=== PATIENT | female | born 1945 | race Caucasian/White ===

== ENCOUNTER 2017-06-22 13:08 | Emergency (ER) | payer MEDICARE ==
[~2017-06-22] VITALS: Ht 157.5 cm; Wt 45.4 kg
[~2017-06-22 13:08] MED LIST: ACIDOPHILUS1 EAC3 PO; ACIDOPHILUS1 EAC4 PO; ASPIR 8181 M1 PO; AUGMENTIN 875-1 EACH PO; AZITHROMYCIN 2250 MG PO; B COMPLEX1 EACH PO; CLONAZEPAM; CLONAZEPAM 0.50.5 M1 PO; DOXYCYCLINE 10100 MG PO; DUONEB 2.5-0.5 M3 ML IH; ELEMENTAL CALC600 MG PO; ENOXAPARIN30 MG/0.1 SUBQ; GABAPENTIN 100100 MG PO; KEFLEX250 MG PO; LEVAQUIN 500 M500 M2 PO; LISINOPRIL20 MG PO; MUCINEX TA600 MG/TA2 PO; NAPROSYN500 MG PO; NORCO 5-325 TA1 EACH PO; NORVASC10 MG PO; OMEPRAZOLE20 M1 PO; OXYCODONE HCL 55 MG PO; PENTOXIFYLLINE400 MG PO; PERCOCET PO; PLAVIX 75 MG TA75 M1 PO; PREDNISONE 10 M10 M1 PO; PREDNISONE 10 M10 MG PO; PROAIR HFA8.5 GM IH; PROTONIX40 M1 PO; SILVER NITRATE30 GM TP; SYNTHROID50 MCG PO; THERA M PLUS T1 EAC2 PO; TRAMADOL 50 MG50 MG PO; TYLENOL325 MG PO; VANCOCIN 125 M125 M1 PO; VANCOCIN 250 M250 M1 PO; VANCOMYCIN HCL125 MG PO; VITAMIN D1000 UNI1 PO; ZANTAC 150MG T150 M1; ZANTAC 150MG T150 MG PO
[2017-06-22 14:27] LABS: URINE BILIRUBIN NEGATIVE (Negative); URINE BLOOD NEGATIVE (Negative); URINE CLARITY CLEAR; URINE COLOR YELLOW; URINE GLUCOSE-RANDOM NEGATIVE (Negative); URINE KETONES NEGATIVE (Negative); URINE LEUKOCYTES-REFLEX 1+ (Negative); URINE NITRITE-REFLEX NEGATIVE (Negative); URINE PROTEIN NEGATIVE (Negative); URINE UROBILINOGEN 0.2 E.U./dl (0.2-1.0)
[2017-06-22] MEDS ORDERED: LORCET 5-325 M1 EACH PO (14:45)
[2017-06-22] MEDS ORDERED: DIFLUCAN150 MG PO (14:45)
[2017-06-22 14:55] LABS: BACTERIA-REFLEX None Seen /HPF (None Seen); CRYSTALS None Seen /LPF (None Seen); HYALINE CASTS 0-3 Few /LPF (None Seen); MUCUS 0-3 Light strn/LPF (None Seen); SQUAMOUS 0-3 Few /LPF (0-3); URINE RBC 0-2 Rare /HPF (0-2); URINE WBC-REFLEX 0-5 Rare /HPF (0-5)
[2017-06-22 15:39] VITALS: BP 166/52
== END 2017-06-22 15:40 | disposition home or self-care (01) ==
LOC: M.ERS 13:08
PROVIDERS: Physician Assistant
DX: N76.0 Acute vaginitis (principal); J44.9 Chronic obstructive pulmonary disease, unspecified; Z88.6 Allergy status to analgesic agent; Z88.1 Allergy status to other antibiotic agents; Z88.2 Allergy status to sulfonamides; Z88.8 Allergy status to other drugs, medicaments and biological substances

== ENCOUNTER 2017-07-28 10:08 | Emergency (ER) | payer MEDICARE ==
[~2017-07-28] VITALS: Ht 152.4 cm; Wt 41.7 kg
[~2017-07-28 10:08] MED LIST changes: +DIFLUCAN150 MG PO; +LORCET 5-325 M1 EACH PO
[2017-07-28] MEDS ORDERED: DOXYCYCLINE 10100 M1 PO (10:22)
[2017-07-28] MEDS ORDERED: CYCLOBENZAPRINE5 MG PO (10:32)
[2017-07-28] MEDS ORDERED: PREDNISONE 10 M10 MG PO (10:32)
[2017-07-28 11:05] VITALS: BP 189/70
== END 2017-07-28 11:06 | disposition home or self-care (01) ==
LOC: M.ERS 10:08
DX: M54.32 Sciatica, left side (principal); J44.9 Chronic obstructive pulmonary disease, unspecified; Z88.1 Allergy status to other antibiotic agents; Z88.2 Allergy status to sulfonamides; Z88.8 Allergy status to other drugs, medicaments and biological substances

== ENCOUNTER 2017-07-30 14:20 | Inpatient (IN) | payer MEDICARE ==
[~2017-07-30] VITALS: Ht 154.9 cm; Wt 44.5 kg
[~2017-07-30 14:20] MED LIST changes: +CYCLOBENZAPRINE5 MG PO; +DOXYCYCLINE 10100 M1 PO
[2017-07-30 14:28] VITALS: BP 179/68
[2017-07-30 15:08] LABS: ABSOLUTE EOSINOPHILS 0.1 thou/uL (0.0-0.7); ABSOLUTE LYMPHOCYTES 3.8 thou/uL (0.8-5.3); ABSOLUTE MONOCYTES 0.6 thou/uL (0.0-1.2); ABSOLUTE NEUTROPHILS 7.7 thou/uL (1.6-8.1); BASOPHILS 0.4 %; EOSINOPHILS 0.4 %; HEMATOCRIT 36.4 % (37.0-47.0); LYMPHOCYTES 31.1 %; MCH 31.3 pg (26.0-34.0); MCV 94.9 fL (80.0-100.0); MONOCYTES 5.2 %; MPV 6.4 fl. (7.2-11.1); NUCLEATED RBCS 0 /100WBC; PLATELET COUNT* 357 thou/uL (150-400); POLYS 62.9 %; RBC 3.83 mil/uL (4.20-5.00); RDW-CV 16.2 % (10.5-14.5); WBC 12.3 thou/uL (4.0-11.0)
[2017-07-30 15:17] LABS: PROTIME 9.5 Seconds (9.20-11.50)
[2017-07-30 15:19] LABS: ANION GAP 9 mmol/L (7-16); BUN 24 mg/dL (7-18); CALCIUM 8.7 mg/dL (8.5-10.1); CHLORIDE 106 mmol/L (98-107); CO2 28 mmol/L (21-32); CREATININE 1.3 mg/dL (0.6-1.3); GLUCOSE 87 mg/dL (70-99); POTASSIUM 4.4 mmol/L (3.5-5.1); SODIUM 143 mmol/L (136-145)
[2017-07-30 15:30] LABS: ALBUMIN 3.3 g/dL (3.4-5.0); ALKALINE PHOSPHATASE 117 U/L (46-116); NT-PRO BRAIN NAT PEPTIDE 339 pg/mL (<300); SGOT 29 U/L (15-37); SGPT 25 U/L (30-65); TOTAL BILIRUBIN 0.3 mg/dL (<0.1-1.0); TOTAL PROTEIN 7.4 g/dL (6.4-8.2); TROPONIN-I LEVEL <0.06 ng/mL (<0.06)
[2017-07-30 16:54] VITALS: BP 147/46
[2017-07-30 18:00] VITALS: BP 160/64
--- NOTE | 2017-07-30 18:01 | NUR ---
VSS, ASSUMED CARE OF PT FROM ER, ASSESSMENT PERFORMED AND CHARTED, FALL PRECAUTIONS IN PLACE AND CALL LIGHT IN REACH, PT IS A&O4 BUT CAN BE FORGETFUL. IS MED-HARSHAL STATUS AND ON RA, PT HAS REFUSED BED ALARM AND REFUSES TO CALL OUT FOR HELP, SHE IS UP IN ROOM WALKING DENIES ANY NEED FOR HELP AND STATES "I WILL BE CAREFUL AND NOT FALL" I HAVE PROVITED EDUCATION ON THE IMPROTANCE FOR CALLING OUT FOR HELP, PT STATES SHE UNDERSTANDS BUT STILL REFUSES FALL PRECAUTIONS. PT DENIES ANY PAIN, SKIN IS INTACT AND LINGS ARE CLR/DIM. WILL FOLLOW WITH PLAN OF CARE,
[2017-07-30 20:25] VITALS: BP 132/54
[2017-07-31] VITALS: BP 112/55
[2017-07-31 05:13] LABS: HEMATOCRIT 29.6 % (37.0-47.0); MCH 31.6 pg (26.0-34.0); MCHC 33.3 g/dL (28.0-37.0); MCV 94.7 fL (80.0-100.0); MPV 6.8 fl. (7.2-11.1); RBC 3.13 mil/uL (4.20-5.00); RDW-CV 16.4 % (10.5-14.5); WBC 11.5 thou/uL (4.0-11.0)
--- NOTE | 2017-07-31 05:16 | NUR ---
Pt reports having intermittent leg cramps, rating pain 10/10 while cramping. Getting only partial relief with medication, but pt has been able to get some sleep. VSS. Remains on RA. Will continue to monitor.
[2017-07-31 05:28] LABS: HEMOGLOBIN 9.9 gm/dL (12.0-15.0)
[2017-07-31 05:40] LABS: ALBUMIN 2.9 g/dL (3.4-5.0); CALCIUM 8.3 mg/dL (8.5-10.1); CREATININE 1.4 mg/dL (0.6-1.3); TOTAL BILIRUBIN 0.2 mg/dL (<0.1-1.0); TOTAL PROTEIN 5.9 g/dL (6.4-8.2)
[2017-07-31 05:52] LABS: POTASSIUM 5.9 mmol/L (3.5-5.1)
--- NOTE | 2017-07-31 10:34 | EKG ---
[place] [address] ELECTROCARDIOGRAM REPORT Name: CHAYO PRESTON Room: [address] ADM IN .R.#: [id number] Admission: 07/30/17 Attend Phys: Izzy Aldana MD Discharge: Date of : 45 Report #: [id number] REPORT FOR: //name// [facility] ED Test Date: 2017-07-30 Test Time: 14:48:38 Pat Name: CHAYO PRESTON Department: Room: [facility] Gender: F Belt Turner: MS : 1945 Requested By: Ed Bass Order Number: [id number] MD: Ismael Zhang Measurements Intervals [place] Rate: 81 P: 50 MS: 116 QRS: -1 QRSD: 84 T: 53 QT: 347 QTc: 403 Interpretive Statements Sinus rhythm Borderline short MS interval Compared to ECG 05/14/2017 10:01:05 No significant changes Electronically Signed On 07-31-2017 10:34:50 SHIP [employer]EWARD by Ismael Zhang [email or web address] <ELECTRONICALLY SIGNED> By: Ismael Zhang MD, [facility] 07/31/17 1034 1448 [id number] Ismael Zhang MD, [facility] /EPI
--- NOTE | 2017-07-31 10:47 | NUR ---
CM ASSESSMENT: Pt is A&O. Resides at home with her hushband and dtr. Pt is independent with ADLs, continues to cook and clean, Pt does not drive. Pt has a walker that she can use for mobility. Hx of [facility]. Hx of [facility] SNF. Discussed disposition, Pt states "I'm awfully weak, I want to go back to [facility] for rehab." Spoke with Chrissy at [facility], Pt is good on skilled days. PT/OT evals to be ordered. Following for dc needs.
[2017-07-31 13:19] LABS: CALCIUM 8.2 mg/dL (8.5-10.1); CREATININE 1.5 mg/dL (0.6-1.3)
[2017-07-31 13:21] LABS: POTASSIUM 4.7 mmol/L (3.5-5.1)
--- NOTE | 2017-07-31 19:32 | NUR ---
ASSUMED CARE OF PT AT 0730. PT CONTINUES TO BE A&O CALM AND COOPERATIVE. SHE IS FORGETFUL AT TIMES. PT C/O BACK PAIN HAS BEEN CONTROLLED WITH PRN PO PAIN MEDICATIONS. PT UP WITH SBA TO THE BATHROOM WHERE SHE HAS BEEN VOIDING VIA TOILET. PT VSS AND DENIES ANY C/O DISTRESS. NURSING WILL CONTINUE TO MONITOR.
[2017-07-31 20:02] VITALS: BP 109/47
[2017-08-01 00:07] VITALS: BP 117/48
[2017-08-01 05:04] LABS: HEMATOCRIT 29.8 % (37.0-47.0); MCH 31.7 pg (26.0-34.0); MCHC 33.6 g/dL (28.0-37.0); MCV 94.4 fL (80.0-100.0); MPV 6.5 fl. (7.2-11.1); RBC 3.16 mil/uL (4.20-5.00); RDW-CV 16.4 % (10.5-14.5); WBC 7.7 thou/uL (4.0-11.0)
[2017-08-01 05:48] LABS: ALBUMIN 2.8 g/dL (3.4-5.0); CALCIUM 7.8 mg/dL (8.5-10.1); CREATININE 1.5 mg/dL (0.6-1.3); MAGNESIUM 1.6 mg/dL (1.8-2.4); POTASSIUM 4.6 mmol/L (3.5-5.1); TOTAL BILIRUBIN 0.2 mg/dL (<0.1-1.0); TOTAL PROTEIN 5.5 g/dL (6.4-8.2)
--- NOTE | 2017-08-01 07:45 | NUR ---
ASSUMED CARE OF PT ASSESSED AND DOCUMENTED. PT IS MED SURG. SHE IS A&O WITH NO C/O PAIN. PT IS ON ROOM AIR. VSS WNL. PT IS AFEBRILE. PT HAS WHEEZING NOTED IN HER R LOWER LOBE. BED IS IN LOW POSITION CALL LIGHT IS IN REACH. WM.
--- NOTE | 2017-08-01 07:55 | NUR ---
Pt reports she slept very well overnight. No complaints, VSS. Received melatonin and ambien at HS. At 2250 pt found walking in hallway, not oriented to place or situation. Assisted pt back to her bed and set bed alarm. Pt went back to sleep soon afterward. Got up twice since to use restroom, which set off bed alarm. Pt was oriented at this point, but continued to use bed alarm. Will continue to monitor.
[2017-08-01 08:00] VITALS: BP 109/39
[2017-08-01 09:00] VITALS: BP 109/39
[2017-08-01 16:00] VITALS: BP 140/49
--- NOTE | 2017-08-01 17:47 | NUR ---
PT HAS RESTED IN HER ROOM WATCHING TV AND TALKING ON THE PHONE. FAMILY HAS BEEN AT BED SIDE. MG+ PROTOCOL IN PLACE AND WAITING FOR REDRAW. FLUIDS WERE D/C'D THIS SHIFT. PT WAS TOLD SHE MAY GO HOME TOMORROW AND SHE DOESNT FEEL READY. SHE IS TO SPEAK TO DOC IF SHE FEELS THIS WAY TOMORROW. EDUCATION GIVEN ON DEMAND. HOURLY ROUNDING COMPLETE.
[2017-08-01 20:00] VITALS: BP 136/48
[2017-08-02 00:06] VITALS: BP 130/49
--- NOTE | 2017-08-02 05:15 | NUR ---
ASSUMED CARE AROUND 1930. PT A/OX4. SLEEPING MEDS GIVEN LAST NIGHT AND PT GOT VERY ANXIOUS AND REPORTED BACK PAIN THAT SHE REPORTED RADIATED TO HER VAGINA. PT APPEARED TO BE HAVING SPASMS AND IN TEARS FOR ABOUT TWO HOURS. PRN PAIN MEDS GIVEN AND HEATING PAD APPLIED WITH SOME RELIEF. PT CONTINUED TO BE VERY ANXIOUS AND RESTED LITTLE. MED/SURG STATUS. ON ROOM AIR. IV SALINE LOCKED. VSS, AFEBRILE. UP SBA JUST D/T DROWSINESS WITH HS MEDICATIONS. CALL LIGHT IN REACH, BEDALARM IN PLACE, WILL CONTINUE WITH PLAN OF CARE.
[2017-08-02 05:19] LABS: HEMATOCRIT 27.5 % (37.0-47.0); HEMOGLOBIN 9.3 gm/dL (12.0-15.0); MCH 31.6 pg (26.0-34.0); MCHC 33.8 g/dL (28.0-37.0); MCV 93.5 fL (80.0-100.0); MPV 6.4 fl. (7.2-11.1); RBC 2.94 mil/uL (4.20-5.00); RDW-CV 16.8 % (10.5-14.5); WBC 14.6 thou/uL (4.0-11.0)
[2017-08-02 05:20] LABS: CALCIUM 7.9 mg/dL (8.5-10.1); CREATININE 1.3 mg/dL (0.6-1.3); POTASSIUM 4.3 mmol/L (3.5-5.1)
[2017-08-02 07:55] VITALS: BP 114/42
[2017-08-02] MEDS ORDERED: MELATONIN5 M1 PO (09:43)
[2017-08-02] MEDS ORDERED: PULMICORT0.5 MG/2 M INH (09:43)
[2017-08-02] MEDS ORDERED: DUONEB 2.5-0.5 M3 ML INH (09:43)
[2017-08-02] MEDS ORDERED: PREDNISONE 20 M20 M1 PO (09:45)
--- NOTE | 2017-08-02 09:58 | NUR ---
Pt should be ready to dc tomorrow to [facility] [place], spoke with Chrissy at [facility], they are able to accept Pt tomorrow. DC orders need to be faxed to [phone]. Call Chrissy at [phone] to arrange dc and transport. Nurse report number is [phone]. Chart will need to be copied.
[2017-08-02 11:59] VITALS: BP 124/47
--- NOTE | 2017-08-02 13:12 | NUR ---
RECEIVED REPORT. ASSUMED CARE OF PT AT 0730. PT A&OX4, SEEMS A BIT ANXIOUS. VSS. O2 SAT 93% ON RA. PT HAVING SOME FACIAL TWITCHING AND SPEECH IS SLIGHTLY SLURRED - PAST CVA SEQUALE. PT IS M/S STATUS. AM ASSESSMENT AND VITALS COMPLETED CHARTED. IV SALINE LOCKED. PT REPORTED CHRONIC BACK PAIN AT 6/10 THIS AM, RECEIVED PO PAIN MEDICATION WITH PARTIAL RELIEF. PT INFORMED OF PLAN OF CARE, COMMUNICATES UNDERSTANDING. PT STATED THIS MORNING "I'M NOT SURE I'M READY TO LEAVE THE HOSPITAL, I FEEL WEAK STILL." PT EDUCATED THAT SHE WILL BE DISCHARGING TO A REHAB FACLITY TO GET STRONGER. PT COMMUNICATES UNDERSTANDING. PT UP WITH STAND BY ASSIST TO THE BATHROOM; VOIDING WITHOUT ISSUE. PT EATING AND DRINKING WITHOUT ISSUE. HIGH FALL RISK PRECAUTIONS ARE IN PLACE. CALL LIGHT IS WITHIN REACH. WILL CONTINUE TO MONITOR.
[2017-08-02 15:56] VITALS: BP 110/38
--- NOTE | 2017-08-02 19:00 | NUR ---
PT REMAINS A/OX4. VSS. O2 SAT >90% ON ROOM AIR. M/S STATUS. LOST IV ACCESS - AWAITING RESPONSE FROM REQUEST TO LEEAVE IV OUT. PT HAS DENIED PAIN OR DISCOMFORT THE REST OF THE SHIFT. PT WORKED WITH PT/0T TODAY. PT UP WITH ASSIST X1 TO THE BATHROOM TO VOID, NO ISSUES. PT EATING AND DRINKING WITHOUT ISSUE. PT PROGESSING TOWARDS GOALS, MAY DC IN AM TO SNF. HIGH FALL RISK PRECAUTIONS IN PLACE. PT REPOSITIONING SELF IN THE BED FOR COMFORT. CALL LIGHT IS WITHIN REACH. HOURLY ROUNDING PERFORMED.
[2017-08-02 20:00] VITALS: BP 131/48
[2017-08-02 23:58] VITALS: BP 130/54
--- NOTE | 2017-08-03 05:25 | NUR ---
ASSUMED CARE AROUND 1930. PT A/OX4, RESTED SOME TONIGHT. PT VERY CONFUSED WITH SLEEPING MEDS. PT IMPULSIVE AND SETTING OFF BEDALARM ON A FEW OCCASIONS. PT REPORTING LEG/BACK SPASMS AGAIN TONIGHT BUT NOT MUCH LAST NIGHT. MED/SURG STATUS. ON ROOM AIR. NO IV ACCESS. UP SBA TO BR WITH WALKER. VSS, AFEBRILE. PRN PAIN MEDS GIVEN AND KPAD ON BACK. SEE OTHER CHARTING. CALL LIGHT IN REACH, BEDALARM ON, WILL CONTINUE WITH PLAN OF CARE.
[2017-08-03 08:10] VITALS: BP 143/46
[2017-08-03 12:05] VITALS: BP 144/59
[2017-08-03] MEDS ORDERED: TESSALON PERLE100 MG PO (12:52)
[2017-08-03] MEDS ORDERED: NYSTATIN100000 UNI PO (12:52)
[2017-08-03 13:40] VITALS: BP 144/59
--- NOTE | 2017-08-03 13:47 | NUR ---
CM WAS INFORMED BY DR SOTO THAT THE PATIENT IS READY TO D/C. CM SPOKE TO THE PATIENT TO DISCUSS DISCHARGE PLANNING NEEDS, AND ANY QUESTIONS OR CONCERNS THAT SHE MAY HAVE. PATIENT HAS NO QUESTIONS OR CONCERNS AT THIS TIME. CM SPOKE TO [facility] TO INFORM OF THE PATIENTS DISCHARGE. ALVARO IN AGREEMENT. CM FAXED PATIENTS D/C ORDERS TO [facility]. CM CONTACTED [facility] AND SETUP TRANSPORTATION TO [facility] AT [phone]. CM SPOKE TO THE RN IN-CHARGE OF THE PATIENT AND INFORMED OF THE PATIENTS DISCHARGE, TIME OF TRANSPORT AND WHERE TO CALL REPORT. CM WILL REMAIN AVIALABLE TO ASSIST AND FOLLOW NEEDED.
--- NOTE | 2017-08-03 15:15 | NUR ---
PT WITH COMPLETE DC ORDER. REVIEWED DC INSTRUCTIONS AND MED LIST WITH PT. ANSWERED QUESTIONS TO PT SATISFACTION. MONITOR AND IV HAD BEEN DC'D SINCE 08/02/17. PT IN POSSESSION OF ALL BELONGINGS. TRANSPORTER HERE TO TAKE PT TO [facility]IA [facility]. PT LEFT UNIT VIA AT THIS TIME. THIS NURSE ACCOMPANIED TRANSPORTER AND PT WITH HER BELONGINGS TO [facility].
== END 2017-08-03 15:27 | DRG 189 ==
LOC: M.ERS 14:20 → M.TBA-ER 15:51 → M.2W 15:51
PROVIDERS: Emergency Medicine; ADMIT Internal Medicine
DX: J96.21 Acute and chronic respiratory failure with hypoxia (principal); J44.1 Chronic obstructive pulmonary disease with (acute) exacerbation; N17.9 Acute kidney failure, unspecified; R65.10 Systemic inflammatory response syndrome (SIRS) of non-infectious origin without acute organ dysfunction; Z90.49 Acquired absence of other specified parts of digestive tract; Z88.6 Allergy status to analgesic agent; Z95.820 Peripheral vascular angioplasty status with implants and grafts; Z88.1 Allergy status to other antibiotic agents; Z88.2 Allergy status to sulfonamides; Z80.1 Family history of malignant neoplasm of trachea, bronchus and lung; Z88.8 Allergy status to other drugs, medicaments and biological substances; Z87.891 Personal history of nicotine dependence; Z86.718 Personal history of other venous thrombosis and embolism

== ENCOUNTER 2017-08-20 10:20 | Inpatient (IN) | payer MEDICARE ==
[~2017-08-20] VITALS: Ht 152.4 cm; Wt 49.0 kg
[~2017-08-20 10:20] MED LIST changes: +DUONEB 2.5-0.5 M3 ML INH; +MELATONIN5 M1 PO; +NYSTATIN100000 UNI PO; +PREDNISONE 20 M20 M1 PO; +PULMICORT0.5 MG/2 M INH; +TESSALON PERLE100 MG PO
[2017-08-20 10:39] VITALS: BP 185/72
[2017-08-20] MEDS ORDERED: DUONEB 2.5-0.5 M3 ML INH (10:46)
[2017-08-20] MEDS ORDERED: PLAVIX 75 MG TA75 M1 PO (10:47)
[2017-08-20 12:01] LABS: HEMATOCRIT 37.7 % (37.0-47.0); HEMOGLOBIN 12.6 gm/dL (12.0-15.0); MCHC 33.5 g/dL (28.0-37.0); MCV 95.4 fL (80.0-100.0); MPV 6.2 fl. (7.2-11.1); NUCLEATED RBCS 0 /100WBC; PLATELET COUNT* 312 thou/uL (150-400); RBC 3.95 mil/uL (4.20-5.00); WBC 15.1 thou/uL (4.0-11.0)
[2017-08-20 12:06] LABS: CALCIUM 9.1 mg/dL (8.5-10.1); CREATININE 1.2 mg/dL (0.6-1.3); POTASSIUM 4.3 mmol/L (3.5-5.1)
[2017-08-20 12:07] LABS: BE -0.2 mmol/L (-2 to +3); HCO3 22.5 mmol/L (22.0-26.0); pH 7.479 (7.340-7.450)
[2017-08-20 12:09] LABS: PO2 48.3 mmHg (75.0-100.0)
[2017-08-20 12:11] LABS: TOTAL BILIRUBIN 0.8 mg/dL (<0.1-1.0); TOTAL PROTEIN 7.6 g/dL (6.4-8.2)
[2017-08-20 12:25] LABS: ALBUMIN 2.9 g/dL (3.4-5.0)
[2017-08-20 12:59] LABS: ABSOLUTE LYMPHOCYTES 2.7 thou/uL (0.8-5.3); ABSOLUTE MONOCYTES 0.6 thou/uL (0.0-1.2); ABSOLUTE NEUTROPHILS 11.8 thou/uL (1.6-8.1); ANISOCYTOSIS 1+; PLATELET ESTIMATE ADEQUATE; POIKILOCYTOSIS 1+
[2017-08-20 14:23] VITALS: BP 150/63
[2017-08-20 14:23] LABS: URINE BILIRUBIN NEGATIVE (Negative); URINE BLOOD TRACE (Negative); URINE CLARITY CLEAR; URINE COLOR YELLOW; URINE GLUCOSE-RANDOM NEGATIVE (Negative); URINE KETONES TRACE (Negative); URINE LEUKOCYTES-REFLEX NEGATIVE (Negative); URINE NITRITE-REFLEX NEGATIVE (Negative); URINE PROTEIN 1+ (Negative); URINE SPECIFIC GRAVITY <= 1.005 (1.005-1.030); URINE UROBILINOGEN 0.2 E.U./dl (0.2-1.0)
[2017-08-20 16:00] VITALS: BP 142/61
--- NOTE | 2017-08-20 17:55 | NUR ---
PT ADMITTED WITH PNEUMONIA COARSE AND WHEEZING UPON ARRIVAL IV FLUIDS RUNNING AND IV ABTS C/O PAIN TO BOTTOM AND BACK X-RAYS DONE Q2H TURN PT DIAPHORETIC AND CLAMMY BUT C/O BEING COLD FAMILY AT BEDSIDE EARLIER CAME OUT OF REHAB ON SATURDAY AND STILL WEAK COUGHING FREQUENTLY AND SORE ALL OVER
[2017-08-20 20:32] VITALS: BP 149/59
[2017-08-21] VITALS: BP 122/47
[2017-08-21 04:00] VITALS: BP 131/53
[2017-08-21 04:32] LABS: ABSOLUTE EOSINOPHILS 0.1 thou/uL (0.0-0.7); ABSOLUTE MONOCYTES 0.4 thou/uL (0.0-1.2); ABSOLUTE NEUTROPHILS 10.3 thou/uL (1.6-8.1); BASOPHILS 0.2 %; EOSINOPHILS 0.7 %; HEMATOCRIT 29.5 % (37.0-47.0); LYMPHOCYTES 8.1 %; MCH 32.7 pg (26.0-34.0); MCHC 34.4 g/dL (28.0-37.0); MCV 95.1 fL (80.0-100.0); MONOCYTES 3.5 %; MPV 6.4 fl. (7.2-11.1); NUCLEATED RBCS 0 /100WBC; PLATELET COUNT* 272 thou/uL (150-400); POLYS 87.5 %; RBC 3.11 mil/uL (4.20-5.00); RDW-CV 16.7 % (10.5-14.5); WBC 11.7 thou/uL (4.0-11.0)
[2017-08-21 04:57] LABS: HEMOGLOBIN 10.2 gm/dL (12.0-15.0)
--- NOTE | 2017-08-21 06:47 | NUR ---
Pt slept overnight. Up to BSC to void w/ min assist. Pt diaphoretic for first half of shift, soaking her gown and bed linens. BG 90, and VSS. Afebrile at beginning of shift, but ran T of 101 at 0400. Tylenol given. T down to 99.1 just before 0600. Pt c/o pain to bilat buttocks. States she thinks she pulled some muscles while working with therapy a few days ago. Tramadol given as ordered per patient request; reports some relief afterwards. Will continue to monitor.
[2017-08-21 08:00] VITALS: BP 88/40
--- NOTE | 2017-08-21 10:18 | NUR ---
ASSUMED PATIENT CARE THIS MORNING AT 7:15 AM. REPORT RECEIVED FROM NURSE. PATIENT IS ALERT, AWAKE, ORIENTED X 3 TO 4. VITALS SIGNS TAKEN, BP 88/40, HR 73, O2 SATURATION 100 ON 2 L NC. TEMP 97.4. BLOOD PRESSURE WAS RECHECKED 1 HOUR LATER BEFORE AM [facility] ADMINISTRATION. NEW READING 123/47.. SINUS RYHTM ON THE MONITOR. MRSA SWAB PERFORMED AT BEDSIDE. ASSESSMENT PERFORMED WELL. REFER TO CHART. GOAL IS TO MAINTAIN OXYGENATION, PREVENT FALL, OOB TO CHAIR, IV ANTIBIOTICS. 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 DID COMPLAIN OF PAIN LEVEL OF 10 IN RIGHT UPPER BACK. TRAMADOL WAS ADMISNINTERED. WILL CONTINUE MONITORING
[2017-08-21 12:00] VITALS: BP 129/60
--- NOTE | 2017-08-21 13:48 | NUR ---
TRAMADOL WAS ADMINISTERED FOR PAIN THIS AM IN R UPPER BACK. PT WAS COMPLAINING OF PAIN LEVEL OF THAT INCREASES WITH WALKING AND STANDING. PAIN RECHECKED ONE HOUR AFTER. PATIENT STATED : "NO PAIN AT THIS TIME". THEN 2 HOURS AFTER THAT, MONITOR FOR PAIN, PATIENT COMPLIAN OF PAIN LEVEL OF 6 WHEN TAKING DEEP BREATH IN RIGHT UPPER BACK AREA. LIDOCAINE PATCH WAS ADMINISTERED ORDERED.WILL CONTINUE TO MONITOR FOR PAIN
--- NOTE | 2017-08-21 15:13 | NUR ---
Pt currently working with PT. Pt known to this CM from previous hospital stay. Per chart, Pt discharged from [facility] yesterday, and ended up coming to the hospital, admitted with PNA w/ back and sacral pain. Pt normally resides at home with her and dtr. CM to f/u later to discuss home situation. Per OT, Pt requested info for the [facility] dental school, CM to provided. Following.
[2017-08-21 16:00] VITALS: BP 132/47
--- NOTE | 2017-08-21 18:59 | NUR ---
HYDROCODONE ADMINISTERED FOR PAIN LEVEL OF 6. RECHECKED PAIN AFTER 1 HOUR PATIENT STATES PAIN WENT DOWN TO 4. COLD COMPRESSED WAS APPLIED FOR TEMPERATURE OF 101.1 AND TYLENOL WAS ADMINISTERED. TEMPERATURE READING IS NOW 99.8 ORALLY. PATIENT IS MORE AWAKE. NOW LAYING IN BED. VITALS ARE WITHIN NORMAL LIMIT. PAGE WAS SENT TO DR ORDOÑEZ COVERING FOR DR SOTO REGARDING CONTINUOUS PAIN AND TEMPERATURE ISSUE.
[2017-08-21 20:22] VITALS: BP 101/39
[2017-08-22 00:09] VITALS: BP 92/33
[2017-08-22 04:08] VITALS: BP 102/54
--- NOTE | 2017-08-22 05:09 | NUR ---
Temp 100.3 axillary at beginning of shift, then afebrile for remainder of shift. Breath snds improved from previous night. VSS, though BP 90s-100s/30s. No complaints from patient. Congested sounding non-productive cough early this morning. Reports no BM since prior to admission; warm mixture of apple juice & prune juice given. Will continue to monitor.
[2017-08-22 08:00] VITALS: BP 107/42
--- NOTE | 2017-08-22 09:18 | NUR ---
ASSUMED PATIENT CARE THIS AM AT 7:15 . RECEIVED REPORT FROM NURSE. PATIENT IS ALERT, AWAKE , ORIETED X 3. FORGETFUL AT TIMES. VITAL SIGNS WITHIN NORMAL LIMIT. TEMPERATURE 98.1. COMPLAIN OF PAIN LEVEL OF 8 IN LOWER BACK. LIDOCAINE TO BE ADMINISTERED AT THE HURTING SPOT. PATIENT STATES CONCERN ABOUT PAIN. GOAL IS TO TREAT PAIN, PROMOTE MOVEMENT, PREVENT FALL, RELIEVE CONSTIPATION. DR SOTO ALREADY CONTACTED TO ORDER SOME STOOL SOFTENER. VANCO THROUGH AND XRAY OF CHEST TO BE DONE TODAY. IV LINE IN L HAND PATENT, FLUID INFUSING AT 150 CC/HR WILL CONTINUE TO MONITOR.
[2017-08-22 12:05] VITALS: BP 110/47
[2017-08-22 15:13] LABS: ABSOLUTE EOSINOPHILS 0.1 thou/uL (0.0-0.7); ABSOLUTE LYMPHOCYTES 1.2 thou/uL (0.8-5.3); ABSOLUTE MONOCYTES 0.5 thou/uL (0.0-1.2); ABSOLUTE NEUTROPHILS 8.7 thou/uL (1.6-8.1); BASOPHILS 0.2 %; EOSINOPHILS 0.9 %; HEMATOCRIT 25.5 % (37.0-47.0); HEMOGLOBIN 8.7 gm/dL (12.0-15.0); LYMPHOCYTES 11.7 %; MCHC 34.3 g/dL (28.0-37.0); MCV 96.2 fL (80.0-100.0); MONOCYTES 5.1 %; MPV 6.3 fl. (7.2-11.1); NUCLEATED RBCS 0 /100WBC; PLATELET COUNT* 256 thou/uL (150-400); POLYS 82.1 %; RBC 2.65 mil/uL (4.20-5.00); RDW-CV 16.5 % (10.5-14.5); WBC 10.5 thou/uL (4.0-11.0)
[2017-08-22 15:27] LABS: CALCIUM 7.9 mg/dL (8.5-10.1); CREATININE 1.4 mg/dL (0.6-1.3); POTASSIUM 4.4 mmol/L (3.5-5.1)
[2017-08-22 15:31] LABS: MAGNESIUM 1.7 mg/dL (1.8-2.4); TOTAL BILIRUBIN 0.4 mg/dL (<0.1-1.0); TOTAL PROTEIN 5.7 g/dL (6.4-8.2)
[2017-08-22 16:18] VITALS: BP 127/82
--- NOTE | 2017-08-22 16:40 | 2DMMODE ---
[place] [address] 2 D/M-MODE ECHOCARDIOGRAM Name: CHAYO PRESTON Room: [address] IN [facility]#: [id number] Admission: 08/20/17 Attend Phys: Izzy Aldana, Discharge: Date of : 45 Date of Service: 08/22/17 1639 Report #: [id number] THIS REPORT FOR: //name// APPROVED REPORT Study performed: 08/22/2017 15:20:20 EXAM: Comprehensive 2D, Doppler, and color-flow Echocardiogram Patient Location: In-Patient Room #: 229 Status: routine BSA: 1.39 HR: 96 bpm BP: 110/47 mmHg Rhythm: NSR Other Information Study Quality: Good Indications Dyspnea 2D Dimensions LVEF(%): 75.27 (>50%) IVSd: 8.14 (7-11mm) LVOT Diam: 18.82 (18-24mm) LVDd: 38.41 mm PWd: 8.25 (7-11mm) Ascending Ao: 32.35 (22-36mm) LVDs: 21.74 (25-40mm) Aortic Root: 30.14 mm Beck's LVEF: 75.27 % Volumes Left Atrial Volume (Systole) LA ESV Index: 19.40 mL/m2 Aortic Valve AoV Peak Deepak.: 1.77 m/s AO Peak Gr.: 12.51 mmHg LVOT Max P.94 mmHg AO Mean Gr.: 6.64 mmHg LVOT Mean P.67 mmHg LVOT Max V: 1.58 m/s AO V2 VTI: 31.48 cm LVOT Mean V: 1.12 m/s CHERELLE (VTI): 2.70 cm2 LVOT V1 VTI: 30.50 cm AI Bollinger: 4.40 m/s2 AI PHT: 253.05 [place] [address] 2 D/M-MODE ECHOCARDIOGRAM Name: CHAYO PRESTON Room: [address] IN [facility]#: [id number] Admission: 08/20/17 Attend Phys: Izzy Aldana, Discharge: Date of : 45 Date of Service: 08/22/17 1639 Report #: [id number] Mitral Valve E/A Ratio: 0.84 MV Decel. Time: 179.39 ms MV E Max Deepak.: 1.17 m/s MV PHT: 52.02 ms MVA (PHT): 4.23 cm2 TDI E/Lateral E': 9.00 E/Medial E': 9.00 Medial E' Deepak.: 0.13 m/s Lateral E' Deepak.: 0.13 m/s Pulmonary Valve PV Peak Deepak.: 0.93 m/s PV Peak Gr.: 3.45 mmHg Tricuspid Valve TR Peak Gr.: 24.30 mmHg RVSP: 29.00 mmHg Left Ventricle The left ventricle is normal size. There is normal LV segmental wall motion. There is normal left ventricular wall thickness. Left ventricular systolic function is normal. The left ventricular ejection fraction is within the normal range. LVEF is 60%. Grade I - abnormal relaxation pattern. Right Ventricle The right ventricle is normal size. The right ventricular systolic function is normal. Atria The left atrium size is normal. The right atrium size is normal. Aortic Valve Mild aortic valve sclerosis. Mild aortic regurgitation. There is no aortic valvular stenosis. Mitral Valve The mitral valve is normal in structure. There is no mitral valve regurgitation noted. No evidence of mitral valve stenosis. Tricuspid Valve The tricuspid valve is normal in structure. Mild tricuspid regurgitation. The RVSP is ___29____ mmHg[place] [address] 2 D/M-MODE ECHOCARDIOGRAM Name: MOHANCHAYO Ann Room: [address] IN M.R.#: [id number] Admission: 08/20/17 Attend Phys: Izzy Aldana, Discharge: Date of : 45 Date of Service: 08/22/17 1639 Report #: [id number] The pulmonary valve is normal in structure. There is no pulmonic valvular regurgitation. Great Vessels The aortic root is normal in size. IVC is normal in size and collapses with >50% inspiration Pericardium There is no pericardial effusion. <Conclusion> The left ventricle is normal size. There is normal left ventricular wall thickness. Left ventricular systolic function is normal. The left ventricular ejection fraction is within the normal range. LVEF is 60%. Grade I - abnormal relaxation pattern. The right ventricle is normal size. The left atrium size is normal. Mild aortic valve sclerosis. Mild aortic regurgitation. There is no aortic valvular stenosis. The mitral valve is normal in structure. The tricuspid valve is normal in structure. Mild tricuspid regurgitation. The RVSP is ___29____ mmHg. IVC is normal in size and collapses with >50% inspiration There is normal LV segmental wall motion. <ELECTRONICALLY SIGNED> By: Zachary Burkett MD, FACC 08/22/17 1639 [id number] Zachary Burkett MD, FACC /INF
--- NOTE | 2017-08-22 17:39 | NUR ---
PATIENT HAS BEEN STABLE DURING THE WHOLE DAY. PAIN MEDICATION HAS BEEN ADMINISTERED AROUND THE CLOCK. VITAL SIGNS HAS BEEN STABLE. 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 UA CULTURE HAS BEEN COLLOECTED AND SENT OT LAB. SPUTUM CULTURE PENDING. PATIENT HAS NOT BEEN ABLE TO COUGH ANY SPUTUM OUT. DR DEY DID SEE PT AND MED CHANGES ON MEDICATIONS. SEE EMAR. XRAY OF ABDOMEN RESULT NORMAL. LABS WERE RECEIVED AND RESULT COMMUNICATED TO DR. DEY OVER THE PHONE. AT 1730 PATIENT TRANSFER TO [facility] ROOM 114 VIA WHEELCHAIR ACCOPMPANIED WIHT O2 NC 2L. AND 2 TRANSPORTERS. BELONGINGS BROUGHT ALONG. REPORT COMMUNICATED TO NURSE. PATIENT' NOTIFIED OVER THE PHONE ABOUT TRANSFER.
--- NOTE | 2017-08-22 18:49 | NUR ---
ASSUMED CARE OF PATIENT AFTER TRANSFER FROM TELEMETRY. ALERT AND ORIENTED X4. AGREE WITH PREVIOUS NURSES ASSESSMENT. VSS ON 2 LITERS. PATIENT ORIENTED TO ROOM AND INSTRUCTED TO CALL FOR NEEDS. PATIENT HAS SUPPORTIVE FAMILY A BEDSIDE. HOURLY ROUNDS. CALL LIGHT IS WITHIN REACH. NURSING WILL CONTINUE TO MONITOR.
[2017-08-22 20:00] VITALS: BP 122/53
[2017-08-23 00:27] VITALS: BP 107/40
[2017-08-23 05:45] LABS: HEMATOCRIT 30.3 % (37.0-47.0); MCH 32.3 pg (26.0-34.0); MCV 97.7 fL (80.0-100.0); MPV 6.4 fl. (7.2-11.1); RBC 3.1 mil/uL (4.20-5.00); RDW-CV 16.5 % (10.5-14.5); WBC 10.4 thou/uL (4.0-11.0)
[2017-08-23 06:00] LABS: CALCIUM 8.5 mg/dL (8.5-10.1); CREATININE 1.2 mg/dL (0.6-1.3); MAGNESIUM 2.8 mg/dL (1.8-2.4); POTASSIUM 3.8 mmol/L (3.5-5.1)
--- NOTE | 2017-08-23 07:58 | NUR ---
Alert and oriented x 3 but can be forgetful and impulsive. Her bedalarm is on but she hasn't tried to get up unassisted this shift. She gets up with stand by assist x 1 and stand pivots to the bedside commode. She is voiding adequately. Lungs coarse sounding. She has a loose cough. She has scheduled ultram for pain and this has helped. She s slept well.
[2017-08-23 08:15] VITALS: BP 110/45
--- NOTE | 2017-08-23 13:42 | CON ---
[address] [address] CONSULTATION Name: CHAYO PRESTON Room: [address] IN .R.#: [id number] Admission: 08/20/17 Attend Phys: Izzy Aldana MD Discharge: Date of : 45 Report #: [id number] THIS REPORT FOR: //name// CC: Luca Aldana DATE OF SERVICE: 08/22/[address] Aldana. INDICATION FOR CONSULTATION: Pneumonia/pulmonary infiltrates. HISTORY OF PRESENT ILLNESS: This is a 71-year-old female. Past medical history includes a history of recurrent C. difficile colitis. The patient has had 2 episodes last year. The patient also has a history of COPD. On clinical grounds, I do not have any previous PFTs available. The patient is not on long-term oxygen and not on long-term prednisone. The patient in fact also had a recent admission with a COPD exacerbation towards the beginning of this month at which point the patient did get levofloxacin and then subsequently was discharged on doxycycline. The patient has now presented with vague complaints. She has had malaise and has been feeling unwell. She has had back pain. She has some increase in shortness of breath and some increase in cough as well. However, neither one of these was a prominent complaint upon her presentation. Regardless, the patient on initial presentation did have a CTA chest performed, which shows fairly extensive pulmonary infiltrates. The patient does have raised right hemidiaphragm as well. This finding is also new compared with the beginning of this month. The patient as noted previously was not on oxygen. She has required 2 liters oxygen to maintain O2 saturation in the low 90s since admission. She has been treated with broad spectrum antibiotics including vancomycin, Zosyn and Zithromax. The patient has also been treated with corticosteroids. Overall, she does feel better. The patient also received IV fluids. The patient's chest x-ray today does look worse. The patient's IV fluids have therefore been discontinued. The patient does not report any diarrhea at this time, in fact says that she has not moved her bowels since she was admitted. She does have some abdominal distention. The patient still has significant low back pain. This is still present, although improved compared with when she was admitted. She is currently sitting in a chair. She is in no distress. She does not have swelling of lower extremities or calf pain. The patient has had a high-grade fever up to 38.3 yesterday, which is trending down now. She answered to the negative for 12 questions for review of systems, except as mentioned above. PAST MEDICAL HISTORY: At least 2 episodes of C. difficile colitis last year, [place] [address] CONSULTATION Name: CHAYO PRESTON Room: [address] IN [facility]#: [id number] Admission: 08/20/17 Attend Phys: Izzy Aldana MD Discharge: Date of : 45 Report #: [id number] peripheral vascular disease, COPD but on clinical grounds I do not have previous PFTs available, low back pain, sciatica, thrush, vaginitis. I do not have a previous echo available either. The patient did have a stress test performed last year, which is reported to show normal left ventricular function. Hernia repair x 2, gallbladder surgery, tubal ligation, appendectomy, bypass in the left leg for DVT, 2 Stents in the right leg SOCIAL HISTORY: The patient was a smoker up to a pack a day for several decades, discontinued about a year ago. No known history of heavy alcohol use or illegal drug use. CURRENT MEDICATIONS: List in [employer] reviewed. HOME MEDICATIONS: List also in [employer] reviewed. ALLERGIES: ASPIRIN, AZITHROMYCIN, TAMIFLU, SULFAMETHOXAZOLE, NSAIDS and ZANAMIVIR are mentioned as allergies. However, I am not certain if the patient in fact is allergic to all of these medications. Other than NSAIDs, the documented reaction to all other is stomach issues. Note that the patient is currently on azithromycin and has not had any adverse reaction which makes it very unlikely that she has any allergy to macrolides. FAMILY HISTORY: Lung cancer. PHYSICAL EXAMINATION: GENERAL: She is alert, awake and oriented, does not appear to be in any distress at this time. VITAL SIGNS: Has a pulse of 88 and blood pressure of 110/47. She is saturating 95%. She is on 2 liters nasal cannula, respiratory rate is 20. She has low-grade fever of 37.3. She did have a high-grade fever yesterday. HEENT: Head is normocephalic and atraumatic. Pupils are equal and reactive. There is no throat erythema. NECK: Does not show raised JVP, asymmetry, mass or lymph nodes. CHEST: Symmetrical expansion on inspection and palpation. On auscultation, breath sounds are decreased at the right lung base. HEART: Regular. There is no murmur. ABDOMEN: Distended but nontender. The patient has some vague tenderness on palpation of lower back. EXTREMITIES: Lower extremities show no edema and no calf tenderness. SKIN: Dry and intact. NEUROLOGICAL: She does move all extremities bilaterally equally and spontaneously with no focal deficit identified. LABORATORY DATA: The patient's CT chest and chest x-rays are reviewed and are also discussed above. Chest x-ray today shows increase in pulmonary vascular congestion in addition to pulmonary infiltrates, raised hemidiaphragm on the [facility] [address] [place] [address] CONSULTATION Name: CHAYO PRESTON Seth Room: [address] IN [facility].#: [id number] Admission: 08/20/17 Attend Phys: Izzy Aldana MD Discharge: Date of : 45 Report #: [id number] right side with distended loops of bowel in the abdomen. CT of chest is as discussed above. The patient's CBC as well as chemistries in [facility] reviewed. Arterial blood gases consistent with acute hypoxemic respiratory failure in [facility] reviewed. Urinalysis in [facility] reviewed. ASSESSMENT AND PLAN: 1. Healthcare-associated pneumonia. I agree with current antibiotic therapy. We will obtain urine for legionella as well as pneumococcal antigens as well. Sputum culture and more labs are also ordered. 2. Chronic obstructive pulmonary disease exacerbation. Remains on Solu-Medrol as well as nebulized bronchodilators. I will continue. I did not make any change at this time. I would like to do a 2D echo as well. 3. Elevated right hemidiaphragm, etiology not fully defined at this time, partly this could be secondary to abdominal distention. Finding is new compared with the beginning of this month. Down the line a sniff test can be considered. We will follow with repeat chest x-ray tomorrow morning. 4. Fluid overload. The patient does appear to be fluid overloaded on the chest x-ray today. Therefore, agree with discontinuing IV fluids. I ordered repeat labs. Based on labs, we will decide as to whether furosemide should be administered today. 5. Back pain/abdominal distention. Had significantly distended loops of bowel noted on the patient's chest x-ray. I will go ahead and do a flat plate of the abdomen. Low back pain may be due to intra-abdominal etiology. If the patient's low back pain persists, then suggest considering CT of the abdomen and pelvis with oral contrast. 6. History of deep venous thrombosis. She is on prophylaxis. Further discussion as above. 7. History of Clostridium difficile colitis. The patient has had 2 episodes last year. She has also received broad spectrum antibiotics recently as well and does appear to need them now. She is high risk for recurrence. Therefore, in addition to increasing Lactinex to t.i.d., I also ordered oral vancomycin in a prophylactic dose. Thanks for this consultation. <ELECTRONICALLY SIGNED> By: Alejandro Mayo MD 08/23/17 1342 1419 [id number] Mayo MD /nt
[2017-08-23 16:00] VITALS: BP 128/52
--- NOTE | 2017-08-23 18:41 | NUR ---
ALERT AND ORIENTED X4. FORGETFUL AT TIMES. IV IS PATENT AND INFUSING AN ANTIBIOTIC AT THIS TIME. PAIN BEING MANGED WITH SCHEDULED TRAMADOL. ATTENDED THERAPIES THIS SHIFT. UP WITH STAND BY ASSIST WITH WALKER AND GAIT BELT TO THE BATHROOM. VSS ON ROOM AIR. HOURLY ROUNDS HAVE BEEN MAINTAINED THROUGHOUT SHIFT. CALL LIGHT IS WITHIN REACH. NURSING WILL CONTINUE TO MONITOR.
[2017-08-23 21:30] VITALS: BP 135/46
[2017-08-24 04:42] LABS: CALCIUM 7.7 mg/dL (8.5-10.1); CREATININE 1.3 mg/dL (0.6-1.3); MAGNESIUM 2.7 mg/dL (1.8-2.4); POTASSIUM 3.6 mmol/L (3.5-5.1)
[2017-08-24 04:59] LABS: HEMATOCRIT 25.1 % (37.0-47.0); HEMOGLOBIN 8.8 gm/dL (12.0-15.0); MCH 32.9 pg (26.0-34.0); MCHC 34.8 g/dL (28.0-37.0); MCV 94.6 fL (80.0-100.0); MPV 6.6 fl. (7.2-11.1); RBC 2.66 mil/uL (4.20-5.00); RDW-CV 16.5 % (10.5-14.5); WBC 15.7 thou/uL (4.0-11.0)
[2017-08-24 16:00] VITALS: BP 136/53
--- NOTE | 2017-08-24 17:38 | NUR ---
ALERT AND ORIENTED X4. UP WITH STAND BY ASSIST IN ROOM. IV IS PATENT AND SALINE LOCKED. PAIN BEING MANAGED WITH SCHEDULED TRAMADOL. DENIES NAUSEA. ATTENDED PHYSICAL AND OCCUPATIONAL THERAPY THIS SHIFT. VSS ON ROOM AIR. HOURLY ROUNDS HAVE BEEN MAINTAINED THROUGHOUT SHIFT. CALL LIGHT IS WITHIN REACH. NURSING WILL CONTINUE TO MONITOR.
[2017-08-24 20:45] VITALS: BP 138/52
[2017-08-25 04:11] LABS: ABSOLUTE LYMPHOCYTES 1.4 thou/uL (0.8-5.3); ABSOLUTE MONOCYTES 0.4 thou/uL (0.0-1.2); BASOPHILS 0.1 %; HEMATOCRIT 25.8 % (37.0-47.0); HEMOGLOBIN 8.6 gm/dL (12.0-15.0); LYMPHOCYTES 11.7 %; MCH 31.7 pg (26.0-34.0); MCHC 33.5 g/dL (28.0-37.0); MCV 94.7 fL (80.0-100.0); MONOCYTES 3.5 %; MPV 6.6 fl. (7.2-11.1); NUCLEATED RBCS 0 /100WBC; PLATELET COUNT* 339 thou/uL (150-400); POLYS 84.7 %; RBC 2.72 mil/uL (4.20-5.00); RDW-CV 16.8 % (10.5-14.5); WBC 11.8 thou/uL (4.0-11.0)
[2017-08-25 04:31] LABS: CREATININE 1.2 mg/dL (0.6-1.3); MAGNESIUM 2.5 mg/dL (1.8-2.4); POTASSIUM 3.9 mmol/L (3.5-5.1)
--- NOTE | 2017-08-25 04:58 | NUR ---
PATIENT REMAINED ALERT AND ORIENTED THROUHOUT SHIFT. VITAL SIGNS STABLE ON ROOM AIR. IV PATENT IN THE LEFT FOREARM SALINE LOCKED. PAIN MANAGED WITH PO PAIN MEDICATION SCHEDULED. DENIES NAUSEA OR VOMITTING THROUGHOUT SHIFT. REMAINS UP STAND BY ASSIST IN ROOM. HOURLY ROUNDS HAVE BEEN MAINTAINED. BED IN LOW POSITION. CALL LIGHT WITHIN REACH. NURSING WILL CONTINUE TO MONITOR.
[2017-08-25 08:00] VITALS: BP 139/49
[2017-08-25 16:00] VITALS: BP 132/41
--- NOTE | 2017-08-25 17:44 | NUR ---
ALERT AND ORIENTED X4. UP STAND BY ASSIST IN ROOM. IV IS PATENT AND SALINE LOCKED. PAIN BEING MANAGED WITH SCHEDULED TRAMADOL. DENIES NAUSEA. TOLERATING REGULAR DIET. VSS ON ROOM AIR. HOURLY ROUNDS HAVE BEEN MAINTAINED THROUGOUT SHIFT. CALL LIGHT IS WITHIN REACH. NURSING WILL CONTINUE TO MONITOR.
--- NOTE | 2017-08-26 05:15 | NUR ---
PATIENT ALERT AND ORIENTED THROUGHOUT SHIFT. VITAL SIGNS STABLE ON ROOM AIR. PAIN MANAGED WITH PO SCHEDULED TRAMADOL. DENIES NAUSEA AT THIS TIME. IV IN LEFT FOREARM, PATENT AND SALINE LOCKED. PATIENT REPOSITIONING SELF. HOURLY ROUNDING HAS BEEN MAINTAINED. FALL PRECAUTIONS IN PLACE, BED ALARM SET. CALL LIGHT WITHIN REACH. NURSING WILL CONTINUE TO MONITOR.
[2017-08-26 08:00] VITALS: BP 132/51
[2017-08-26 15:23] VITALS: BP 132/41
[2017-08-26] MEDS ORDERED: FLEXERIL PO (15:35)
[2017-08-26] MEDS ORDERED: HYDROCODON-ACE1 EAC7 PO (15:35)
--- NOTE | 2017-08-26 15:37 | NUR ---
CM SPOKE TO THE PATIENT TO DISCUSS DISCHARGE PLANNNING NEEDS AND HH AT D/C. PATIENT INFOMRS THAT SHE DOES NOT WANT HH AND DOES NOT NEED IT. CM INFORMED PATIENT AND DTR THAT IF SHE CHANGED HER MIND THAT SHE COULD CONTACT CM AND HH COULD BE SETUP AT THAT TIME. CM WILL REMAIN AVAILABLE TO ASSIST AND FOLLOW NEEDED.
[2017-08-26] MEDS ORDERED: VANCOCIN 125 M125 M1 PO (15:38)
[2017-08-26] MEDS ORDERED: AUGMENTIN 875-1 EACH PO (16:05)
[2017-08-26] MEDS ORDERED: PREDNISONE 10 M10 MG PO (16:09)
--- NOTE | 2017-08-26 16:25 | NUR ---
PATIENT DC TO HOME REF H/H ALL DC INSTRUCTIONS GIVEN AND ACKNOWLEDGED AND SIGNED COPIES GIVEN IV REMOVED PERSONAL BELONGINGS RETURNED ASSISTED OUT VIA WC TO WAITING CAR
== END 2017-08-26 16:24 | disposition home or self-care (01) | DRG 177 ==
LOC: M.ERS 10:20 → M.TBA-ER 13:34 → M.2W 13:34 → M.ORTHSURG 08-22 17:44
PROVIDERS: Internal Medicine Critical Care Medicine; Personal Emergency Response Attendant; ADMIT Internal Medicine
DX: J69.0 Pneumonitis due to inhalation of food and vomit (principal); J96.00 Acute respiratory failure, unspecified whether with hypoxia or hypercapnia; R65.10 Systemic inflammatory response syndrome (SIRS) of non-infectious origin without acute organ dysfunction; J44.1 Chronic obstructive pulmonary disease with (acute) exacerbation; E46 Unspecified protein-calorie malnutrition; I73.9 Peripheral vascular disease, unspecified; E87.70 Fluid overload, unspecified; K59.00 Constipation, unspecified; F17.210 Nicotine dependence, cigarettes, uncomplicated; E61.1 Iron deficiency; Z68.21 Body mass index [BMI] 21.0-21.9, adult; Z86.718 Personal history of other venous thrombosis and embolism; Z79.899 Other long term (current) drug therapy; Z88.6 Allergy status to analgesic agent; Z80.1 Family history of malignant neoplasm of trachea, bronchus and lung; Z88.1 Allergy status to other antibiotic agents; Z88.8 Allergy status to other drugs, medicaments and biological substances

== ENCOUNTER → 2017-11-19 | Outpatient (CLI) | payer MEDICARE ==
[~2017-11-19] MED LIST changes: +AMOXICILLIN875 MG PO; +BENZONATATE200 MG PO; +CEFDINIR300 MG PO; +DIFLUCAN200 MG PO; +FLEXERIL PO; +FLORANEX TABLE1 EACH PO; +HYDROCODON-ACE1 EAC7 PO; +KEFLEX250 MG; +MUCINEX600 MG PO; +OXYCONTIN10 M1 PO; +PROBIOTIC1 EAC1 PO; +REQUIP1 MG PO; +TYLENOL325 M1 PO
== END ==
LOC: M.WC 04:53
DX: I70.244 Atherosclerosis of native arteries of left leg with ulceration of heel and midfoot (principal); L97.421 Non-pressure chronic ulcer of left heel and midfoot limited to breakdown of skin; B35.8 Other dermatophytoses; J44.9 Chronic obstructive pulmonary disease, unspecified; Z87.891 Personal history of nicotine dependence

== ENCOUNTER → 2017-11-26 | Outpatient (CLI) | payer MEDICARE | LOC: M.WC 04:56 | DX: I70.244 Atherosclerosis of native arteries of left leg with ulceration of heel and midfoot (principal); L97.421 Non-pressure chronic ulcer of left heel and midfoot limited to breakdown of skin; B35.8 Other dermatophytoses; J44.9 Chronic obstructive pulmonary disease, unspecified; Z87.891 Personal history of nicotine dependence ==

== ENCOUNTER → 2017-12-03 | Outpatient (CLI) | payer MEDICARE | LOC: M.WC 03:26 | DX: I70.244 Atherosclerosis of native arteries of left leg with ulceration of heel and midfoot (principal); L97.421 Non-pressure chronic ulcer of left heel and midfoot limited to breakdown of skin; B35.8 Other dermatophytoses; J44.9 Chronic obstructive pulmonary disease, unspecified; Z87.891 Personal history of nicotine dependence ==

== ENCOUNTER 2017-12-04 17:39 | Inpatient (IN) | payer MEDICARE ==
[~2017-12-04] VITALS: Ht 152.4 cm; Wt 49.9 kg
[~2017-12-04 17:39] MED LIST changes: -AMOXICILLIN875 MG PO; -BENZONATATE200 MG PO; -CEFDINIR300 MG PO; -DIFLUCAN200 MG PO; -FLORANEX TABLE1 EACH PO; -KEFLEX250 MG; -MUCINEX600 MG PO; -OXYCONTIN10 M1 PO; -PROBIOTIC1 EAC1 PO; -REQUIP1 MG PO; -TYLENOL325 M1 PO
[2017-12-04 17:51] VITALS: BP 178/64
[2017-12-04 18:35] LABS: ABSOLUTE EOSINOPHILS 0.2 thou/uL (0.0-0.7); ABSOLUTE LYMPHOCYTES 2.6 thou/uL (0.8-5.3); ABSOLUTE MONOCYTES 0.6 thou/uL (0.0-1.2); ABSOLUTE NEUTROPHILS 3.7 thou/uL (1.6-8.1); BASOPHILS 0.6 %; EOSINOPHILS 2.3 %; HEMATOCRIT 37.1 % (37.0-47.0); HEMOGLOBIN 12.5 gm/dL (12.0-15.0); LYMPHOCYTES 36.8 %; MCH 33.5 pg (26.0-34.0); MCHC 33.6 g/dL (28.0-37.0); MCV 99.7 fL (80.0-100.0); MONOCYTES 8.3 %; MPV 6.5 fl. (7.2-11.1); NUCLEATED RBCS 0 /100WBC; PLATELET COUNT* 420 thou/uL (150-400); RBC 3.73 mil/uL (4.20-5.00); RDW-CV 14.4 % (10.5-14.5); WBC 7.1 thou/uL (4.0-11.0)
[2017-12-04 18:50] LABS: CREATININE 1.6 mg/dL (0.6-1.3); POTASSIUM 5.6 mmol/L (3.5-5.1)
[2017-12-04 18:58] LABS: ALBUMIN 3.6 g/dL (3.4-5.0); TOTAL BILIRUBIN 0.4 mg/dL (<0.1-1.0); TOTAL PROTEIN 7.6 g/dL (6.4-8.2)
[2017-12-04] MEDS ORDERED: AMOXICILLIN875 MG PO (19:30)
[2017-12-04] MEDS ORDERED: BENZONATATE200 MG PO (19:30)
[2017-12-04 20:24] VITALS: BP 173/59
[2017-12-04 20:40] VITALS: BP 165/58
[2017-12-05] VITALS: BP 137/66
[2017-12-05 04:00] VITALS: BP 125/64
[2017-12-05 08:00] VITALS: BP 139/47
[2017-12-05 12:13] LABS: ABSOLUTE EOSINOPHILS 0.1 thou/uL (0.0-0.7); ABSOLUTE LYMPHOCYTES 2.4 thou/uL (0.8-5.3); ABSOLUTE MONOCYTES 0.7 thou/uL (0.0-1.2); ABSOLUTE NEUTROPHILS 4.9 thou/uL (1.6-8.1); BASOPHILS 0.5 %; EOSINOPHILS 1.6 %; HEMATOCRIT 37.8 % (37.0-47.0); HEMOGLOBIN 12.6 gm/dL (12.0-15.0); LYMPHOCYTES 29.6 %; MCH 33.1 pg (26.0-34.0); MCHC 33.3 g/dL (28.0-37.0); MCV 99.2 fL (80.0-100.0); MONOCYTES 8.1 %; MPV 6.2 fl. (7.2-11.1); NUCLEATED RBCS 0 /100WBC; PLATELET COUNT* 443 thou/uL (150-400); POLYS 60.2 %; RDW-CV 14.3 % (10.5-14.5); WBC 8.1 thou/uL (4.0-11.0)
[2017-12-05 12:27] LABS: CALCIUM 9.3 mg/dL (8.5-10.1); CREATININE 1.5 mg/dL (0.6-1.3); MAGNESIUM 1.7 mg/dL (1.8-2.4); PHOSPHORUS* 3.6 mg/dL (2.5-4.9)
[2017-12-05 12:32] LABS: POTASSIUM 4.6 mmol/L (3.5-5.1)
--- NOTE | 2017-12-05 13:04 | EKG ---
[place] [address] ELECTROCARDIOGRAM REPORT Name: CHAYO PRESTON Room: [address] IN [facility]#: [id number] Admission: 12/04/17 Attend Phys: Vinny Duran MD Discharge: Date of : 45 Report #: [id number] THIS REPORT FOR: //name// [facility] ED Test Date: 2017-12-04 Test Time: 19:56:12 Pat Name: CHAYO PRESTON Department: Room: Gender: Folding Machine Operator: JASMYN Staples : 1945 Requested By: Geraldine Gleason Order Number: [id number] MD: Zachary Burkett Measurements Intervals [place] Rate: 80 P: 54 [place]: 129 QRS: -6 QRSD: 82 T: 59 QT: 384 QTc: 443 Interpretive Statements Sinus rhythm Anteroseptal infarct, old Compared to ECG 07/30/2017 14:48:38 Myocardial infarct finding now present Electronically Signed On 12-05-2017 13:04:33 CDT by Zachary Burkett [email or web address] <ELECTRONICALLY SIGNED> By: Zachary Burkett MD, [facility] 12/05/17 1304 55 55 Zachary Burkett MD, [facility] /EPI
[2017-12-05 16:16] VITALS: BP 130/53
[2017-12-05 20:00] VITALS: BP 105/44
[2017-12-06] VITALS (10 sets, daily range): BP systolic 80–141; BP diastolic 32–57
[2017-12-06 04:52] LABS: ABSOLUTE LYMPHOCYTES 1.7 thou/uL (0.8-5.3); ABSOLUTE MONOCYTES 0.5 thou/uL (0.0-1.2); ABSOLUTE NEUTROPHILS 3.4 thou/uL (1.6-8.1); BASOPHILS 0.2 %; EOSINOPHILS 0.8 %; LYMPHOCYTES 29.4 %; MCH 34.2 pg (26.0-34.0); MCHC 33.8 g/dL (28.0-37.0); MCV 100.9 fL (80.0-100.0); MONOCYTES 8.5 %; MPV 6.4 fl. (7.2-11.1); NUCLEATED RBCS 0 /100WBC; POLYS 61.1 %; RBC 2.88 mil/uL (4.20-5.00); WBC 5.6 thou/uL (4.0-11.0)
[2017-12-06 05:02] LABS: CALCIUM 8.6 mg/dL (8.5-10.1); CREATININE 1.8 mg/dL (0.6-1.3); POTASSIUM 5.3 mmol/L (3.5-5.1)
[2017-12-06 05:19] LABS: HEMOGLOBIN 9.8 gm/dL (12.0-15.0); PLATELET COUNT* 319 thou/uL (150-400)
[2017-12-07] VITALS: BP 101/40
[2017-12-07 03:43] VITALS: BP 108/54
[2017-12-07 04:37] LABS: ABSOLUTE EOSINOPHILS 0.1 thou/uL (0.0-0.7); ABSOLUTE LYMPHOCYTES 1.8 thou/uL (0.8-5.3); ABSOLUTE MONOCYTES 0.6 thou/uL (0.0-1.2); ABSOLUTE NEUTROPHILS 4.8 thou/uL (1.6-8.1); BASOPHILS 0.2 %; EOSINOPHILS 0.9 %; HEMATOCRIT 28.2 % (37.0-47.0); HEMOGLOBIN 9.5 gm/dL (12.0-15.0); LYMPHOCYTES 24.6 %; MCH 33.7 pg (26.0-34.0); MCHC 33.7 g/dL (28.0-37.0); MCV 100.2 fL (80.0-100.0); MONOCYTES 8.4 %; MPV 6.2 fl. (7.2-11.1); NUCLEATED RBCS 0 /100WBC; PLATELET COUNT* 287 thou/uL (150-400); POLYS 65.9 %; RBC 2.82 mil/uL (4.20-5.00); RDW-CV 14.2 % (10.5-14.5); WBC 7.2 thou/uL (4.0-11.0)
[2017-12-07 04:52] LABS: CALCIUM 8.6 mg/dL (8.5-10.1); CREATININE 1.3 mg/dL (0.6-1.3); POTASSIUM 4.8 mmol/L (3.5-5.1)
[2017-12-07 08:00] VITALS: BP 112/58
[2017-12-07 12:00] VITALS: BP 161/43
[2017-12-07 16:40] VITALS: BP 110/52
[2017-12-07 20:00] VITALS: BP 129/49
[2017-12-08] VITALS: BP 125/45
[2017-12-08 04:00] VITALS: BP 117/40
[2017-12-08 11:51] VITALS: BP 111/36
[2017-12-08 15:55] VITALS: BP 157/61
[2017-12-08 20:00] VITALS: BP 125/53
[2017-12-09] VITALS: BP 110/66
[2017-12-09 04:00] VITALS: BP 117/57
[2017-12-09 08:00] VITALS: BP 126/47
[2017-12-09 11:21] VITALS: BP 153/66
[2017-12-09 15:21] VITALS: BP 153/48
[2017-12-09 19:42] VITALS: BP 126/57
[2017-12-10] VITALS: BP 116/62
[2017-12-10 04:00] VITALS: BP 120/68
[2017-12-10 08:00] VITALS: BP 93/42
[2017-12-10 12:22] VITALS: BP 93/48
[2017-12-10] MEDS ORDERED: FLEXERIL PO (14:20)
[2017-12-10] MEDS ORDERED: TRAMADOL 50 MG50 MG PO (14:20)
[2017-12-10] MEDS ORDERED: FLORANEX TABLE1 EACH PO (15:56)
[2017-12-10] MEDS ORDERED: DIFLUCAN200 MG PO (15:58)
[2017-12-10] MEDS ORDERED: MUCINEX600 MG PO (16:04)
[2017-12-10] MEDS ORDERED: REQUIP1 MG PO (16:08)
[2017-12-10] MEDS ORDERED: TYLENOL325 M1 PO (16:13)
[2017-12-10 16:15] VITALS: BP 93/48
[2017-12-10 16:23] VITALS: BP 115/56
== END 2017-12-10 17:00 | DRG 177 ==
LOC: M.ERS 17:39 → M.2W 19:42 → M.TBA-ER 19:42 → M.2W 20:34
PROVIDERS: Internal Medicine; Nurse Practitioner; ADMIT Internal Medicine
DX: J69.0 Pneumonitis due to inhalation of food and vomit (principal); N17.0 Acute kidney failure with tubular necrosis; J44.0 Chronic obstructive pulmonary disease with (acute) lower respiratory infection; E87.5 Hyperkalemia; Z88.6 Allergy status to analgesic agent; Z88.1 Allergy status to other antibiotic agents; Z88.2 Allergy status to sulfonamides; Z88.8 Allergy status to other drugs, medicaments and biological substances; Z90.49 Acquired absence of other specified parts of digestive tract; Z98.42 Cataract extraction status, left eye; Z98.41 Cataract extraction status, right eye; Z87.891 Personal history of nicotine dependence; Z79.2 Long term (current) use of antibiotics; Z79.899 Other long term (current) drug therapy; Z80.1 Family history of malignant neoplasm of trachea, bronchus and lung; Z80.0 Family history of malignant neoplasm of digestive organs

== ENCOUNTER 2018-03-16 11:19 | Inpatient (IN) | payer MEDICARE ==
[~2018-03-16] VITALS: Ht 154.9 cm; Wt 49.9 kg
[~2018-03-16 11:19] MED LIST changes: +AMOXICILLIN875 MG PO; +BENZONATATE200 MG PO; +DIFLUCAN200 MG PO; +FLORANEX TABLE1 EACH PO; +MUCINEX600 MG PO; +REQUIP1 MG PO; +TYLENOL325 M1 PO
[2018-03-16 11:25] VITALS: BP 171/54
[2018-03-16] MEDS ORDERED: OXYCONTIN10 M1 PO (11:31)
[2018-03-16] MEDS ORDERED: PREDNISONE 10 M10 MG PO (11:32)
[2018-03-16] MEDS ORDERED: KEFLEX250 MG (11:32)
[2018-03-16 11:50] LABS: URINE BILIRUBIN NEGATIVE (Negative); URINE BLOOD NEGATIVE (Negative); URINE CLARITY CLEAR; URINE COLOR YELLOW; URINE GLUCOSE-RANDOM NEGATIVE (Negative); URINE KETONES NEGATIVE (Negative); URINE LEUKOCYTES-REFLEX NEGATIVE (Negative); URINE NITRITE-REFLEX NEGATIVE (Negative); URINE PROTEIN TRACE (Negative); URINE UROBILINOGEN 0.2 E.U./dl (0.2-1.0)
[2018-03-16 11:50] LABS: ABSOLUTE EOSINOPHILS 0.2 thou/uL (0.0-0.7); ABSOLUTE LYMPHOCYTES 2.3 thou/uL (0.8-5.3); ABSOLUTE MONOCYTES 0.5 thou/uL (0.0-1.2); ABSOLUTE NEUTROPHILS 2.6 thou/uL (1.6-8.1); BASOPHILS 0.4 %; EOSINOPHILS 2.9 %; HEMATOCRIT 34.9 % (37.0-47.0); HEMOGLOBIN 11.7 gm/dL (12.0-15.0); LYMPHOCYTES 40.9 %; MCH 33.1 pg (26.0-34.0); MCHC 33.6 g/dL (28.0-37.0); MCV 98.5 fL (80.0-100.0); MONOCYTES 9.2 %; MPV 6.7 fl. (7.2-11.1); NUCLEATED RBCS 0 /100WBC; PLATELET COUNT* 369 thou/uL (150-400); POLYS 46.6 %; RBC 3.55 mil/uL (4.20-5.00); RDW-CV 15.5 % (10.5-14.5); WBC 5.6 thou/uL (4.0-11.0)
[2018-03-16 12:17] LABS: ANION GAP 7 mmol/L (7-16); BUN 16 mg/dL (7-18); CALCIUM 9.3 mg/dL (8.5-10.1); CHLORIDE 99 mmol/L (98-107); CO2 30 mmol/L (21-32); CREATININE 1.2 mg/dL (0.6-1.3); GLUCOSE 95 mg/dL (70-99); POTASSIUM 4.8 mmol/L (3.5-5.1); SODIUM 136 mmol/L (136-145)
[2018-03-16 12:21] LABS: APTT 29.1 Seconds (25.0-31.3)
[2018-03-16 12:24] LABS: ALKALINE PHOSPHATASE 92 U/L (46-116); SGOT 23 U/L (15-37); SGPT 15 U/L (30-65); TOTAL BILIRUBIN 0.5 mg/dL (<0.1-1.0); TOTAL PROTEIN 7.7 g/dL (6.4-8.2); TROPONIN-I LEVEL <0.06 ng/mL (<0.06)
[2018-03-16 13:53] LABS: BE -1.3 mmol/L (-2 to +3); HCO3 23.6 mmol/L (22.0-26.0); PCO2 40.5 mmHg (35.0-45.0); PO2 65.8 mmHg (75.0-100.0); pH 7.384 (7.340-7.450)
[2018-03-16 14:36] VITALS: BP 164/47
[2018-03-16 15:00] VITALS: BP 183/79
[2018-03-16 20:00] VITALS: BP 134/51
[2018-03-17] VITALS: BP 99/38
[2018-03-17 04:00] VITALS: BP 106/48
[2018-03-17 08:00] VITALS: BP 113/44
--- NOTE | 2018-03-17 10:00 | EKG ---
[place] [address] ELECTROCARDIOGRAM REPORT Name: CHAYO PRESTON Room: [address] ADM IN .R.#: [id number] Admission: 03/16/18 Attend Phys: Carlos Avila MD Discharge: Date of : 45 Report #: [id number] THIS REPORT FOR: //name// [facility] ED Test Date: 2018-03-16 Test Time: 11:27:41 Pat Name: CHAYO PRESTON Department: Room: [facility] Gender: F Power Builder Developer: Bel GALICIA : 1945 Requested By: Kelly Dasilva Order Number: [id number] MD: Ismael Zhang Measurements Intervals [place] Rate: 76 P: 69 [place]: 132 QRS: 2 QRSD: 103 T: 62 QT: 356 QTc: 401 Interpretive Statements Sinus rhythm Atrial premature complex Low voltage, precordial leads Baseline wander in lead(s) V6 Compared to ECG 12/04/2017 19:56:12 Atrial premature complex(es) now present Electronically Signed On 03-17-2018 9:59:47 CDT by Ismael Zhang [email or web address] <ELECTRONICALLY SIGNED> By: Ismael Zhang MD, FACC 03/17/18 0959 1127 1127 Ismael Zhang MD, FAC /EPI
[2018-03-17 11:49] VITALS: BP 126/45
[2018-03-17 15:44] VITALS: BP 114/47
[2018-03-17 19:40] VITALS: BP 137/49
[2018-03-18] VITALS: BP 116/75
[2018-03-18 04:00] VITALS: BP 127/42
[2018-03-18 05:39] LABS: ABSOLUTE LYMPHOCYTES 1.4 thou/uL (0.8-5.3); ABSOLUTE MONOCYTES 0.4 thou/uL (0.0-1.2); ABSOLUTE NEUTROPHILS 4.7 thou/uL (1.6-8.1); EOSINOPHILS 0.1 %; HEMATOCRIT 28.5 % (37.0-47.0); HEMOGLOBIN 9.8 gm/dL (12.0-15.0); LYMPHOCYTES 21.9 %; MCHC 34.3 g/dL (28.0-37.0); MCV 99.2 fL (80.0-100.0); MONOCYTES 6.4 %; MPV 6.9 fl. (7.2-11.1); NUCLEATED RBCS 0 /100WBC; PLATELET COUNT* 298 thou/uL (150-400); POLYS 71.6 %; RBC 2.87 mil/uL (4.20-5.00); RDW-CV 15.2 % (10.5-14.5); WBC 6.6 thou/uL (4.0-11.0)
[2018-03-18 05:41] LABS: BE 3.3 mmol/L (-2 to +3); HCO3 26.8 mmol/L (22.0-26.0); PCO2 35.7 mmHg (35.0-45.0); PO2 74.6 mmHg (75.0-100.0); pH 7.493 (7.340-7.450)
[2018-03-18 05:59] LABS: ALBUMIN 3.5 g/dL (3.4-5.0); CALCIUM 9.1 mg/dL (8.5-10.1); CREATININE 1.2 mg/dL (0.6-1.3); POTASSIUM 4.8 mmol/L (3.5-5.1); TOTAL BILIRUBIN 0.3 mg/dL (<0.1-1.0); TOTAL PROTEIN 6.7 g/dL (6.4-8.2)
[2018-03-18 07:57] VITALS: BP 139/78
[2018-03-18 12:00] VITALS: BP 138/54
[2018-03-18 16:00] VITALS: BP 132/49
[2018-03-18 20:00] VITALS: BP 124/50
[2018-03-19] VITALS: BP 119/51
[2018-03-19 04:00] VITALS: BP 123/41; BP 126/54
[2018-03-19 08:08] VITALS: BP 119/59
[2018-03-19] MEDS ORDERED: CEFDINIR300 MG PO (10:05)
[2018-03-19] MEDS ORDERED: PROBIOTIC1 EAC1 PO (10:10)
[2018-03-19 10:16] VITALS: BP 119/59
[2018-03-19 11:14] VITALS: BP 131/40
== END 2018-03-19 13:00 | DRG 189 ==
LOC: M.ERS 11:19 → M.TBA-ER 13:19 → M.2W 13:19
PROVIDERS: Internal Medicine; Personal Emergency Response Attendant
DX: J96.20 Acute and chronic respiratory failure, unspecified whether with hypoxia or hypercapnia (principal); J44.1 Chronic obstructive pulmonary disease with (acute) exacerbation; J44.0 Chronic obstructive pulmonary disease with (acute) lower respiratory infection; I10 Essential (primary) hypertension; G89.29 Other chronic pain; M54.9 Dorsalgia, unspecified; I73.9 Peripheral vascular disease, unspecified; J20.9 Acute bronchitis, unspecified; R79.1 Abnormal coagulation profile; Z90.49 Acquired absence of other specified parts of digestive tract; Z98.49 Cataract extraction status, unspecified eye; Z79.899 Other long term (current) drug therapy; Z88.6 Allergy status to analgesic agent; Z88.2 Allergy status to sulfonamides; Z88.8 Allergy status to other drugs, medicaments and biological substances; Z87.891 Personal history of nicotine dependence; Z87.01 Personal history of pneumonia (recurrent)

== ENCOUNTER 2018-05-27 10:48 | Inpatient (IN) | payer MEDICARE ==
[~2018-05-27] VITALS: Ht 154.9 cm; Wt 45.4 kg
[~2018-05-27 10:48] MED LIST changes: +CALCIUM CITRAT1 EAC7 PO; +CEFDINIR300 MG PO; -ELEMENTAL CALC600 MG PO; +KEFLEX250 MG; +OXYCONTIN10 M1 PO; +PROBIOTIC1 EAC1 PO
[2018-05-27 11:05] VITALS: BP 204/78
[2018-05-27 11:05] LABS: URINE BILIRUBIN NEGATIVE (Negative); URINE BLOOD TRACE (Negative); URINE CLARITY CLEAR; URINE COLOR YELLOW; URINE GLUCOSE-RANDOM NEGATIVE (Negative); URINE KETONES NEGATIVE (Negative); URINE LEUKOCYTES-REFLEX NEGATIVE (Negative); URINE NITRITE-REFLEX NEGATIVE (Negative); URINE PROTEIN 2+ (Negative); URINE SPECIFIC GRAVITY 1.015 (1.005-1.030); URINE UROBILINOGEN 0.2 E.U./dl (0.2-1.0)
[2018-05-27] MEDS ORDERED: OXYCODONE-ACET1 EACH PO (11:11)
[2018-05-27 11:32] LABS: ABSOLUTE EOSINOPHILS 0.2 thou/uL (0.0-0.7); ABSOLUTE LYMPHOCYTES 1.7 thou/uL (0.8-5.3); ABSOLUTE MONOCYTES 0.7 thou/uL (0.0-1.2); ABSOLUTE NEUTROPHILS 4.6 thou/uL (1.6-8.1); BASOPHILS 0.3 %; EOSINOPHILS 2.4 %; HEMATOCRIT 36.4 % (37.0-47.0); HEMOGLOBIN 12.2 gm/dL (12.0-15.0); LYMPHOCYTES 23.4 %; MCH 33.2 pg (26.0-34.0); MCHC 33.5 g/dL (28.0-37.0); MONOCYTES 9.7 %; MPV 6.7 fl. (7.2-11.1); NUCLEATED RBCS 0 /100WBC; PLATELET COUNT* 356 thou/uL (150-400); POLYS 64.2 %; RBC 3.67 mil/uL (4.20-5.00); RDW-CV 13.3 % (10.5-14.5); WBC 7.2 thou/uL (4.0-11.0)
[2018-05-27 11:51] LABS: ANION GAP 10 mmol/L (7-16); BUN 18 mg/dL (7-18); CALCIUM 9.6 mg/dL (8.5-10.1); CHLORIDE 95 mmol/L (98-107); CO2 27 mmol/L (21-32); CREATININE 1.3 mg/dL (0.6-1.3); GLUCOSE 93 mg/dL (70-99); POTASSIUM 3.9 mmol/L (3.5-5.1); SODIUM 132 mmol/L (136-145)
[2018-05-27 11:56] LABS: ALKALINE PHOSPHATASE 99 U/L (46-116); LIPASE 67 U/L (73-393); SGOT 22 U/L (15-37); SGPT 14 U/L (30-65); TOTAL BILIRUBIN 0.5 mg/dL (<0.1-1.0); TOTAL PROTEIN 7.7 g/dL (6.4-8.2); TROPONIN-I LEVEL <0.06 ng/mL (<0.06)
[2018-05-27 15:30] VITALS: BP 160/47
[2018-05-27 15:45] VITALS: BP 166/99
[2018-05-27 16:00] VITALS: BP 156/86
[2018-05-27 16:15] VITALS: BP 150/55
[2018-05-27 20:00] VITALS: BP 136/51
[2018-05-28 04:42] LABS: ABSOLUTE EOSINOPHILS 0.2 thou/uL (0.0-0.7); ABSOLUTE LYMPHOCYTES 1.7 thou/uL (0.8-5.3); ABSOLUTE MONOCYTES 0.6 thou/uL (0.0-1.2); ABSOLUTE NEUTROPHILS 3.3 thou/uL (1.6-8.1); BASOPHILS 0.3 %; EOSINOPHILS 2.9 %; HEMATOCRIT 28.7 % (37.0-47.0); LYMPHOCYTES 29.5 %; MCH 34.1 pg (26.0-34.0); MCHC 34.1 g/dL (28.0-37.0); MCV 99.9 fL (80.0-100.0); MONOCYTES 10.9 %; MPV 6.8 fl. (7.2-11.1); NUCLEATED RBCS 0 /100WBC; PLATELET COUNT* 291 thou/uL (150-400); POLYS 56.4 %; RBC 2.87 mil/uL (4.20-5.00); RDW-CV 13.5 % (10.5-14.5); WBC 5.8 thou/uL (4.0-11.0)
[2018-05-28 04:55] LABS: CALCIUM 8.2 mg/dL (8.5-10.1); CREATININE 1.3 mg/dL (0.6-1.3); POTASSIUM 4.4 mmol/L (3.5-5.1)
[2018-05-28 05:09] LABS: HEMOGLOBIN 9.8 gm/dL (12.0-15.0)
[2018-05-28 07:40] VITALS: BP 135/57
--- NOTE | 2018-05-28 13:48 | EKG ---
[place] [address] ELECTROCARDIOGRAM REPORT Name: CHAYO PRESTON Room: [address] ADM IN .R.#: [id number] Admission: 05/27/18 Attend Phys: Vinny Duran MD Discharge: Date of : 45 Report #: [id number] THIS REPORT FOR: //name// [facility] ED Test Date: 2018-05-27 Test Time: 11:22:32 Pat Name: CHAYO PRESTON Department: Room: [facility] Gender: F Delinquent Account Clerk: [facility] : 1945 Requested By: Yarelis Gee Order Number: [id number] MD: Ismael Zhang Measurements Intervals [place] Rate: 84 P: 40 [place]: 142 QRS: -7 QRSD: 76 T: 53 QT: 354 QTc: 419 Interpretive Statements Sinus rhythm Inferior infarct, old Compared to ECG 03/16/2018 11:27:41 Atrial premature complex(es) no longer present Electronically Signed On 05-28-2018 13:47:58 IN HOME CAREGIVER by Ismael Zhang [email or web address] <ELECTRONICALLY SIGNED> By: Ismael Zhang MD, [facility] 05/28/18 1347 1122 1122 Ismael Zhang MD, [facility] /EPI
[2018-05-28 15:00] VITALS: BP 116/50
[2018-05-28 15:00] LABS: SQUAMOUS 4-10 Moderate /LPF (0-3)
[2018-05-28 15:02] LABS: TRANSITIONAL EPITHEL CELL 0-3 Few /LPF (None Seen)
[2018-05-28 15:04] LABS: URINE RBC 0-2 Rare /HPF (0-2); URINE WBC-REFLEX 0-5 Rare /HPF (0-5)
[2018-05-28 15:05] LABS: BACTERIA-REFLEX 1-9 Few /HPF (None Seen); CASTS None Seen /LPF (None Seen); MUCUS 0-3 Light strn/LPF (None Seen)
[2018-05-28 15:06] LABS: CRYSTALS None Seen /LPF (None Seen)
[2018-05-29] VITALS: BP 144/53
[2018-05-29 00:42] VITALS: BP 116/50
[2018-05-29 04:21] LABS: ABSOLUTE EOSINOPHILS 0.1 thou/uL (0.0-0.7); ABSOLUTE LYMPHOCYTES 1.3 thou/uL (0.8-5.3); ABSOLUTE MONOCYTES 0.6 thou/uL (0.0-1.2); ABSOLUTE NEUTROPHILS 3.3 thou/uL (1.6-8.1); BASOPHILS 0.3 %; HEMOGLOBIN 9.8 gm/dL (12.0-15.0); LYMPHOCYTES 23.9 %; MCH 33.8 pg (26.0-34.0); MCHC 33.7 g/dL (28.0-37.0); MCV 100.2 fL (80.0-100.0); MONOCYTES 11.8 %; MPV 6.5 fl. (7.2-11.1); NUCLEATED RBCS 0 /100WBC; PLATELET COUNT* 290 thou/uL (150-400); RBC 2.89 mil/uL (4.20-5.00); RDW-CV 13.2 % (10.5-14.5); WBC 5.4 thou/uL (4.0-11.0)
[2018-05-29 04:59] LABS: CALCIUM 7.8 mg/dL (8.5-10.1); CREATININE 1.1 mg/dL (0.6-1.3); POTASSIUM 4.2 mmol/L (3.5-5.1)
[2018-05-29 08:25] VITALS: BP 155/50
[2018-05-29 11:05] VITALS: BP 116/50
--- NOTE | 2018-05-29 14:51 | CON ---
[address] [address] CONSULTATION Name: CHAYO PRESTON Room: [address] IN .R.#: [id number] Admission: 05/27/18 Attend Phys: Spring Duran MD Discharge: Date of : 45 Report #: [id number] THIS REPORT FOR: //name// CC: SPRING Ryder DATE OF SERVICE: 05/28/2018 REQUESTING PHYSICIAN: Dr. Spring Duran. PRIMARY CARE PHYSICIAN: Dr. Luca Ryder. REASON FOR CONSULTATION: Lower abdominal pain, history of constipation, change in bowel habits and possible ileus. HISTORY OF PRESENT ILLNESS: This is a 72-year-old female who is well known to us as we had seen her back in 04/2017. At that time, the patient was seen for constipation and anemia. The patient continues to be anemic and her iron study reveals iron-deficiency anemia with hemoglobin around 9. She denies any hematochezia or melena. She also has history of C. diff infections in the past. She presented to the hospital after 2 weeks of lower abdominal pain and since admission, she was found to have dilatation of her distal small bowel, which may hint obstruction versus ileus. She currently has a soft abdomen and reports that she passes gas from below. She also has been able to tolerate liquid diet. PAST MEDICAL HISTORY: Significant for history of C. diff; hypothyroidism; neuropathy; gallbladder disease, status post cholecystectomy; history of chronic anticoagulation therapy; tubal ligation; history of femoral stenting; DVT, hypertension and peripheral vascular disease. ALLERGIES: SIGNIFICANT FOR SULFA, NONSTEROIDALS, ZANAMIVIR, ERYTHROMYCIN, AND ASPIRIN. SOCIAL HISTORY: The patient lives at home with her daughter. She has long history of tobaccoism, but denies alcohol use. FAMILY HISTORY: Noncontributory. PHYSICAL EXAMINATION: VITAL SIGNS: Reveals blood pressure of 135/57, respirations 16, pulse 69 and temperature 98.1. LUNGS: Clear. CARDIOVASCULAR: Regular. ABDOMEN: Soft. Mildly tender to palpation [place] [address] CONSULTATION Name: MOHANCHAYO Room: [address]#: [id number] Admission: 05/27/18 Attend Phys: Spring Duran MD Discharge: Date of : 45 Report #: [id number] sounds are positive. NEUROLOGIC: The patient is alert, oriented x 3. LABORATORY DATA: Labs revealed sodium of 140, potassium 4.4, BUN is 16, creatinine 1.3 and glucose 53. AST is 22, ALT 14, alkaline phosphatase 99 and total bilirubin is 0.5. Iron saturation is 15. Serum iron is 24. WBC is 5.8 with hemoglobin of 9.8 and platelets of 291,000. IMAGING: CT of abdomen and pelvis was obtained, which suggested the distal small-bowel obstruction versus diffuse small-bowel ileus. ASSESSMENT AND PLAN: The patient with lower abdominal pain for 2 weeks, anemia of iron deficiency and abnormal CT. We will consider a colonoscopy tomorrow and prep her today for the same. I will also obtain sed rate and CRP. <ELECTRONICALLY SIGNED> By: Ange Dailey MD 05/29/18 1451 1217 1351Ange Dailey MD /nt
[2018-05-29 15:20] VITALS: BP 110/54
[2018-05-29 22:00] VITALS: BP 131/71
[2018-05-30 08:00] VITALS: BP 113/43
[2018-05-30 11:59] VITALS: BP 113/43
== END 2018-05-30 14:09 | disposition home or self-care (01) | DRG 372 ==
LOC: M.ERS 10:48 → M.TBA-ER 13:47 → M.3W 13:47
PROVIDERS: Nurse Practitioner Family; ADMIT Internal Medicine
PROC: 0DJD8ZZ Inspection of Lower Intestinal Tract, Via Natural or Artificial Opening Endoscopic (ICD-10-PCS; principal; 2018-05-29)
DX: A04.9 Bacterial intestinal infection, unspecified (principal); K56.609 Unspecified intestinal obstruction, unspecified as to partial versus complete obstruction; E87.1 Hypo-osmolality and hyponatremia; R65.10 Systemic inflammatory response syndrome (SIRS) of non-infectious origin without acute organ dysfunction; F11.20 Opioid dependence, uncomplicated; J44.9 Chronic obstructive pulmonary disease, unspecified; I10 Essential (primary) hypertension; K57.30 Diverticulosis of large intestine without perforation or abscess without bleeding; E03.9 Hypothyroidism, unspecified; I73.9 Peripheral vascular disease, unspecified; G62.9 Polyneuropathy, unspecified; D50.9 Iron deficiency anemia, unspecified; G89.29 Other chronic pain; K64.4 Residual hemorrhoidal skin tags; K64.8 Other hemorrhoids; Z90.49 Acquired absence of other specified parts of digestive tract; Z86.718 Personal history of other venous thrombosis and embolism; Z98.49 Cataract extraction status, unspecified eye; Z88.6 Allergy status to analgesic agent; Z88.1 Allergy status to other antibiotic agents; Z88.2 Allergy status to sulfonamides; Z88.8 Allergy status to other drugs, medicaments and biological substances; Z79.01 Long term (current) use of anticoagulants; Z95.820 Peripheral vascular angioplasty status with implants and grafts; Z80.1 Family history of malignant neoplasm of trachea, bronchus and lung; Z87.891 Personal history of nicotine dependence; Z79.899 Other long term (current) drug therapy; Z28.21 Immunization not carried out because of patient refusal

== ENCOUNTER 2018-06-22 10:51 | Inpatient (IN) | payer MEDICARE ==
[~2018-06-22] VITALS: Ht 149.9 cm; Wt 49.0 kg
[~2018-06-22 10:51] MED LIST changes: +OXYCODONE-ACET1 EACH PO
[2018-06-22 10:59] VITALS: BP 194/72
[2018-06-22 11:46] LABS: ABSOLUTE EOSINOPHILS 0.3 thou/uL (0.0-0.7); ABSOLUTE LYMPHOCYTES 2.2 thou/uL (0.8-5.3); ABSOLUTE MONOCYTES 0.9 thou/uL (0.0-1.2); ABSOLUTE NEUTROPHILS 4.2 thou/uL (1.6-8.1); BASOPHILS 0.5 %; EOSINOPHILS 4.1 %; HEMATOCRIT 32.1 % (37.0-47.0); LYMPHOCYTES 28.5 %; MCH 33.2 pg (26.0-34.0); MCHC 34.2 g/dL (28.0-37.0); MCV 97.1 fL (80.0-100.0); MONOCYTES 11.7 %; MPV 6.6 fl. (7.2-11.1); NUCLEATED RBCS 0 /100WBC; PLATELET COUNT* 365 thou/uL (150-400); POLYS 55.2 %; RDW-CV 13.1 % (10.5-14.5); WBC 7.6 thou/uL (4.0-11.0)
[2018-06-22 11:53] LABS: APTT 28.9 Seconds (25.0-31.3); PROTIME 10.4 Seconds (9.20-11.50)
[2018-06-22 11:54] LABS: ANION GAP 5 mmol/L (7-16); BUN 19 mg/dL (7-18); CALCIUM 9.7 mg/dL (8.5-10.1); CHLORIDE 93 mmol/L (98-107); CO2 30 mmol/L (21-32); CREATININE 1.3 mg/dL (0.6-1.3); GLUCOSE 90 mg/dL (70-99); POTASSIUM 4.8 mmol/L (3.5-5.1); SODIUM 128 mmol/L (136-145)
[2018-06-22 11:54] LABS: URINE BILIRUBIN NEGATIVE (Negative); URINE BLOOD NEGATIVE (Negative); URINE CLARITY CLEAR; URINE COLOR YELLOW; URINE GLUCOSE-RANDOM NEGATIVE (Negative); URINE KETONES NEGATIVE (Negative); URINE LEUKOCYTES-REFLEX NEGATIVE (Negative); URINE NITRITE-REFLEX NEGATIVE (Negative); URINE PROTEIN NEGATIVE (Negative); URINE UROBILINOGEN 0.2 E.U./dl (0.2-1.0)
--- NOTE | 2018-06-22 11:57 | NUR ---
LEFT JUGULAR IV [address] RENDON
[2018-06-22 12:05] LABS: ALBUMIN 3.3 g/dL (3.4-5.0); ALKALINE PHOSPHATASE 98 U/L (46-116); NT-PRO BRAIN NAT PEPTIDE 228 pg/mL (<300); SGOT 24 U/L (15-37); SGPT 14 U/L (30-65); TOTAL BILIRUBIN 0.3 mg/dL (<0.1-1.0); TOTAL PROTEIN 7.1 g/dL (6.4-8.2); TROPONIN-I LEVEL <0.06 ng/mL (<0.06)
[2018-06-22 17:25] VITALS: BP 175/88
[2018-06-22 19:35] VITALS: BP 172/70
--- NOTE | 2018-06-22 20:14 | NUR ---
I ACCEPTED THE PATIENT AN ADMISSION FROM THE ED AT 1720. SHE IS ALERT AND ORIENTED X4 AND PAIN IS DENIED. SHE FEELS OCCASSIONAL NAUSEA. BED IS IN THE LOW LOCKED POSITION AND CALL LIGHT IS IN REACH. HOURLY ROUNDING IS COMPLETED AND PATIENT NEEDS ARE MET. ADMISSION IS COMPLETED. FLUIDS ARE INFUSING. MEDS WERE REFUSED SINCE SHE SAID SHE HAD THEM AT HOME THIS MORNING. WILL CONTINE TO MONITOR.
[2018-06-22 22:00] VITALS: BP 150/46
[2018-06-22 22:02] VITALS: BP 145/61
[2018-06-22 22:04] VITALS: BP 151/67
--- NOTE | 2018-06-23 04:05 | NUR ---
ASSUMED CARE OF PT AT 1900. PT IS ALERT AND ORIENTED. VSS. PERRLA. PT IS REPORTING CRAMPS IN HER LEGS. PT RECIEVED TYLENOL FOR PAIN. PT IS IN SINUS RYTHM ON THE TELEMETRY. PT IS RESTING COMFORTABLY IN BED. RESPIRATIONS ARE EVEN AND NONLABORED. WILL CONTINUE TO MONITOR PT.
[2018-06-23 04:25] LABS: HEMATOCRIT 34.3 % (37.0-47.0); HEMOGLOBIN 11.4 gm/dL (12.0-15.0); MCHC 33.4 g/dL (28.0-37.0); MCV 98.8 fL (80.0-100.0); MPV 6.9 fl. (7.2-11.1); RBC 3.47 mil/uL (4.20-5.00); RDW-CV 13.3 % (10.5-14.5); WBC 6.1 thou/uL (4.0-11.0)
[2018-06-23 05:05] LABS: CALCIUM 9.3 mg/dL (8.5-10.1); CREATININE 1.5 mg/dL (0.6-1.3); MAGNESIUM 1.7 mg/dL (1.8-2.4)
[2018-06-23 08:01] VITALS: BP 115/44
--- NOTE | 2018-06-23 10:09 | EKG ---
[place] [address] ELECTROCARDIOGRAM REPORT Name: CHAYO PRESTON Room: [address] ADM IN .R.#: [id number] Admission: 06/22/18 Attend Phys: Shayne Jansen MD Discharge: Date of : 45 Report #: [id number] THIS REPORT FOR: //name// [facility] ED Test Date: 2018-06-22 Test Time: 11:30:45 Pat Name: CHAYO PRESTON Department: Room: [facility] Gender: F Line Service Person: COREY : 1945 Requested By: Tj Garcia Order Number: [id number] MD: Ismael Zhang Measurements Intervals [place] Rate: 82 P: 75 [place]: 145 QRS: 3 QRSD: 100 T: 41 QT: 370 QTc: 432 Interpretive Statements Sinus rhythm septal q waves Artifact in lead(s) III,aVR,aVL,aVF,V1,V2,V3,V4,V5,V6 Compared to ECG 05/27/2018 11:22:32 no change Electronically Signed On 06-23-2018 10:09:25 ENGRAVINGS POLISHER by Ismael Zhang [email or web address] <ELECTRONICALLY SIGNED> By: Ismael Zhang MD, FAC 06/23/18 1009 1130 1130 Ismael Zhang MD, FAC /EPI
--- NOTE | 2018-06-23 12:27 | NUR ---
SW met with pt and pt and pt dtr to complete initial assessment, introduce self, and SW role. Pt alert, oriented, pleasant. Pt lives at home with her and dtr. Pt has history of SNF at [facility] and SW mentioned recommendations for pt to possible dc to SNF when medically ready. Pt agreeable and said that she feels weak and would benefit from therapies. Pt preference continues to be [facility]. SW to continue to follow to assist with safe dc planning.
[2018-06-23 15:16] VITALS: BP 128/56
--- NOTE | 2018-06-23 18:01 | NUR ---
PT UP WITH SBA TO BATHROOM, UP IN CHAIR FOR MEALS. PT C/O CRAMPING PAIN IN LEGS THAT IS RELIEVED BY ORDERED PAIN MED. NO OTHER C/O. PT ABLE TO MAKE NEEDS KNOWN, CALL LIGHT IN REACH
[2018-06-23 20:00] VITALS: BP 115/36
--- NOTE | 2018-06-23 20:00 | NUR ---
RECEIVED REPORT AND ASSUMED CARE OF PT, ASSESSMENT COMPLETED. PT ASSISTED TO BR, GAIT STEADY. RA SAT 88%. PT ABLE TO TAKE DEEP BREATHS AND SAT INCREASED TO 94%. TELEMETRY ON SHOWING SR. WILL CONT TO MONITOR AND ASSIST NEEDED.
[2018-06-24 01:06] VITALS: BP 123/59
--- NOTE | 2018-06-24 02:00 | NUR ---
PT VERY ANXIOUS AND RESTLESS. O2 ON AT 2L/NC FOR RA SAT OF 89%. C/O CONSTANT LT LEG MUSCLE CRAMPS, HS PAIN MEDS GIVEN EARLIER. HEATING PAD OBTAINED AND APPLIED TO LT LEG. ASSISTED TO BR WITH WALKER, WHILE REACHING FOR PAPER TOWEL, WALKER FELL AND HIT LT GREAT TOE. PT C/O PAIN BUT NO INJURY NOTED. REASSURANCE GIVEN.
[2018-06-24 04:00] VITALS: BP 120/44
[2018-06-24 04:40] LABS: HEMATOCRIT 27.5 % (37.0-47.0); MCH 32.8 pg (26.0-34.0); MCHC 33.2 g/dL (28.0-37.0); MCV 98.8 fL (80.0-100.0); MPV 6.9 fl. (7.2-11.1); RBC 2.78 mil/uL (4.20-5.00); RDW-CV 13.7 % (10.5-14.5); WBC 19.6 thou/uL (4.0-11.0)
[2018-06-24 04:52] LABS: CALCIUM 8.4 mg/dL (8.5-10.1); CREATININE 1.4 mg/dL (0.6-1.3); MAGNESIUM 1.3 mg/dL (1.8-2.4); POTASSIUM 4.7 mmol/L (3.5-5.1)
[2018-06-24 04:53] LABS: HEMOGLOBIN 9.1 gm/dL (12.0-15.0)
--- NOTE | 2018-06-24 05:41 | NUR ---
REMAINS AWAKE ALL NIGHT. PT NO LONGER C/O LT LEG CRAMPING, NOW C/O LT GREAT TOE PAIN. NO EDEMA NOTED BUT SM AMT OF ECCHYMOSIS NOTED. PT STATES TOO PAINFUL TO BEAR WEIGHT OR TOUCH. MOANING AND CALLING OUT. STATES PAIN IS A 10, IMMEDIATELY CALMED DOWN WITH TYLENOL AND NEUROTIN GIVEN. ASSISTED TO BR AND BSC FREQ TONIGHT. TELEMETRY ON SHOWING SR. HS GOALS NOT ACHIEVED TONIGHT OF REST AND SAFETY. IN ROOM FREQ SO ROUNDING OCCURED MORE THAN HOURLY.
[2018-06-24 08:05] VITALS: BP 166/40
--- NOTE | 2018-06-24 11:58 | NUR ---
ALESHA prepared referral for recommendation of SNF at dc and faxed referral to another option for pt of [facility] and spoke with Ellen in admissions who also met with pt. [facility] or [facility] at dc; SW to continue to follow to assist with safe dc planning and finalizing placement.
[2018-06-24 16:13] VITALS: BP 122/46
--- NOTE | 2018-06-24 17:21 | NUR ---
PT SOMEWHAT PROGRESSING TOWARDS GOALS THIS SHIFT. NOTED THAT IT IS DIFFICULT TO MANAGE PAIN. PT HAS MULTIPLE COMPLAINTS. ATTEMPTS MADE TO MEET PT'S NEEDS. NO OTHER CONCERNS AT THIS TIME. CLWR WCTM.
[2018-06-24 21:50] VITALS: BP 122/46
[2018-06-25] VITALS: BP 122/33
[2018-06-25 04:00] VITALS: BP 133/78
[2018-06-25 04:42] LABS: HEMATOCRIT 27.5 % (37.0-47.0); HEMOGLOBIN 9.1 gm/dL (12.0-15.0); MCH 32.4 pg (26.0-34.0); MCV 98.3 fL (80.0-100.0); MPV 7.1 fl. (7.2-11.1); RBC 2.8 mil/uL (4.20-5.00); RDW-CV 13.5 % (10.5-14.5); WBC 18.7 thou/uL (4.0-11.0)
--- NOTE | 2018-06-25 05:23 | NUR ---
VITALS WNL. SEE MAR. SEE CHARTING. FALL PRECAUTIONS IN PLACE. HOURLY ROUNDING FOR SAFETY.
[2018-06-25 06:22] LABS: CALCIUM 8.4 mg/dL (8.5-10.1); CREATININE 1.4 mg/dL (0.6-1.3)
[2018-06-25 08:00] VITALS: BP 112/40
--- NOTE | 2018-06-25 10:51 | NUR ---
ALESHA called to follow up with Chrissy at [facility] (pt first preference for SNF) and tried to confirm if pt even had 7 days of Medicare paid days at SNF or if pt would be in copay days already. Chrissy was in a meeting so ALESHA had to leave a detailed message and requested a call back.
[2018-06-25 11:51] VITALS: BP 135/53
[2018-06-25 16:00] VITALS: BP 130/45
--- NOTE | 2018-06-25 16:23 | NUR ---
SHIFT NOTE - PT STATES SHE IS HAVING A BAD DAY TODAY, WITH COUGH, FATIGUE, ETC. O2 AT 7L NC. PT UP WITH 1 MINIMAL ASSIST WITH WALKER. PT PARTICIPATED WITH PT/OT TODAY. WILL CONTINUE TO MONITOR.
[2018-06-25 20:00] VITALS: BP 130/39
[2018-06-26] VITALS: BP 124/41
[2018-06-26 03:20] LABS: HEMATOCRIT 26.4 % (37.0-47.0); HEMOGLOBIN 8.9 gm/dL (12.0-15.0); MCH 33.3 pg (26.0-34.0); MCHC 33.9 g/dL (28.0-37.0); MPV 6.7 fl. (7.2-11.1); RBC 2.69 mil/uL (4.20-5.00); RDW-CV 13.5 % (10.5-14.5); WBC 10.2 thou/uL (4.0-11.0)
[2018-06-26 03:36] LABS: CALCIUM 8.2 mg/dL (8.5-10.1); CREATININE 1.5 mg/dL (0.6-1.3); MAGNESIUM 2.3 mg/dL (1.8-2.4); POTASSIUM 4.6 mmol/L (3.5-5.1)
[2018-06-26 04:45] VITALS: BP 114/49
--- NOTE | 2018-06-26 06:15 | NUR ---
PATIENT SLEPT MOST OF THE NIGHT. IV REMAINS SALINE LOCKED. PATIENT REMAINS ON OXYGEN AT 6L PER NASAL CANNULA SATTING ABOUT 92-93%. WILL CONTINUE TO MONITOR.
[2018-06-26 08:00] VITALS: BP 104/40
--- NOTE | 2018-06-26 14:58 | NUR ---
SW met with pt and discussed information about how pt only has 6 days of Medicare paid SNF days remaining and then pt would be in copay days and pt does not have a secondary insurance to cover the copays. Pt said she would want to at least go for 6 days if possible but said that she would not be able to afford the copays. SW discussed HH and in home services after dc from SNF, pt said she would accept HH but said that the cost of in home would probably be too much for her as well. SW to continue to follow to assist with safe dc planning and placement to [facility] [place] at least for the 6 days.
--- NOTE | 2018-06-26 15:26 | NUR ---
LEFT CEPHALIC VESSEL ACCESSED FOR #20 [address] POWERGLIDE MIDLINE. LINE ADVANCED PER ACCELERATED SELDINGER PROCEDURE WITH NO RESISTANCE MET. LINE FLUSHES WITH EASE AND GOOD BRISK BLOOD RETURN NOTED. INSERTION SITE DRESSED AND REPORT GIVEN TO MATT GRANT.
[2018-06-26 16:41] VITALS: BP 137/61
--- NOTE | 2018-06-26 17:44 | NUR ---
SHIFT NOTE - PT UP WITH PT/OT THIS SHIFT. IV REPLACED TO MID-LINE LEFT UPPER ARM. WILL CONTINUE TO MONITOR.
[2018-06-26 20:00] VITALS: BP 109/52
[2018-06-27] VITALS: BP 151/50
[2018-06-27 03:31] VITALS: BP 121/42
[2018-06-27 04:00] LABS: HEMATOCRIT 27.1 % (37.0-47.0); HEMOGLOBIN 9.4 gm/dL (12.0-15.0); MCH 33.9 pg (26.0-34.0); MCHC 34.6 g/dL (28.0-37.0); MCV 97.9 fL (80.0-100.0); MPV 6.7 fl. (7.2-11.1); RBC 2.77 mil/uL (4.20-5.00); RDW-CV 13.3 % (10.5-14.5); WBC 10.8 thou/uL (4.0-11.0)
[2018-06-27 04:12] LABS: CALCIUM 8.2 mg/dL (8.5-10.1); CREATININE 1.6 mg/dL (0.6-1.3); POTASSIUM 4.7 mmol/L (3.5-5.1)
[2018-06-27 09:10] VITALS: BP 128/44
--- NOTE | 2018-06-27 12:12 | NUR ---
SW called and spoke with admissions at [facility] to update on pt status and that SW had discussed 6 days available at SNF and that pt was in agreement with plan. If pt dc over the weekend, SW to call Chrissy at [phone] to arrange for pt to admit to [facility] SNF.
[2018-06-27 15:45] VITALS: BP 131/63
--- NOTE | 2018-06-27 17:56 | NUR ---
PATIENT IS ALERT AND ORIENTED TODAY, PLEASANT. UP WITH WALKER, GAIT BELT AND OXYGEN. AMBULATED IN HALLWAYS TODAY WITH THERAPY. VITAL SIGNS HAVE BEEN STABLE ON 3 LITERS OF OXYGEN THROUGH NASAL CANNULA. CALL LIGHT IS IN REACH, WILL COTINUE TO MONITOR.
[2018-06-27 20:00] VITALS: BP 140/53
[2018-06-28 00:29] VITALS: BP 142/65
[2018-06-28 04:00] VITALS: BP 120/39
--- NOTE | 2018-06-28 05:56 | NUR ---
PT AO X4, FORGETFUL AND ANXIOUS AT TIMES. O2 2.5L NC, RT TX GIVEN ORDERED. TELE SR. UP WITH ASSIST TO BSC TO VOID. HS ACCUCHECK 120. DANA MIDLINE SL SOLUMEDROL GIVEN ORDERED. RECEIVING PO PAIN MED AT HS, MELATONIN FOR SLEEP.PO ABX GIVEN. ABLE TO USE CALL LITE AND MAKE NEEDS KNOWN.
[2018-06-28 08:08] VITALS: BP 128/52
[2018-06-28 12:39] VITALS: BP 144/43
--- NOTE | 2018-06-28 16:27 | NUR ---
ASSESSMENT COMPLETE. PT ALERT AND ORIENTED X4. PT REPORTS NAUSEA THIS AM, VOMITTING NOTED AROUND 1000, PROMETHIZINE PO GIVEN AND PT RESTING MOST OF THE AFTERNOON. PT NOT EATING MEALS DUE TO NAUSEA. PT REPORTS RELIEF WITH MEDICATION. PT IS ON 2L PER NC. RESPIRATORY PUT PT ON ROOM AIR AND PT DROPPED TO LOW 80'S, OXYGEN PLACED BACK ON PT. PT HAS OVERNIGHT PULSE OX ORDERED FOR TONIGHT. PT IS FALL RISK, BED ALARM ON. PT IS UP ONE ASSIST WITH WALKER. SEE ASSESSMENT AND VITALS FOR OTHER DETAILS. CALL LIGHT WITHIN REACH, WILL CONTINUE PLAN OF CARE
[2018-06-28 16:36] VITALS: BP 122/48
[2018-06-28 20:20] VITALS: BP 128/52
[2018-06-29] VITALS (7 sets, daily range): BP systolic 121–155; BP diastolic 44–80
--- NOTE | 2018-06-29 06:56 | NUR ---
PT SLEPT OFF AND ON OVERNIGHT. RECEIVED PO PHENERGAN AT HS FOR CO NAUSEA WITHOUT EMESIS. O2 2L, PULSE OX SAT STUDY OVERNIGHT-PT REQUIRING O2 2L TO KEEP SATS >92%. HS ACCUCHECK 144. TELE SR. NO LABS THIS MORNING. UP WITH ASSIST TO BSC TO VOID OVERNIGHT. SCHEDULED PAIN MED AND TYLENOL GIVEN PRN FOR BACK AND LEG PAIN WITH GOOD RELIEF. ABLE TO USE CALL LITE AND MAKE NEEDS KNOWN.
--- NOTE | 2018-06-29 16:37 | NUR ---
ASSESSMENT COMPLETE. PT ALERT AND ORIENTED X4. DENIES PAIN AND N/V. PT UP IN CHAIR MOST OF THE DAY. PT TOLERATING MEALS, DENIES N/V. LEFT ARM MIDLINE INTACT, FLUSHES WITHOUT DIFFICULTY. PT IS FALL RISK, BED ALARM ON. PT IS UP STANDBY WITH WALKER. VSS. SEE ASSESSMENT AND VITALS FOR OTHER DETAILS. CALL LIGHT WITHIN REACH, WILL CONTINUE PLAN OF CARE
[2018-06-30 04:13] VITALS: BP 132/68
[2018-06-30 04:26] LABS: HEMATOCRIT 27.7 % (37.0-47.0); HEMOGLOBIN 9.7 gm/dL (12.0-15.0); MCHC 34.9 g/dL (28.0-37.0); MCV 97.3 fL (80.0-100.0); MPV 6.5 fl. (7.2-11.1); RBC 2.84 mil/uL (4.20-5.00); RDW-CV 13.5 % (10.5-14.5); WBC 10.4 thou/uL (4.0-11.0)
[2018-06-30 04:48] LABS: CREATININE 1.5 mg/dL (0.6-1.3); MAGNESIUM 1.7 mg/dL (1.8-2.4); POTASSIUM 3.4 mmol/L (3.5-5.1)
--- NOTE | 2018-06-30 05:56 | NUR ---
PT SLEPT OFF AND ON OVERNIGHT. USING CALL LITE TO MAKE NEEDS KNOWN. UP WITH SBA AND WALKER TO BATHROOM SEVERAL TIMES OVERNIGHT. O2 2L NC, SAT 94%. RT TX. DANA MIDLINE SL. PO ABX GIVEN. VERY SMALL SOFT UNFORMED STOOL OVERNIGHT, SENT TO LAB FOR CDIFF ORDERED. REFUSING ACCUCHECK AT HS. NYSTATIN CREAM TO RISHABH AREA, PT STATES HEALING NICELY. MAG AND K REPLACED THIS MORNING DUE TO LOW LABS. TELE SR. AFEBRILE. PT STATES SHE WANTS TO DC TO [facility] SOON POSSIBLE. REPOSITIONS SELF FREQUENTLY SIDE TO SIDE IN BED. PO PAIN MED GIVEN PRN OVERNIGHT, EPISODE OF NAUSE WITH MEDS GIVEN-NO EMESIS.
[2018-06-30 07:50] VITALS: BP 126/38
--- NOTE | 2018-06-30 11:29 | NUR ---
Pt dc pending cdif results and medical approval; possibly tomorrow. When ready, Pt to dc to [facility] for at least 6 days. SW to continue to follow to assist with safe dc planning.
[2018-06-30 11:47] VITALS: BP 137/47
--- NOTE | 2018-06-30 14:10 | NUR ---
Nutrition: Pt was assessed for LOS. Likely discharging to SNF tomorrow, pending c. diff. Admitted with weakness. Usual wt ~100#. Regular diet. Physician indicated mild PCM - defer DX. Hopeful for good po intake at meal times. If pt has c. diff, would recommned probiotic use, yogurt daily. No nutrition interventions needed at this time. Mild risk for now.
[2018-06-30 16:00] VITALS: BP 143/43
--- NOTE | 2018-06-30 16:23 | NUR ---
CDIFF SAMPLE NEGATIVE, DR. SOTO NOTIFIED AFTER ROUNDING THIS AM. PATIENT TO HAVE DESAT OVERNIGHT STUDY DONE. [address], PATIENT PLACED ON RA THIS AM AND WAS 85-88%. 02 2L PLACED BACK ON PATIENT. UP AMBULATING WITH ASSISTANCE TO BATHROOM UTILIZING WALKER. MG AND K+ REPLACED PER PROTOCOL, REDRAW PENDING. POSSIBLE DISCHARGE TO THE [facility] TOMORROW.
[2018-06-30 18:39] LABS: MAGNESIUM 1.8 mg/dL (1.8-2.4)
[2018-06-30 18:40] LABS: POTASSIUM 4.5 mmol/L (3.5-5.1)
[2018-06-30 20:00] VITALS: BP 151/52
[2018-07-01 00:29] VITALS: BP 134/64
[2018-07-01 04:17] VITALS: BP 129/42
--- NOTE | 2018-07-01 07:15 | NUR ---
PATIENT SLEPT MOST OF THE NIGHT. MIDLINE REMAINS SALINE LOCKED. PATIENT WAS GIVEN PAIN MEDICINE ONCE IN ADDITION TO SCHEDULED PAIN MEDS. PATIENT IS NOW 1L OF OXYGEN PER NC. PATIENT IS SUPPOSED TO LEAVE TODAY. WILL CONTINUE TO MONITOR.
[2018-07-01 08:00] VITALS: BP 156/68
[2018-07-01] MEDS ORDERED: PREDNISONE 10 M10 M1 PO (09:20)
[2018-07-01] MEDS ORDERED: GABAPENTIN 100100 MG PO (09:20)
[2018-07-01] MEDS ORDERED: TRAMADOL 50 MG50 MG PO (09:20)
[2018-07-01] MEDS ORDERED: XANAX 0.25 MG0.25 MG PO (09:20)
[2018-07-01] MEDS ORDERED: ACIDOPHILUS1 EAC4 PO (09:20)
[2018-07-01] MEDS ORDERED: IPRAT-ALBUT 0.5-3 ML INH ×2 (09:20)
[2018-07-01] MEDS ORDERED: OXYCODONE-ACET1 EACH PO (09:20)
[2018-07-01] MEDS ORDERED: MUCINEX600 MG PO (09:20)
[2018-07-01] MEDS ORDERED: LIDODERM1 EACH TOP (09:28)
[2018-07-01] MEDS ORDERED: ASPERCREME HE70.8 GM TOP (09:28)
--- NOTE | 2018-07-01 10:38 | NUR ---
Pt ready to dc to SNF today. SW faxed final orders/dc summary/med list to [facility] SNF admissions and called and spoke with Chrissy in admissions to confirm as well as scheduled ride for Noon. SW called and spoke with pt dtr Nenita and informed of dc plans and SW spoke with pt about finalization of dc plans; all in agreement with plan. Pt nurse aware, chart copied. [facility] ph [phone] fax [phone].
[2018-07-01 10:54] VITALS: BP 156/68
--- NOTE | 2018-07-01 12:53 | NUR ---
PATIENT DISCHARGED TO THE [facility]. REPORT CALLED TO MAHSA. MIDLINE DC'D PER PROTOCOL. PATIENT OFF OF 02, PER RT ONLY NEEDS AT HS. PATIENT UP WITH WALKER AND ASSISTANCE, NO DIFFICULTY NOTED. PATIENT LEFT VIA WHEELCHAIR VAN WITH ALL BELONGINGS.
== END 2018-07-01 12:00 | DRG 190 ==
LOC: M.ERS 10:51 → M.3W 13:04 → M.TBA-ER 13:04 → M.3W 17:35
PROVIDERS: Family Medicine; Internal Medicine; ADMIT Internal Medicine
PROC: 05HY33Z Insertion of Infusion Device into Upper Vein, Percutaneous Approach (ICD-10-PCS; principal; 2018-06-26)
DX: J44.0 Chronic obstructive pulmonary disease with (acute) lower respiratory infection (principal); J18.0 Bronchopneumonia, unspecified organism; E87.1 Hypo-osmolality and hyponatremia; E44.1 Mild protein-calorie malnutrition; B37.89 Other sites of candidiasis; J44.1 Chronic obstructive pulmonary disease with (acute) exacerbation; N18.3 Chronic kidney disease, stage 3 (moderate); E86.9 Volume depletion, unspecified; I12.9 Hypertensive chronic kidney disease with stage 1 through stage 4 chronic kidney disease, or unspecified chronic kidney disease; I73.9 Peripheral vascular disease, unspecified; I27.20 Pulmonary hypertension, unspecified; Z87.891 Personal history of nicotine dependence; Z68.21 Body mass index [BMI] 21.0-21.9, adult; Z86.718 Personal history of other venous thrombosis and embolism; Z90.49 Acquired absence of other specified parts of digestive tract; Z95.820 Peripheral vascular angioplasty status with implants and grafts; Z79.02 Long term (current) use of antithrombotics/antiplatelets; Z79.899 Other long term (current) drug therapy; Z88.1 Allergy status to other antibiotic agents; Z88.2 Allergy status to sulfonamides; Z88.6 Allergy status to analgesic agent; Z88.8 Allergy status to other drugs, medicaments and biological substances; Z28.21 Immunization not carried out because of patient refusal

== ENCOUNTER 2018-07-16 13:46 | Inpatient (IN) | payer MEDICARE ==
[~2018-07-16] VITALS: Ht 152.4 cm; Wt 44.5 kg
--- NOTE | ~2018-07-16 | H ---
[address] [address] HISTORY AND PHYSICAL Name: CHAYO PRESTON Room: [address] IN [facility]#: [id number] Admission: 07/16/18 Attend Phys: Patt Malloy DO Discharge: Date of : 45 Report #: [id number] THIS REPORT FOR: //name// For History and Physical please refer to the consultation note in the patient's medical record from the acute account done the same day as Rehab Admission. By: 0839Medical Records Staff AMANDA /CHANCE
[~2018-07-16 13:46] MED LIST changes: +ASPERCREME HE70.8 GM TOP; +IPRAT-ALBUT 0.5-3 ML INH; +LIDODERM1 EACH TOP; +XANAX 0.25 MG0.25 MG PO
[2018-07-16] MEDS ORDERED: PREDNISONE 10 M10 MG PO (16:38)
[2018-07-16] MEDS ORDERED: TYLENOL325 MG PO (16:39)
[2018-07-16] MEDS ORDERED: CEFUROXIME500 MG PO (16:39)
[2018-07-16] MEDS ORDERED: COLACE100 MG PO (16:40)
[2018-07-16] MEDS ORDERED: IPRAT-ALBUT 0.5-3 ML INH (16:40)
[2018-07-16] MEDS ORDERED: CEPACOL SORE T1 EAC8 PO (16:41)
[2018-07-16] MEDS ORDERED: VANCOCIN 125 M125 M1 PO (16:42)
[2018-07-16] MEDS ORDERED: ENOXAPARIN30 MG/0.1 SUBQ (17:04)
[2018-07-16] MEDS ORDERED: TESSALON PERLE100 MG PO (17:13)
[2018-07-16 17:30] VITALS: BP 140/61
[2018-07-16 20:00] VITALS: BP 118/49
[2018-07-17 06:27] LABS: HEMATOCRIT 24.5 % (37.0-47.0); HEMOGLOBIN 8.3 gm/dL (12.0-15.0); MCH 32.7 pg (26.0-34.0); MCHC 33.9 g/dL (28.0-37.0); MCV 96.6 fL (80.0-100.0); MPV 6.6 fl. (7.2-11.1); RBC 2.53 mil/uL (4.20-5.00); RDW-CV 15.2 % (10.5-14.5); WBC 9.3 thou/uL (4.0-11.0)
[2018-07-17 06:30] LABS: CALCIUM 7.9 mg/dL (8.5-10.1); POTASSIUM 3.7 mmol/L (3.5-5.1)
[2018-07-17 08:00] VITALS: BP 117/49
[2018-07-17 20:09] VITALS: BP 133/73
[2018-07-18 07:00] VITALS: BP 130/54
[2018-07-18 11:11] VITALS: BP 144/73
[2018-07-18 20:00] VITALS: BP 127/57
[2018-07-19 20:49] VITALS: BP 139/61
[2018-07-20 08:33] VITALS: BP 143/57
[2018-07-20 19:45] VITALS: BP 138/62
[2018-07-21 08:09] VITALS: BP 128/54
[2018-07-21 19:45] VITALS: BP 150/64
[2018-07-22 08:00] VITALS: BP 128/49
[2018-07-22 20:00] VITALS: BP 131/53
[2018-07-23 07:30] VITALS: BP 122/45
[2018-07-23 20:29] VITALS: BP 147/58
[2018-07-24 07:59] VITALS: BP 121/34
[2018-07-24 19:31] VITALS: BP 173/69
[2018-07-25 08:15] VITALS: BP 151/50
[2018-07-25 19:54] VITALS: BP 153/54
[2018-07-26 07:00] VITALS: BP 131/75
[2018-07-26 08:00] VITALS: BP 131/75
[2018-07-26 19:59] VITALS: BP 145/57
[2018-07-27 08:25] VITALS: BP 116/55
[2018-07-27 20:00] VITALS: BP 158/56
[2018-07-28 08:58] VITALS: BP 137/60
[2018-07-28 15:02] LABS: PCO2 32.2 mmHg (35.0-45.0); PO2 93.6 mmHg (75.0-100.0); pH 7.519 (7.340-7.450)
--- NOTE | 2018-07-28 16:10 | EKG ---
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1945 Requested By: Jason Gonzales Order Number: [id number] Yinka MD: Zachary Burkett Measurements Intervals [place] Rate: 90 P: 42 OK: 124 QRS: -13 QRSD: 74 T: 32 QT: 307 QTc: 376 Interpretive Statements Sinus rhythm Left ventricular hypertrophy Inferior infarct, old possible Compared to ECG 07/08/2018 11:09:08 Left ventricular hypertrophy now present Myocardial infarct finding now present Electronically Signed On 07-28-2018 16:10:43 KNUCKLER by Zachary Burkett [email or web address] <ELECTRONICALLY SIGNED> By: Zachary Burkett MD, [facility] 07/28/18 1610 1106 1106 Zachary Burkett MD, [facility] /EPI
[2018-07-28 19:54] VITALS: BP 119/50
[2018-07-29 07:54] VITALS: BP 129/55
[2018-07-29 20:36] VITALS: BP 163/60
[2018-07-30 08:19] VITALS: BP 133/47
[2018-07-30 12:51] LABS: HEMATOCRIT 29.1 % (37.0-47.0); HEMOGLOBIN 9.8 gm/dL (12.0-15.0); MCH 32.2 pg (26.0-34.0); MCHC 33.7 g/dL (28.0-37.0); MCV 95.6 fL (80.0-100.0); MPV 6.1 fl. (7.2-11.1); NUCLEATED RBCS 0 /100WBC; PLATELET COUNT* 423 thou/uL (150-400); RBC 3.04 mil/uL (4.20-5.00); RDW-CV 15.1 % (10.5-14.5); WBC 21.1 thou/uL (4.0-11.0)
[2018-07-30 13:02] LABS: ALBUMIN 3.1 g/dL (3.4-5.0); CALCIUM 9.1 mg/dL (8.5-10.1); CREATININE 1.3 mg/dL (0.6-1.3); POTASSIUM 4.6 mmol/L (3.5-5.1); TOTAL BILIRUBIN 0.4 mg/dL (<0.1-1.0); TOTAL PROTEIN 6.9 g/dL (6.4-8.2)
[2018-07-30 13:31] LABS: ABSOLUTE LYMPHOCYTES 1.3 thou/uL (0.8-5.3); ABSOLUTE MONOCYTES 0.2 thou/uL (0.0-1.2); ABSOLUTE NEUTROPHILS 19.6 thou/uL (1.6-8.1); PLATELET ESTIMATE INCREASED
[2018-07-30 13:32] LABS: ANISOCYTOSIS 1+; POIKILOCYTOSIS 1+
[2018-07-30 19:54] VITALS: BP 150/58
[2018-07-31 06:45] VITALS: BP 133/56
[2018-07-31 07:15] VITALS: BP 141/44
[2018-07-31 13:21] VITALS: BP 133/56
--- NOTE | 2018-08-04 12:22 | PLAN ---
[facility] [address] [place] [address] REHAB UNIT PLAN OF CARE Name: CHAYO PRESTON Room: [address] IN [facility].#: [id number] Admission: 07/16/18 Attend Phys: Patt Malloy DO Discharge: 07/31/18 Date of : 45 Report #: [id number] THIS REPORT FOR: //name// CC: Luca Malloy OVERALL PLAN OF CARE: This is a 72-year-old female admitted for exacerbation of COPD. Onset 05/07/2019 at [facility] with needs in physical and occupational therapy as well as speech and language pathology. She is currently utilizing oxygen per nasal cannula. She does live in a 1 story home. Her daughter is available as well as her spouse. She has four stairs to enter. Previous level of function was modified independent to independent with activities of daily living. Current level of function is minimum assistance to moderate assistance depending on therapy, activity and time of day. She was ambulating 100 feet with a Rollator walker, shortness of air and fatigue were barriers. Speech and language pathology, she does have minimum assistance with problem solving and memory. MEDICAL PROGNOSIS: Good. REHABILITATION PROGNOSIS: Good. Estimated length of stay is 10-12 days with discharge disposition to the home setting. Physical therapy will see the patient 60-90 minutes per day, 5 days per week, working on upper and lower body strength, balance, coordination, navigation. Occupational therapy will see the patient 60-90 minutes per day, 5 days per week, working on upper and lower body strength, balance, coordination, navigation, bathing, dressing, toileting. Speech and language pathology will work with the patient 30-90 minutes per day, 5 days per week, working on problem solving, memory and strategies therein. This is an overall plan of care, might change from time to time. We will team weekly and make changes to plan of care as needed. <ELECTRONICALLY SIGNED> By: Patt Malloy DO 08/04/18 1222 1041 [id number] Malloy DO /nt
== END 2018-07-31 15:13 | disposition home health service (06) | DRG 189 ==
LOC: M.REH 13:46
PROVIDERS: Internal Medicine; ADMIT Physical Medicine & Rehabilitation
DX: J96.01 Acute respiratory failure with hypoxia (principal); J44.1 Chronic obstructive pulmonary disease with (acute) exacerbation; A04.71 Enterocolitis due to Clostridium difficile, recurrent; E44.0 Moderate protein-calorie malnutrition; I82.409 Acute embolism and thrombosis of unspecified deep veins of unspecified lower extremity; Z68.1 Body mass index [BMI] 19.9 or less, adult; I73.9 Peripheral vascular disease, unspecified; N18.3 Chronic kidney disease, stage 3 (moderate); R53.81 Other malaise; G89.29 Other chronic pain; I12.9 Hypertensive chronic kidney disease with stage 1 through stage 4 chronic kidney disease, or unspecified chronic kidney disease; R51 Headache; Z68.20 Body mass index [BMI] 20.0-20.9, adult; Z88.8 Allergy status to other drugs, medicaments and biological substances; Z88.1 Allergy status to other antibiotic agents; Z88.2 Allergy status to sulfonamides; Z79.899 Other long term (current) drug therapy; Z90.49 Acquired absence of other specified parts of digestive tract; Z80.1 Family history of malignant neoplasm of trachea, bronchus and lung; Z87.891 Personal history of nicotine dependence

== ENCOUNTER 2018-10-25 10:42 | Emergency (ER) | payer MEDICARE ==
[~2018-10-25] VITALS: Ht 154.9 cm; Wt 45.4 kg
[~2018-10-25 10:42] MED LIST changes: +CEFUROXIME500 MG PO; +CEPACOL SORE T1 EAC8 PO; +COLACE100 MG PO
[2018-10-25 11:21] LABS: URINE BLOOD NEGATIVE (Negative); URINE CLARITY CLEAR; URINE COLOR YELLOW; URINE GLUCOSE-RANDOM NEGATIVE (Negative); URINE KETONES NEGATIVE (Negative); URINE LEUKOCYTES-REFLEX NEGATIVE (Negative); URINE NITRITE-REFLEX NEGATIVE (Negative); URINE PROTEIN 1+ (Negative); URINE SPECIFIC GRAVITY 1.015 (1.005-1.030); URINE UROBILINOGEN 0.2 E.U./dl (0.2-1.0)
[2018-10-25 11:27] LABS: ABSOLUTE BASOPHILS 0.1 thou/uL (0.0-0.2); ABSOLUTE EOSINOPHILS 0.1 thou/uL (0.0-0.7); ABSOLUTE LYMPHOCYTES 1.8 thou/uL (0.8-5.3); ABSOLUTE MONOCYTES 0.9 thou/uL (0.0-1.2); ABSOLUTE NEUTROPHILS 6.3 thou/uL (1.6-8.1); BASOPHILS 0.6 %; EOSINOPHILS 1.1 %; HEMATOCRIT 34.5 % (37.0-47.0); HEMOGLOBIN 11.6 gm/dL (12.0-15.0); MCH 32.2 pg (26.0-34.0); MCHC 33.6 g/dL (28.0-37.0); MCV 95.9 fL (80.0-100.0); MONOCYTES 9.4 %; MPV 6.6 fl. (7.2-11.1); NUCLEATED RBCS 0 /100WBC; PLATELET COUNT* 376 thou/uL (150-400); POLYS 68.9 %; RBC 3.59 mil/uL (4.20-5.00); RDW-CV 16.3 % (10.5-14.5); WBC 9.1 thou/uL (4.0-11.0)
[2018-10-25 11:29] LABS: ICTOTEST (BILI CONFIRMATORY) Negative (Negative); URINE BILIRUBIN 1+ (Negative)
[2018-10-25 11:38] LABS: CALCIUM 9.2 mg/dL (8.5-10.1); CREATININE 1.6 mg/dL (0.6-1.3); POTASSIUM 4.4 mmol/L (3.5-5.1)
[2018-10-25 11:43] LABS: ALBUMIN 3.7 g/dL (3.4-5.0); TOTAL BILIRUBIN 0.4 mg/dL (<0.1-1.0); TOTAL PROTEIN 7.2 g/dL (6.4-8.2)
[2018-10-25 12:50] VITALS: BP 150/70
== END 2018-10-25 12:51 | disposition home or self-care (01) ==
LOC: M.ERS 10:42
PROVIDERS: Family Medicine
DX: R30.0 Dysuria (principal); R31.9 Hematuria, unspecified; J44.9 Chronic obstructive pulmonary disease, unspecified; I12.9 Hypertensive chronic kidney disease with stage 1 through stage 4 chronic kidney disease, or unspecified chronic kidney disease; N18.3 Chronic kidney disease, stage 3 (moderate); Z88.2 Allergy status to sulfonamides; Z88.1 Allergy status to other antibiotic agents; Z88.8 Allergy status to other drugs, medicaments and biological substances

== ENCOUNTER 2018-11-14 11:24 | Emergency (ER) | payer MEDICARE ==
[~2018-11-14] VITALS: Ht 154.9 cm; Wt 46.1 kg
[2018-11-14] MEDS ORDERED: PROBIOTIC1 EAC1 PO (11:35)
[2018-11-14 12:03] LABS: URINE BILIRUBIN NEGATIVE (Negative); URINE BLOOD NEGATIVE (Negative); URINE CLARITY CLEAR; URINE COLOR YELLOW; URINE GLUCOSE-RANDOM NEGATIVE (Negative); URINE KETONES NEGATIVE (Negative); URINE LEUKOCYTES-REFLEX NEGATIVE (Negative); URINE NITRITE-REFLEX NEGATIVE (Negative); URINE PROTEIN NEGATIVE (Negative); URINE SPECIFIC GRAVITY 1.015 (1.005-1.030); URINE UROBILINOGEN 0.2 E.U./dl (0.2-1.0)
[2018-11-14 12:04] LABS: ABSOLUTE EOSINOPHILS 0.2 thou/uL (0.0-0.7); ABSOLUTE LYMPHOCYTES 1.9 thou/uL (0.8-5.3); ABSOLUTE MONOCYTES 0.8 thou/uL (0.0-1.2); ABSOLUTE NEUTROPHILS 4.2 thou/uL (1.6-8.1); BASOPHILS 0.4 %; EOSINOPHILS 2.6 %; HEMATOCRIT 35.5 % (37.0-47.0); HEMOGLOBIN 11.8 gm/dL (12.0-15.0); LYMPHOCYTES 26.2 %; MCH 31.7 pg (26.0-34.0); MCHC 33.4 g/dL (28.0-37.0); MONOCYTES 11.6 %; MPV 6.7 fl. (7.2-11.1); NUCLEATED RBCS 0 /100WBC; PLATELET COUNT* 445 thou/uL (150-400); POLYS 59.2 %; RBC 3.74 mil/uL (4.20-5.00); RDW-CV 15.1 % (10.5-14.5); WBC 7.2 thou/uL (4.0-11.0)
[2018-11-14 12:21] LABS: CALCIUM 9.2 mg/dL (8.5-10.1); CREATININE 1.2 mg/dL (0.6-1.3); POTASSIUM 4.6 mmol/L (3.5-5.1)
[2018-11-14 12:26] LABS: ALBUMIN 3.6 g/dL (3.4-5.0); TOTAL BILIRUBIN 0.2 mg/dL (<0.1-1.0); TOTAL PROTEIN 7.5 g/dL (6.4-8.2)
[2018-11-14 14:46] VITALS: BP 156/63
== END 2018-11-14 14:46 | disposition home or self-care (01) ==
LOC: M.ERS 11:24
PROVIDERS: Nurse Practitioner Family
DX: R10.31 Right lower quadrant pain (principal); R10.32 Left lower quadrant pain; R30.0 Dysuria; I12.9 Hypertensive chronic kidney disease with stage 1 through stage 4 chronic kidney disease, or unspecified chronic kidney disease; N18.3 Chronic kidney disease, stage 3 (moderate); J44.9 Chronic obstructive pulmonary disease, unspecified; Z88.6 Allergy status to analgesic agent; Z88.2 Allergy status to sulfonamides; Z88.1 Allergy status to other antibiotic agents; Z88.8 Allergy status to other drugs, medicaments and biological substances; Z98.890 Other specified postprocedural states; Z86.718 Personal history of other venous thrombosis and embolism; Z90.49 Acquired absence of other specified parts of digestive tract

== ENCOUNTER 2018-12-02 11:17 | Emergency (ER) | payer MEDICARE ==
[~2018-12-02] VITALS: Ht 149.9 cm; Wt 45.4 kg
[2018-12-02] MEDS ORDERED: MEDROLDOSEPACK PO (12:10)
[2018-12-02 12:29] VITALS: BP 160/76
== END 2018-12-02 12:31 | disposition home or self-care (01) ==
LOC: M.ERS 11:17
DX: M54.32 Sciatica, left side (principal); M25.552 Pain in left hip; G89.29 Other chronic pain; J44.9 Chronic obstructive pulmonary disease, unspecified; I12.9 Hypertensive chronic kidney disease with stage 1 through stage 4 chronic kidney disease, or unspecified chronic kidney disease; N18.3 Chronic kidney disease, stage 3 (moderate); Z88.6 Allergy status to analgesic agent; Z88.1 Allergy status to other antibiotic agents; Z88.2 Allergy status to sulfonamides; Z88.8 Allergy status to other drugs, medicaments and biological substances; Z90.49 Acquired absence of other specified parts of digestive tract; Z86.718 Personal history of other venous thrombosis and embolism

== ENCOUNTER 2019-01-12 11:23 | Emergency (ER) | payer MEDICARE ==
[~2019-01-12] VITALS: Ht 154.9 cm; Wt 44.5 kg
[~2019-01-12 11:23] MED LIST changes: +MEDROLDOSEPACK PO
[2019-01-12] MEDS ORDERED: ZANAFLEX4 MG PO (12:31)
[2019-01-12 12:43] VITALS: BP 142/55
== END 2019-01-12 12:44 | disposition home or self-care (01) ==
LOC: M.ERS 11:23
DX: M25.511 Pain in right shoulder (principal); J44.9 Chronic obstructive pulmonary disease, unspecified; I12.9 Hypertensive chronic kidney disease with stage 1 through stage 4 chronic kidney disease, or unspecified chronic kidney disease; N18.3 Chronic kidney disease, stage 3 (moderate); G89.29 Other chronic pain; M25.559 Pain in unspecified hip; K56.600 Partial intestinal obstruction, unspecified as to cause; F11.20 Opioid dependence, uncomplicated; Z98.890 Other specified postprocedural states; Z90.49 Acquired absence of other specified parts of digestive tract; Z86.718 Personal history of other venous thrombosis and embolism; Z98.49 Cataract extraction status, unspecified eye; Z88.6 Allergy status to analgesic agent; Z88.1 Allergy status to other antibiotic agents; Z88.2 Allergy status to sulfonamides; Z88.8 Allergy status to other drugs, medicaments and biological substances

== ENCOUNTER 2019-04-14 11:01 | Emergency (ER) | payer MEDICARE ==
[~2019-04-14] VITALS: Ht 149.9 cm; Wt 44.5 kg
[~2019-04-14 11:01] MED LIST changes: +ZANAFLEX4 MG PO
[2019-04-14] MEDS ORDERED: NORCO 5-325 TA1 EAC1 PO (13:16)
[2019-04-14] MEDS ORDERED: MEDROLDOSEPACK PO (13:17)
[2019-04-14 13:32] VITALS: BP 164/61
== END 2019-04-14 13:33 | disposition home or self-care (01) ==
LOC: M.ERS 11:01
DX: M54.41 Lumbago with sciatica, right side (principal); G89.29 Other chronic pain; J44.9 Chronic obstructive pulmonary disease, unspecified; I12.9 Hypertensive chronic kidney disease with stage 1 through stage 4 chronic kidney disease, or unspecified chronic kidney disease; N18.3 Chronic kidney disease, stage 3 (moderate); Z88.6 Allergy status to analgesic agent; Z88.1 Allergy status to other antibiotic agents; Z88.2 Allergy status to sulfonamides; Z88.8 Allergy status to other drugs, medicaments and biological substances; Z98.51 Tubal ligation status; Z90.49 Acquired absence of other specified parts of digestive tract; Z86.718 Personal history of other venous thrombosis and embolism

== ENCOUNTER 2019-07-12 10:39 | Emergency (ER) | payer MEDICARE ==
[~2019-07-12] VITALS: Ht 139.7 cm; Wt 41.0 kg
[~2019-07-12 10:39] MED LIST changes: +NORCO 5-325 TA1 EAC1 PO
[2019-07-12] MEDS ORDERED: CEFDINIR300 MG PO (10:59)
[2019-07-12] MEDS ORDERED: LIPITOR 20 MG T20 M1 PO (10:59)
[2019-07-12 11:30] LABS: ABSOLUTE EOSINOPHILS 0.1 thou/uL (0.0-0.7); ABSOLUTE LYMPHOCYTES 1.7 thou/uL (0.8-5.3); ABSOLUTE MONOCYTES 0.8 thou/uL (0.0-1.2); ABSOLUTE NEUTROPHILS 3.4 thou/uL (1.6-8.1); BASOPHILS 0.5 %; EOSINOPHILS 1.7 %; HEMATOCRIT 33.3 % (37.0-47.0); HEMOGLOBIN 11.5 gm/dL (12.0-15.0); LYMPHOCYTES 28.2 %; MCH 33.3 pg (26.0-34.0); MCHC 34.6 g/dL (28.0-37.0); MCV 96.5 fL (80.0-100.0); MONOCYTES 13.1 %; MPV 6.8 fl. (7.2-11.1); NUCLEATED RBCS 0 /100WBC; PLATELET COUNT* 363 thou/uL (150-400); POLYS 56.5 %; RBC 3.45 mil/uL (4.20-5.00); RDW-CV 13.9 % (10.5-14.5)
[2019-07-12 11:41] LABS: INFLUENZA A ANTIGEN Negative (Negative); INFLUENZA B ANTIGEN Negative (Negative)
[2019-07-12 11:43] LABS: APTT 28.3 Seconds (25.0-31.3); PROTIME 10.2 Seconds (9.20-11.50)
[2019-07-12 11:44] LABS: CALCIUM 8.3 mg/dL (8.5-10.1); CREATININE 1.3 mg/dL (0.6-1.3); POTASSIUM 4.7 mmol/L (3.5-5.1)
[2019-07-12 11:51] LABS: URINE BILIRUBIN NEGATIVE (Negative); URINE BLOOD NEGATIVE (Negative); URINE CLARITY CLEAR; URINE COLOR YELLOW; URINE GLUCOSE-RANDOM NEGATIVE (Negative); URINE KETONES NEGATIVE (Negative); URINE LEUKOCYTES-REFLEX NEGATIVE (Negative); URINE NITRITE-REFLEX NEGATIVE (Negative); URINE PROTEIN NEGATIVE (Negative); URINE UROBILINOGEN 0.2 E.U./dl (0.2-1.0)
[2019-07-12 11:57] LABS: ALBUMIN 3.6 g/dL (3.4-5.0); TOTAL BILIRUBIN 0.3 mg/dL (<0.1-1.0); TOTAL PROTEIN 7.1 g/dL (6.4-8.2)
[2019-07-12] MEDS ORDERED: MEDROLDOSEPACK PO (12:14)
[2019-07-12] MEDS ORDERED: IPRAT-ALBUT 0.5-3 ML INH (13:29)
[2019-07-12 14:30] VITALS: BP 154/44
--- NOTE | 2019-07-13 16:44 | EKG ---
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: Franky : 1945 Requested By: Monica Wahl Order Number: [id number] MD: Zachary Burkett Measurements Intervals [place] Rate: 77 P: 55 WI: 132 QRS: -9 QRSD: 95 T: 55 QT: 367 QTc: 416 Interpretive Statements Sinus rhythm Atrial premature complex Inferior infarct, old possible anterior scar Compared to ECG 07/28/2018 11:06:33 Atrial premature complex(es) now present Left ventricular hypertrophy no longer present Myocardial infarct finding still present Electronically Signed On 07-13-2019 16:43:35 SPRAGGER by Zachary Burkett [email or web address] <ELECTRONICALLY SIGNED> By: Zachary Burkett MD, FACC 07/13/19 1643 1149 1149 Zachary Burkett MD, FAC /EPI
== END 2019-07-12 14:32 | disposition home or self-care (01) ==
LOC: M.ERS 10:39
PROVIDERS: Nurse Practitioner Family
DX: J44.1 Chronic obstructive pulmonary disease with (acute) exacerbation (principal); I12.9 Hypertensive chronic kidney disease with stage 1 through stage 4 chronic kidney disease, or unspecified chronic kidney disease; N18.3 Chronic kidney disease, stage 3 (moderate); G89.29 Other chronic pain; Z90.49 Acquired absence of other specified parts of digestive tract; Z88.6 Allergy status to analgesic agent; Z88.1 Allergy status to other antibiotic agents; Z88.2 Allergy status to sulfonamides; Z88.8 Allergy status to other drugs, medicaments and biological substances; Z87.891 Personal history of nicotine dependence

== ENCOUNTER 2019-07-15 11:43 | Emergency (ER) | payer MEDICARE ==
[~2019-07-15] VITALS: Ht 162.6 cm; Wt 44.5 kg
[~2019-07-15 11:43] MED LIST changes: +LIPITOR 20 MG T20 M1 PO
[2019-07-15 12:47] LABS: URINE BILIRUBIN NEGATIVE (Negative); URINE BLOOD NEGATIVE (Negative); URINE CLARITY CLEAR; URINE COLOR YELLOW; URINE GLUCOSE-RANDOM NEGATIVE (Negative); URINE KETONES NEGATIVE (Negative); URINE LEUKOCYTES-REFLEX TRACE (Negative); URINE NITRITE-REFLEX NEGATIVE (Negative); URINE PROTEIN NEGATIVE (Negative); URINE UROBILINOGEN 0.2 E.U./dl (0.2-1.0)
[2019-07-15 12:53] LABS: SQUAMOUS 0-3 Few /LPF (0-3)
[2019-07-15 12:54] LABS: BACTERIA-REFLEX 1-9 Few /HPF (None Seen); CASTS None Seen /LPF (None Seen); CRYSTALS None Seen /LPF (None Seen); URINE RBC 0-2 Rare /HPF (0-2); URINE WBC-REFLEX 0-5 Rare /HPF (0-5)
[2019-07-15 13:14] LABS: ABSOLUTE BASOPHILS 0.1 thou/uL (0.0-0.2); ABSOLUTE EOSINOPHILS 0.1 thou/uL (0.0-0.7); ABSOLUTE LYMPHOCYTES 2.9 thou/uL (0.8-5.3); ABSOLUTE MONOCYTES 1.1 thou/uL (0.0-1.2); ABSOLUTE NEUTROPHILS 7.4 thou/uL (1.6-8.1); BASOPHILS 0.5 %; EOSINOPHILS 0.7 %; HEMATOCRIT 35.1 % (37.0-47.0); HEMOGLOBIN 12.1 gm/dL (12.0-15.0); LYMPHOCYTES 25.3 %; MCH 33.5 pg (26.0-34.0); MCHC 34.4 g/dL (28.0-37.0); MCV 97.4 fL (80.0-100.0); MONOCYTES 9.5 %; MPV 7.7 fl. (7.2-11.1); NUCLEATED RBCS 0 /100WBC; PLATELET COUNT* 430 thou/uL (150-400); RDW-CV 14.2 % (10.5-14.5); WBC 11.6 thou/uL (4.0-11.0)
[2019-07-15 13:18] LABS: CALCIUM 8.8 mg/dL (8.5-10.1); CREATININE 1.1 mg/dL (0.6-1.3)
[2019-07-15 13:22] LABS: ALBUMIN 3.9 g/dL (3.4-5.0); TOTAL BILIRUBIN 0.3 mg/dL (<0.1-1.0); TOTAL PROTEIN 7.5 g/dL (6.4-8.2)
[2019-07-15] MEDS ORDERED: CITRATE OF MAG296 M1 PO (14:33)
[2019-07-15] MEDS ORDERED: MIRALAX17 GM PO (14:33)
[2019-07-15 14:51] VITALS: BP 166/48
--- NOTE | 2019-07-16 11:15 | EKG ---
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: : 1945 Requested By: Teofilo Rankin Order Number: [id number] MD: Alan Diana Measurements Intervals [place] Rate: 69 P: 51 IA: 130 QRS: -12 QRSD: 82 T: 39 QT: 369 QTc: 396 Interpretive Statements Sinus rhythm Inferior infarct, old Compared to ECG 07/12/2019 11:49:10 Atrial premature complex(es) no longer present Myocardial infarct finding still present Electronically Signed On 07-16-2019 11:14:05 PEDIATRIC SPEECH LANGUAGE PATHOLOGIST by Alan Diana [email or web address] <ELECTRONICALLY SIGNED> By: Alan Diana MD, FACC 07/16/19 1114 1239 1239 Alan Diana MD, [facility] /EPI
== END 2019-07-15 14:52 | disposition home or self-care (01) ==
LOC: M.ERS 11:43
PROVIDERS: Physician Assistant
DX: R10.84 Generalized abdominal pain (principal); I12.9 Hypertensive chronic kidney disease with stage 1 through stage 4 chronic kidney disease, or unspecified chronic kidney disease; N18.3 Chronic kidney disease, stage 3 (moderate); G89.29 Other chronic pain; J44.9 Chronic obstructive pulmonary disease, unspecified; Z88.6 Allergy status to analgesic agent; Z88.0 Allergy status to penicillin; Z88.2 Allergy status to sulfonamides; Z88.8 Allergy status to other drugs, medicaments and biological substances; Z87.891 Personal history of nicotine dependence

== ENCOUNTER 2019-07-17 14:32 | Inpatient (IN) | payer MEDICARE ==
[~2019-07-17] VITALS: Ht 149.9 cm; Wt 44.5 kg
[~2019-07-17 14:32] MED LIST changes: +CITRATE OF MAG296 M1 PO; +MIRALAX17 GM PO
[2019-07-17 15:04] VITALS: BP 202/68
[2019-07-17 15:34] LABS: ABSOLUTE EOSINOPHILS 0.2 thou/uL (0.0-0.7); ABSOLUTE LYMPHOCYTES 1.8 thou/uL (0.8-5.3); ABSOLUTE MONOCYTES 0.7 thou/uL (0.0-1.2); ABSOLUTE NEUTROPHILS 5.3 thou/uL (1.6-8.1); BASOPHILS 0.3 %; EOSINOPHILS 2.3 %; HEMATOCRIT 35.4 % (37.0-47.0); HEMOGLOBIN 12.2 gm/dL (12.0-15.0); LYMPHOCYTES 22.3 %; MCH 33.3 pg (26.0-34.0); MCHC 34.6 g/dL (28.0-37.0); MCV 96.5 fL (80.0-100.0); MPV 6.7 fl. (7.2-11.1); NUCLEATED RBCS 0 /100WBC; PLATELET COUNT* 414 thou/uL (150-400); POLYS 66.1 %; RBC 3.67 mil/uL (4.20-5.00); WBC 8.1 thou/uL (4.0-11.0)
[2019-07-17 15:38] LABS: CALCIUM 8.9 mg/dL (8.5-10.1); CREATININE 1.2 mg/dL (0.6-1.3); POTASSIUM 4.4 mmol/L (3.5-5.1)
[2019-07-17 15:44] LABS: ALBUMIN 3.7 g/dL (3.4-5.0); TOTAL BILIRUBIN 0.4 mg/dL (<0.1-1.0); TOTAL PROTEIN 7.3 g/dL (6.4-8.2)
[2019-07-17 16:04] LABS: URINE BILIRUBIN NEGATIVE (Negative); URINE BLOOD TRACE (Negative); URINE CLARITY CLEAR; URINE COLOR YELLOW; URINE GLUCOSE-RANDOM NEGATIVE (Negative); URINE KETONES NEGATIVE (Negative); URINE LEUKOCYTES-REFLEX NEGATIVE (Negative); URINE NITRITE-REFLEX NEGATIVE (Negative); URINE PROTEIN TRACE (Negative); URINE UROBILINOGEN 0.2 E.U./dl (0.2-1.0)
--- NOTE | 2019-07-17 17:50 | NUR ---
REPORT GIVEN TO JUANITA ANTONIO WHO IS TO ASSUME PT CARE INPATIENT NURSE.
[2019-07-17 18:03] VITALS: BP 128/47
[2019-07-17 18:30] VITALS: BP 150/60
--- NOTE | 2019-07-17 19:00 | NUR ---
1809: PATIENT ADMITTED TO FROM ER. REPORT REC'D. PATIENT C/O INTERMITTENT ABDOMINAL CRAMPING. STATES THAT SHE HAS BEEN IN THE ER 3 TIMES THIS WEEK FOR ABDOMINAL PAIN. STATES HAVING BM THIS AM. PATIENT STATES HAVING CHRONIC BACK PAIN, TAKING OXYCODONE AT NOC "WHEN IT IS REALLY BAD". IV FLUIDS INFUSING W/O DIFF, CATH SITE WNL. REVIEW OF POC DONE, PATIENT STATES VERBALLY OF UNDERSTANDING OF INSTRUCTIONS. CURRENTLY RESTING IN BED, TV ON, CALL LIGHT IN REACH. NO NURSING NEEDS VOICED AT THIS TIME. DR IN TO SEE PATIENT. ~ANNALISARKyler
[2019-07-17 20:49] VITALS: BP 143/58
[2019-07-18 04:13] LABS: ABSOLUTE EOSINOPHILS 0.2 thou/uL (0.0-0.7); ABSOLUTE MONOCYTES 0.6 thou/uL (0.0-1.2); ABSOLUTE NEUTROPHILS 4.7 thou/uL (1.6-8.1); BASOPHILS 0.5 %; EOSINOPHILS 2.8 %; HEMATOCRIT 30.3 % (37.0-47.0); HEMOGLOBIN 10.4 gm/dL (12.0-15.0); LYMPHOCYTES 26.4 %; MCH 33.4 pg (26.0-34.0); MCHC 34.5 g/dL (28.0-37.0); MONOCYTES 7.9 %; MPV 7.1 fl. (7.2-11.1); NUCLEATED RBCS 0 /100WBC; PLATELET COUNT* 349 thou/uL (150-400); POLYS 62.4 %; RBC 3.12 mil/uL (4.20-5.00); RDW-CV 14.2 % (10.5-14.5); WBC 7.6 thou/uL (4.0-11.0)
[2019-07-18 04:23] LABS: CALCIUM 7.5 mg/dL (8.5-10.1); POTASSIUM 4.3 mmol/L (3.5-5.1)
--- NOTE | 2019-07-18 05:41 | NUR ---
PATIENT HAS HAD FREQUENT WATERY STOOLS STILL REPORTS ABDOMINAL PAIN AND CRAMPING. SHE IS ABLE TO GET HERSELF UP TO THE COMMODE WELL. I GAVE HER 2 DOSES OF FENTANYL FOR PAIN. SHE IS TOLERATING CLEAR LIQUIDS WELL BUT HAS HAD SOME NAUSEA OVERNIGHT. SHE STILL FEELS CONSTIPATED WITH THE PAIN.
[2019-07-18 08:00] VITALS: BP 125/47
--- NOTE | 2019-07-18 10:21 | EKG ---
[place] [address] ELECTROCARDIOGRAM REPORT Name: CHAYO PRESTON Room: [address] IN ..#: [id number] Admission: 07/17/19 Attend Phys: Vinny Duran, Discharge: Date of : 45 Date of Service: 07/17/19 1759 Report #: [id number] THIS REPORT FOR: //name// [facility] ED Test Date: 2019-07-17 Test Time: 17:59:40 Pat Name: CHAYO PRESTON Department: Room: [facility] Gender: F Palliative Care Nurse: [facility] : 1945 Requested By: Teofilo Rankin Order Number: [id number] MD: Zachary Burkett Measurements Intervals [place] Rate: 60 P: 50 MO: 122 QRS: 1 QRSD: 86 T: 39 QT: 414 QTc: 414 Interpretive Statements Sinus rhythm Delayed R wave progression over the anterior precordium Compared to ECG 07/15/2019 12:39:16 Myocardial infarct finding no longer present Electronically Signed On 07-18-2019 10:20:02 PIZZA HUT ASSISTANT by Zachary Burkett [email or web address] <ELECTRONICALLY SIGNED> By: Zachary Burkett MD, [facility] 07/18/19 1020 1759 1759 Zachary Burkett MD, [facility] /EPI
[2019-07-18 15:20] VITALS: BP 150/54
--- NOTE | 2019-07-18 17:08 | NUR ---
PATIENT ALERT AND ORIENTED X 4. VITAL SIGNS STABLE ON ROOM AIR. AFEBRILE. UP WITH ASSISTANCE TO THE BEDSIDE COMODE. IV PATENT AND SALINE LOCKED. DENIES NAUSEA AT THIS TIME. PAIN BEING MANAGED WITH IV MEDICATION. TOLERATING CLEAR LIQUID DIET. FALL PRECAUTIONS IN PLACE AND BED ALARM ON. HOURLY ROUNDS MAINTAINED THROUGHOUT THE SHIFT. CALL LIGHT WITHIN REACH. NURSING WILL CONTINUE TO MONITOR.
[2019-07-18 20:44] VITALS: BP 143/48
--- NOTE | 2019-07-19 05:01 | NUR ---
PATIENT REPORTED SIGINIFICANT LEG PAIN THROUGHOUT SHIFT. SHE SAYS SHE HAS RESTLESS LEG SYNDROME AND WAS IN OBVIOUS PAIN, SHE WAS ABLE TO GET UP AND WALK AROUND TO STRETCH HER LEGS. SHE RECEIVED SCHEDULED GABAPENTIN AND FENTANYL 50 MCG Q4 UPON REQUEST. I WRAPPED HER LEGS IN WARM BLANKETS WHICH SEEMED TO HELP HER. SHE DID EVENTUALLY GET SOME SLEEP AFTER 0300. SHE CONTINUES TO BE ABLE TO HAVE BOWEL MOVEMENTS WHICH APPEAR MORE FORMED THAN PREVIOUS SHIFT. I ALSO GAVE TYLENOL FOR PAIN REPORTED IN LEGS TOO. PLAN IS TO ADVANCE DIET TODAY. SHE IS TOLERATING CLEAR LIQUIDS WELL. LUNG SOUNDS ARE MORE CLEAR. WILL CONTINUE TO FOLLOW PLAN OF CARE.
[2019-07-19 08:00] VITALS: BP 141/60
[2019-07-19 16:36] VITALS: BP 130/50
--- NOTE | 2019-07-19 17:16 | NUR ---
PATIENT ALERT AND ORIENTED X 4. VITAL SIGNS STABLE ON ROOM AIR. UP WITH ASSISTANCE TO THE BATHROOM. IV PATENT AND SALINE LOCKED. DENIES NAUSEA AT THIS TIME. PAIN BEING MANAGED WITH IV MEDICATION. DIET ADVANCED TODAY AND TOLERATING. FALL PRECAUTIONS IN PLACE AND BED ALARM ON. HOURLY ROUNDS MAINTAINED THROUGHOUT THE SHIFT. CALL LIGHT WITHIN REACH. NURSING WILL CONTINUE TO MONITOR.
[2019-07-19 21:06] VITALS: BP 147/51
--- NOTE | 2019-07-20 05:05 | NUR ---
PATIENT STILL HAD ISSUES WITH PAIN IN LEGS. SHE IS ALERT AND ORIENTED X4. RECEIVED SCHEDULED GABAPENTIN AND 50 MCG FENTANYL 2X FOR PAIN. SHE MOVED TO THE CHAIR TO SLEEP TO ELEVATE HER LEGS AND WAS MORE COMFORTABLE. SHE IS AMBULATING WELL TO THE RESTROOM AND IS TOLERATING DIET WELL. PLAN IS TO MONITOR FOR DIET TOLERANCE AND TO POSSIBLY D/C TODAY. WILL CONTINUE TO FOLLOW PLAN OF CARE.
[2019-07-20 08:01] VITALS: BP 124/46
--- NOTE | 2019-07-20 11:32 | NUR ---
FAXED REFERRAL TO [facility]. WILL CONFIRM WITH MISHA/INTAKE IF THEY RECEIVED AND BED AVAILABILITY FOR DISCHARGE THIS WEEK. [phone]; [phone]
[2019-07-20] MEDS ORDERED: ACETAMINOPHEN325 M1 PO (11:58)
[2019-07-20] MEDS ORDERED: ACIDOPHILUS1 EAC4 PO (11:58)
[2019-07-20 13:07] VITALS: BP 124/46
--- NOTE | 2019-07-20 13:10 | NUR ---
CONFIRMED WITH MISHA/INTAKE AT [facility] THAT THEY HAVE A BED AVAILABLE. PATIENT WILL BE DISCHARGED AND PICKED UP BY WHEELCHAIR VAN AT 15:30 TODAY. FAXED DISCHARGE SUMMARY, ORDERS AND PT EVALUATION TO [facility]. SPOKE TO PATIENT ABOUT DISCHARGE PLANS AND PATIENT WILL CALL SPOUSE. I LEFT MESSAGE FOR PATIENT'S SPOUSE TO CALL ME. [facility] [phone]; [phone]
[2019-07-20] MEDS ORDERED: NORCO 5-325 TA1 EAC1 PO (13:28)
--- NOTE | 2019-07-20 15:57 | NUR ---
I have reviewed the documentation by CAROLINE MITCHELL from 07/20/19 to 07/20/19 and I concur with it. MYRON REYNOLDS
--- NOTE | 2019-07-20 16:30 | NUR ---
PT TRANSFERED TO [facility] ABOUT 1600. IV OUT. PT STABLE. REPORT CALLED. DENIED PAIN. SOFT BM TODAY. TOLERATING DIET. PERSONAL BELONGINGS SENT WITH PT.
== END 2019-07-20 16:32 | DRG 392 ==
LOC: M.ERS 14:32 → M.TBA-ER 16:49 → M.ORTHSURG 16:49
PROVIDERS: Physician Assistant; ADMIT Internal Medicine
DX: A08.4 Viral intestinal infection, unspecified (principal); K56.7 Ileus, unspecified; F11.20 Opioid dependence, uncomplicated; J44.9 Chronic obstructive pulmonary disease, unspecified; N18.3 Chronic kidney disease, stage 3 (moderate); I12.9 Hypertensive chronic kidney disease with stage 1 through stage 4 chronic kidney disease, or unspecified chronic kidney disease; K59.00 Constipation, unspecified; G89.29 Other chronic pain; E03.9 Hypothyroidism, unspecified; M25.559 Pain in unspecified hip; Z79.899 Other long term (current) drug therapy; Z88.1 Allergy status to other antibiotic agents; Z88.2 Allergy status to sulfonamides; Z88.8 Allergy status to other drugs, medicaments and biological substances; Z87.891 Personal history of nicotine dependence; Z87.01 Personal history of pneumonia (recurrent); Z72.89 Other problems related to lifestyle; Z79.51 Long term (current) use of inhaled steroids; Z90.49 Acquired absence of other specified parts of digestive tract; Z98.49 Cataract extraction status, unspecified eye; Z86.718 Personal history of other venous thrombosis and embolism; Z80.1 Family history of malignant neoplasm of trachea, bronchus and lung; Z71.51 Drug abuse counseling and surveillance of drug abuser

== ENCOUNTER 2019-08-06 13:25 | Inpatient (IN) | payer MEDICARE ==
[~2019-08-06] VITALS: Ht 152.4 cm; Wt 44.5 kg
[~2019-08-06 13:25] MED LIST changes: +ACETAMINOPHEN325 M1 PO; +DILTIAZEM ER180 M2 PO
[2019-08-06 14:13] VITALS: BP 135/67
[2019-08-06 15:09] LABS: HEMATOCRIT 37.3 % (37.0-47.0); HEMOGLOBIN 12.7 gm/dL (12.0-15.0); MCH 32.4 pg (26.0-34.0); MCV 95.1 fL (80.0-100.0); MPV 6.4 fl. (7.2-11.1); NUCLEATED RBCS 0 /100WBC; PLATELET COUNT* 618 thou/uL (150-400); RBC 3.92 mil/uL (4.20-5.00); RDW-CV 14.8 % (10.5-14.5); WBC 19.5 thou/uL (4.0-11.0)
[2019-08-06 15:19] LABS: CALCIUM 9.5 mg/dL (8.5-10.1); POTASSIUM 4.4 mmol/L (3.5-5.1)
[2019-08-06 15:20] LABS: APTT 25.4 Seconds (25.0-31.3)
[2019-08-06 15:32] LABS: ALBUMIN 2.9 g/dL (3.4-5.0); TOTAL BILIRUBIN 0.8 mg/dL (<0.1-1.0); TOTAL PROTEIN 7.8 g/dL (6.4-8.2)
[2019-08-06 15:44] LABS: ABSOLUTE MONOCYTES 0.2 thou/uL (0.0-1.2); ABSOLUTE NEUTROPHILS 18.3 thou/uL (1.6-8.1); PLATELET ESTIMATE INCREASED
[2019-08-06 17:41] LABS: BE -1.1 mmol/L (-2 to +3); PCO2 35.5 mmHg (35.0-45.0); PO2 78.6 mmHg (75.0-100.0); pH 7.426 (7.340-7.450)
--- NOTE | 2019-08-06 19:43 | NUR ---
CALLED RT AND TALKED TO ALLI. INFORMED OF THE BREATHING TREATMENT DUE AT 1930.
[2019-08-06 22:10] VITALS: BP 108/35
[2019-08-06 22:12] VITALS: BP 135/52
[2019-08-07 04:00] VITALS: BP 127/52
[2019-08-07 07:30] VITALS: BP 78/41
[2019-08-07 09:30] VITALS: BP 120/50
[2019-08-07 11:38] LABS: ABSOLUTE LYMPHOCYTES 0.7 thou/uL (0.8-5.3); ABSOLUTE MONOCYTES 0.3 thou/uL (0.0-1.2); ABSOLUTE NEUTROPHILS 12.1 thou/uL (1.6-8.1); BASOPHILS 0.1 %; HEMATOCRIT 30.9 % (37.0-47.0); LYMPHOCYTES 5.3 %; MCH 32.8 pg (26.0-34.0); MCHC 33.6 g/dL (28.0-37.0); MCV 97.6 fL (80.0-100.0); MONOCYTES 2.3 %; MPV 6.8 fl. (7.2-11.1); NUCLEATED RBCS 0 /100WBC; PLATELET COUNT* 560 thou/uL (150-400); POLYS 92.3 %; RBC 3.16 mil/uL (4.20-5.00); RDW-CV 14.9 % (10.5-14.5); WBC 13.1 thou/uL (4.0-11.0)
[2019-08-07 11:40] LABS: HEMOGLOBIN 10.4 gm/dL (12.0-15.0)
[2019-08-07 12:00] VITALS: BP 105/46
[2019-08-07 12:01] LABS: ALBUMIN 2.3 g/dL (3.4-5.0); CALCIUM 7.7 mg/dL (8.5-10.1); CREATININE 1.3 mg/dL (0.6-1.3); MAGNESIUM 1.7 mg/dL (1.8-2.4); POTASSIUM 4.3 mmol/L (3.5-5.1); TOTAL BILIRUBIN 0.5 mg/dL (<0.1-1.0); TOTAL PROTEIN 6.5 g/dL (6.4-8.2)
[2019-08-07 15:45] VITALS: BP 103/44
--- NOTE | 2019-08-07 15:48 | NUR ---
CM spoke with and dtr in hallway. Pt resides at home with her and dtr. A&Ox2-3. Independent. Pt uses a walker for mobility. Hx of [facility]. Hx of [facility]. Goal is home at [place]. Following for dispo.
[2019-08-07 16:15] LABS: URINE BILIRUBIN NEGATIVE (Negative); URINE BLOOD NEGATIVE (Negative); URINE CLARITY CLEAR; URINE COLOR YELLOW; URINE GLUCOSE-RANDOM NEGATIVE (Negative); URINE KETONES TRACE (Negative); URINE LEUKOCYTES-REFLEX TRACE (Negative); URINE NITRITE-REFLEX NEGATIVE (Negative); URINE PROTEIN NEGATIVE (Negative); URINE SPECIFIC GRAVITY 1.025 (1.005-1.030); URINE UROBILINOGEN 0.2 E.U./dl (0.2-1.0)
[2019-08-07 16:22] LABS: SQUAMOUS 4-10 Moderate /LPF (0-3)
[2019-08-07 16:23] LABS: WBC CLUMPS Few (None Seen)
[2019-08-07 16:24] LABS: CASTS None Seen /LPF (None Seen); MUCUS None Seen strn/LPF (None Seen); URINE RBC 0-2 Rare /HPF (0-2); URINE WBC-REFLEX 6-15 Few /HPF (0-5)
[2019-08-07 16:25] LABS: CRYSTALS None Seen /LPF (None Seen)
--- NOTE | 2019-08-07 16:43 | EKG ---
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: MS : 1945 Requested By: Tj Garcia Order Number: [id number] MD: Zachary Burkett Measurements Intervals [place] Rate: 97 P: 70 TN: 119 QRS: -15 QRSD: 83 T: 93 QT: 312 QTc: 397 Interpretive Statements Sinus rhythm Atrial premature complex Borderline short TN interval Inferior infarct, old Compared to ECG 07/29/2019 18:08:27 Myocardial infarct finding now present Sinus tachycardia no longer present T-wave abnormality no longer present Electronically Signed On 08-07-2019 16:42:35 CDT by Zachary Burkett [email or web address] <ELECTRONICALLY SIGNED> By: Zachary Burkett MD, FACC 08/07/19 1642 1431 1431 Zachary Burkett MD, [facility] /EPI
--- NOTE | 2019-08-07 17:58 | NUR ---
PT ASSESSMENT CHARTED. LOW BP THIS MORNING. 500 ML BOLUS GIVEN WITH A FOLLOW UP MANUAL BLOOD PRESSURE CHECKED. NO COMPLAINTS OF PAIN. UP WITH 1 ASSIST IN ROOM. NO OTHER COMPLAINTS DURING THIS SHIFT.
[2019-08-07 19:30] VITALS: BP 97/45
[2019-08-08] VITALS: BP 108/49
[2019-08-08 04:00] VITALS: BP 101/39
[2019-08-08 04:30] LABS: HEMATOCRIT 25.8 % (37.0-47.0); HEMOGLOBIN 8.8 gm/dL (12.0-15.0); MCH 32.5 pg (26.0-34.0); MCHC 33.9 g/dL (28.0-37.0); MCV 95.8 fL (80.0-100.0); MPV 5.8 fl. (7.2-11.1); RBC 2.7 mil/uL (4.20-5.00); RDW-CV 14.7 % (10.5-14.5); WBC 13.1 thou/uL (4.0-11.0)
[2019-08-08 04:48] LABS: CALCIUM 6.8 mg/dL (8.5-10.1); CREATININE 1.1 mg/dL (0.6-1.3); MAGNESIUM 1.6 mg/dL (1.8-2.4); POTASSIUM 3.7 mmol/L (3.5-5.1)
--- NOTE | 2019-08-08 07:15 | NUR ---
CHANGE OF SHIFT, BEDSIDE REPORT GIVEN PATIENT SEEN AT BEDSIDE, IN BED RESTING ASSUMED PATIENT CARE
[2019-08-08 08:00] VITALS: BP 94/38
[2019-08-08 11:55] VITALS: BP 108/46
[2019-08-08 16:34] VITALS: BP 110/60
[2019-08-08 19:30] VITALS: BP 120/50
[2019-08-09] VITALS: BP 110/45
[2019-08-09 04:00] VITALS: BP 112/47
[2019-08-09 05:02] LABS: HEMATOCRIT 27.1 % (37.0-47.0); HEMOGLOBIN 9.5 gm/dL (12.0-15.0); MCH 33.4 pg (26.0-34.0); MCHC 35.1 g/dL (28.0-37.0); MCV 95.2 fL (80.0-100.0); MPV 6.1 fl. (7.2-11.1); RBC 2.84 mil/uL (4.20-5.00); RDW-CV 15.1 % (10.5-14.5); WBC 10.8 thou/uL (4.0-11.0)
--- NOTE | 2019-08-09 07:15 | NUR ---
CHANGE OF SHIFT, BEDSIDE REPORT GIVEN PATIENT SEEN AT BEDSIDE, IN BED ASLEEP ASSUMED PATIENT CARE
[2019-08-09 08:00] VITALS: BP 112/44
[2019-08-09 12:30] VITALS: BP 114/43
[2019-08-09 16:00] VITALS: BP 106/43
[2019-08-09 20:00] VITALS: BP 124/62
[2019-08-10] VITALS: BP 132/51
--- NOTE | 2019-08-10 07:10 | NUR ---
PATIENT REMAINS IN DROPLET PRECAUTIONS. NO SIGNIFICANT EVENTS THIS SHIFT. PATIENT SLEPT IN BED FOR THE DURATION OF THE NIGHT. VSS. MED SURG STATUS.
[2019-08-10 08:30] VITALS: BP 126/55
[2019-08-10] MEDS ORDERED: AUGMENTIN 875-1 EACH PO (09:00)
[2019-08-10] MEDS ORDERED: PREDNISONE 10 M10 MG PO (09:01)
[2019-08-10 12:03] VITALS: BP 121/46
[2019-08-10 12:19] VITALS: BP 121/46
--- NOTE | 2019-08-10 13:07 | NUR ---
Pt discharging to home today. Did not qualify for home o2. HH orders faxed to [facility].
[2019-08-10 13:31] VITALS: BP 121/46
--- NOTE | 2019-08-10 14:52 | NUR ---
ASSUMED CARE OF PT APPROX 0730. REASSESSMENT COMPLETED CHARTED. MEDICATIONS GIVEN CHARTED. SAFTEY PRECAUTIONS UTILIZED. HOURLY ROUNDED. DISCHARGE TEACHING COMPLETED WITH PT AND FAMILY. PTS DAUGHTER SIGNED DISCHARGE PAPERWORK PER PTS REQUEST. PT ESCORTED TO VEHICLE BY STAFF IN WHEELCHAIR.
== END 2019-08-10 14:30 | disposition home health service (06) | DRG 177 ==
LOC: M.ERS 13:25 → M.2W 16:35 → M.TBA-ER 16:35 → M.2W 22:34
PROVIDERS: Family Medicine; ADMIT Internal Medicine
DX: J69.0 Pneumonitis due to inhalation of food and vomit (principal); J96.01 Acute respiratory failure with hypoxia; E43 Unspecified severe protein-calorie malnutrition; J44.1 Chronic obstructive pulmonary disease with (acute) exacerbation; F11.20 Opioid dependence, uncomplicated; Z68.1 Body mass index [BMI] 19.9 or less, adult; R65.10 Systemic inflammatory response syndrome (SIRS) of non-infectious origin without acute organ dysfunction; F03.90 Unspecified dementia, unspecified severity, without behavioral disturbance, psychotic disturbance, mood disturbance, and anxiety; G89.29 Other chronic pain; I73.9 Peripheral vascular disease, unspecified; R62.7 Adult failure to thrive; E83.51 Hypocalcemia; I12.9 Hypertensive chronic kidney disease with stage 1 through stage 4 chronic kidney disease, or unspecified chronic kidney disease; N18.3 Chronic kidney disease, stage 3 (moderate); Z90.49 Acquired absence of other specified parts of digestive tract; Z98.49 Cataract extraction status, unspecified eye; Z86.718 Personal history of other venous thrombosis and embolism; Z88.3 Allergy status to other anti-infective agents; Z88.2 Allergy status to sulfonamides; Z88.8 Allergy status to other drugs, medicaments and biological substances; Z91.048 Other nonmedicinal substance allergy status; Z87.891 Personal history of nicotine dependence; Z80.1 Family history of malignant neoplasm of trachea, bronchus and lung

== ENCOUNTER 2019-12-16 14:41 | Emergency (ER) | payer MEDICARE ==
[~2019-12-16] VITALS: Ht 127 cm; Wt 40.4 kg
[2019-12-16 16:01] LABS: ABSOLUTE EOSINOPHILS 0.1 thou/uL (0.0-0.7); ABSOLUTE LYMPHOCYTES 2.2 thou/uL (0.8-5.3); ABSOLUTE MONOCYTES 0.9 thou/uL (0.0-1.2); ABSOLUTE NEUTROPHILS 9.7 thou/uL (1.6-8.1); BASOPHILS 0.4 %; EOSINOPHILS 0.5 %; HEMATOCRIT 37.3 % (37.0-47.0); HEMOGLOBIN 12.6 gm/dL (12.0-15.0); LYMPHOCYTES 16.7 %; MCHC 33.9 g/dL (28.0-37.0); MCV 94.4 fL (80.0-100.0); MONOCYTES 7.3 %; MPV 6.7 fl. (7.2-11.1); NUCLEATED RBCS 0 /100WBC; PLATELET COUNT* 388 thou/uL (150-400); POLYS 75.1 %; RBC 3.95 mil/uL (4.20-5.00); RDW-CV 14.8 % (10.5-14.5)
[2019-12-16 16:09] LABS: CALCIUM 9.7 mg/dL (8.5-10.1); CREATININE 1.2 mg/dL (0.6-1.3); POTASSIUM 4.3 mmol/L (3.5-5.1)
[2019-12-16 16:14] LABS: APTT 27.3 Seconds (25.0-31.3); PROTIME 10.3 Seconds (9.20-11.50)
[2019-12-16 16:20] LABS: ALBUMIN 3.9 g/dL (3.4-5.0); TOTAL BILIRUBIN 0.5 mg/dL (<0.1-1.0); TOTAL PROTEIN 7.9 g/dL (6.4-8.2)
[2019-12-16 17:24] LABS: URINE BILIRUBIN NEGATIVE (Negative); URINE BLOOD TRACE (Negative); URINE CLARITY CLEAR; URINE COLOR YELLOW; URINE GLUCOSE-RANDOM NEGATIVE (Negative); URINE KETONES NEGATIVE (Negative); URINE LEUKOCYTES-REFLEX NEGATIVE (Negative); URINE NITRITE-REFLEX NEGATIVE (Negative); URINE PROTEIN 1+ (Negative); URINE SPECIFIC GRAVITY 1.015 (1.005-1.030); URINE UROBILINOGEN 0.2 E.U./dl (0.2-1.0)
[2019-12-16] MEDS ORDERED: CEFDINIR300 MG PO (17:25)
[2019-12-16] MEDS ORDERED: MUCUS RELIEF C237 M1 PO (17:25)
[2019-12-16] MEDS ORDERED: MEDROLDOSEPACK PO (17:25)
[2019-12-16 17:47] VITALS: BP 167/63
--- NOTE | 2019-12-17 13:20 | EKG ---
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: : 1945 Requested By: Monica Wahl Order Number: [id number] MD: Alan Diana Measurements Intervals [place] Rate: 81 P: 41 GA: 109 QRS: -19 QRSD: 80 T: 49 QT: 357 QTc: 415 Interpretive Statements Sinus rhythm Short [place] interval Inferior infarct, old Compared to ECG 08/06/2019 14:31:40 Atrial premature complex(es) no longer present Myocardial infarct finding still present Electronically Signed On 12-17-2019 13:20:21 CDT by Alan Diana [email or web address] <ELECTRONICALLY SIGNED> By: Alan Diana MD, FACC 12/17/19 1320 1459 1459 Alan Diana MD, [facility] /EPI
== END 2019-12-16 17:47 | disposition home or self-care (01) ==
LOC: M.ERS 14:41
PROVIDERS: Nurse Practitioner Family
DX: J44.1 Chronic obstructive pulmonary disease with (acute) exacerbation (principal); J06.9 Acute upper respiratory infection, unspecified; Z20.828 Contact with and (suspected) exposure to other viral communicable diseases; G89.29 Other chronic pain; I13.10 Hypertensive heart and chronic kidney disease without heart failure, with stage 1 through stage 4 chronic kidney disease, or unspecified chronic kidney disease; N18.3 Chronic kidney disease, stage 3 (moderate); Z98.51 Tubal ligation status; Z90.49 Acquired absence of other specified parts of digestive tract; Z86.718 Personal history of other venous thrombosis and embolism; Z95.5 Presence of coronary angioplasty implant and graft

== ENCOUNTER 2019-12-21 10:03 | Inpatient (IN) | payer MEDICARE ==
[~2019-12-21] VITALS: Ht 152.4 cm; Wt 46.3 kg
[~2019-12-21 10:03] MED LIST changes: +MUCUS RELIEF C237 M1 PO
[2019-12-21 10:21] VITALS: BP 158/58
[2019-12-21 10:59] LABS: ABSOLUTE EOSINOPHILS 0.2 thou/uL (0.0-0.7); ABSOLUTE LYMPHOCYTES 2.6 thou/uL (0.8-5.3); ABSOLUTE MONOCYTES 1.1 thou/uL (0.0-1.2); ABSOLUTE NEUTROPHILS 12.4 thou/uL (1.6-8.1); BASOPHILS 0.3 %; EOSINOPHILS 0.9 %; HEMATOCRIT 34.8 % (37.0-47.0); HEMOGLOBIN 11.7 gm/dL (12.0-15.0); MCH 31.7 pg (26.0-34.0); MCHC 33.7 g/dL (28.0-37.0); MCV 94.1 fL (80.0-100.0); MONOCYTES 6.6 %; MPV 6.4 fl. (7.2-11.1); NUCLEATED RBCS 0 /100WBC; PLATELET COUNT* 427 thou/uL (150-400); POLYS 76.2 %; RBC 3.69 mil/uL (4.20-5.00); RDW-CV 14.7 % (10.5-14.5); WBC 16.2 thou/uL (4.0-11.0)
[2019-12-21 11:12] LABS: PROTIME 10.2 Seconds (9.20-11.50)
[2019-12-21 11:14] LABS: CALCIUM 8.3 mg/dL (8.5-10.1); CREATININE 1.4 mg/dL (0.6-1.3); POTASSIUM 4.4 mmol/L (3.5-5.1)
[2019-12-21 11:18] LABS: ALBUMIN 3.4 g/dL (3.4-5.0); MAGNESIUM 1.5 mg/dL (1.8-2.4); TOTAL BILIRUBIN 0.3 mg/dL (<0.1-1.0); TOTAL PROTEIN 7.3 g/dL (6.4-8.2)
[2019-12-21 11:21] LABS: URINE BILIRUBIN NEGATIVE (Negative); URINE BLOOD NEGATIVE (Negative); URINE CLARITY CLEAR; URINE COLOR YELLOW; URINE GLUCOSE-RANDOM NEGATIVE (Negative); URINE KETONES NEGATIVE (Negative); URINE LEUKOCYTES-REFLEX NEGATIVE (Negative); URINE NITRITE-REFLEX NEGATIVE (Negative); URINE PROTEIN NEGATIVE (Negative); URINE SPECIFIC GRAVITY 1.015 (1.005-1.030); URINE UROBILINOGEN 0.2 E.U./dl (0.2-1.0)
[2019-12-21 11:31] LABS: BE 0.2 mmol/L (-2 to +3); PCO2 40.1 mmHg (35.0-45.0); pH 7.409 (7.340-7.450)
[2019-12-21 13:50] VITALS: BP 131/38
[2019-12-21 14:50] VITALS: BP 175/70
--- NOTE | 2019-12-21 15:17 | EKG ---
[place] [address] ELECTROCARDIOGRAM REPORT Name: CHAYO PRESTON Room: [address] IN ..#: [id number] Admission: 12/21/19 Attend Phys: Izzy Aldana, Discharge: Date of : 45 Date of Service: 12/21/19 1035 Report #: [id number] THIS REPORT FOR: //name// [facility] ED Test Date: 2019-12-21 Test Time: 10:35:07 Pat Name: CHAYO PRESTON Department: Room: [facility] Gender: F Cost Estimating Engineer: JIE : 1945 Requested By: Kelly Dasilva Order Number: [id number] MD: Zachary Burkett Measurements Intervals [place] Rate: 66 P: 0 IL: 58 QRS: 17 QRSD: 86 T: 29 QT: 395 QTc: 414 Interpretive Statements Sinus rhythm Short [place] interval Anteroseptal infarct, age indeterminate possible Artifact in lead(s) I,II,III,aVR,aVL,aVF,V1,V2,V3,V4 Compared to ECG 12/16/2019 14:59:05 No significant changes Electronically Signed On 12-21-2019 15:17:45 CDT by Zachary Burkett [email or web address] <ELECTRONICALLY SIGNED> By: Zachary Burkett MD, [facility] 12/21/19 1517 1035 1035 Zachary Burkett MD, [facility] /EPI
--- NOTE | 2019-12-21 15:59 | NUR ---
pt admitted on tele unit at 1415 report received from er nurse. pt is aox4. on 2 l nc. o2 saturation is 94%. pt up stand by assist. tracing sinus rythm on the classroom monitor. denies pain. normal saline infusing at 100 cc per hour. on enhanced precaution due to pending covid 19 test result. lung sounds are diminished. fall precaution in place. call ligth at reach. skin intact wxcept that some bruising are present. will continue to monitor pt
[2019-12-21 20:00] VITALS: BP 156/80
[2019-12-22] VITALS: BP 106/45
[2019-12-22 04:00] VITALS: BP 108/49
[2019-12-22 08:00] VITALS: BP 116/47
[2019-12-22 12:00] VITALS: BP 131/45
[2019-12-22 16:00] VITALS: BP 116/48
--- NOTE | 2019-12-22 16:38 | 2DMMODE ---
[place] [address] 2 D/M-MODE ECHOCARDIOGRAM Name: CHAYO PRESTON Room: [address] IN [facility]#: [id number] Admission: 12/21/19 Attend Phys: Izzy Aldana, Discharge: Date of : 45 Date of Service: 12/22/19 1638 Report #: [id number] THIS REPORT FOR: cc: Luca Ryder Brad DO Holkins,Zachary Aleman MD [facility] ~ APPROVED REPORT Study performed: 12/22/2019 14:03:16 EXAM: Comprehensive 2D, Doppler, and color-flow Echocardiogram Patient Location: In-Patient Room #: [facility] Status: routine BSA: 1.32 HR: 79 bpm BP: 108/49 mmHg Rhythm: NSR Other Information Study Quality: Good Indications Dyspnea 2D Dimensions IVSd: 6.73 (7-11mm) LVOT Diam: 19.34 (18-24mm) LVDd: 39.22 mm PWd: 7.41 (7-11mm) Ascending Ao: 30.49 (22-36mm) LVDs: 24.86 (25-40mm) Aortic Root: 26.52 mm Volumes Left Atrial Volume (Systole) LA ESV Index: 18.70 mL/m2 Aortic Valve AoV Peak Deepak.: 1.78 m/s AO Peak Gr.: 12.74 mmHg LVOT Max P.75 mmHg AO Mean Gr.: 6.41 mmHg LVOT Mean P.82 mmHg LVOT Max V: 1.71 m/s AO V2 VTI: 33.69 cm LVOT Mean V: 0.98 m/s CHERELLE (VTI): 2.84 cm2 LVOT V1 VTI: 32.54 cm AI [place]: 2.82 m/s2 [place] [address] 2 D/M-MODE ECHOCARDIOGRAM Name: CHAYO PRESTON Room: [address] IN ..#: [id number] Admission: 12/21/19 Attend Phys: Izzy Aldana, Discharge: Date of : 45 Date of Service: 12/22/19 1638 Report #: [id number] AI PHT: 336.89 ms Mitral Valve E/A Ratio: 0.89 MV Decel. Time: 264.77 ms MV E Max Deepak.: 0.98 m/s MV PHT: 76.78 ms MVA (PHT): 2.87 cm2 TDI E/Lateral E': 10.89 E/Medial E': 9.80 Medial E' Deepak.: 0.10 m/s Lateral E' Deepak.: 0.09 m/s Pulmonary Valve PV Peak Deepak.: 0.97 m/s PV Peak Gr.: 3.73 mmHg Tricuspid Valve RAP Estimate: 5.00 mmHg TR Peak Gr.: 26.00 mmHg RVSP: 31.00 mmHg PA Pressure: 31.00 mmHg Left Ventricle The left ventricle is normal size. There is normal LV segmental wall motion. There is normal left ventricular wall thickness. Left ventricular systolic function is normal. The left ventricular ejection fraction is within the normal range. LVEF is 60-65%. Grade I - abnormal relaxation pattern. Right Ventricle The right ventricle is normal size. The right ventricular systolic function is normal. Atria The left atrium size is normal. The right atrium size is normal. Aortic Valve Mild aortic valve sclerosis. Mild to moderate aortic regurgitation. No hemodynamically significant valvular aortic stenosis. Mitral Valve The mitral valve is normal in structure. There is no mitral valve regurgitation noted. No evidence of mitral valve stenosis[place] [address] 2 D/M-MODE ECHOCARDIOGRAM Name: CHAYO PRESTON Room: [address]#: [id number] Admission: 12/21/19 Attend Phys: Izzy Aldana, Discharge: Date of : 45 Date of Service: 12/22/19 1638 Report #: [id number] The tricuspid valve is normal in structure. Mild tricuspid regurgitation. Mild pulmonary hypertension. Pulmonic Valve The pulmonary valve is normal in structure. There is no pulmonic valvular regurgitation. Great Vessels The aortic root is normal in size. IVC is normal in size and collapses >50% with inspiration. Pericardium There is no pericardial effusion. <Conclusion> The left ventricle is normal size. There is normal left ventricular wall thickness. Left ventricular systolic function is normal. The left ventricular ejection fraction is within the normal range. LVEF is 60-65%. Grade I - abnormal relaxation pattern. The right ventricle is normal size. The left atrium size is normal. Mild aortic valve sclerosis. Mild to moderate aortic regurgitation. No hemodynamically significant valvular aortic stenosis. The mitral valve is normal in structure. The tricuspid valve is normal in structure. Mild tricuspid regurgitation. Mild pulmonary hypertension. IVC is normal in size and collapses >50% with inspiration. There is no pericardial effusion. There is normal LV segmental wall motion. <ELECTRONICALLY SIGNED> By: Zachary Burkett MD, FACC 12/22/19 1638 1638 1638 Zachary Burkett MD, FACC /INF
--- NOTE | 2019-12-22 17:33 | NUR ---
CM SPK W/PT'S SPOUSE, BLAKE AND DTR, EUSEBIA TO DISCUSS D/C PLANNING. PT LIVES HOME W/SPOUSE AND DTR. PT IS VERY ACTIVE, "SHE DANCES". PT IS INDEPENDENT W/ADLS. PT HAS GOOD SUPPORT SYSTEM. PT HAS NO HX W/ HH AND PT STAY AT [facility] IN PAST, BUT DOES NOT WISH TO RTRN TO THAT FACILITY. PT HAS WALKER W/SEAT. CM TO REMAIN AVAIL TO CONT TO FOLLOW.
[2019-12-22 20:00] VITALS: BP 129/44
[2019-12-23] VITALS: BP 119/38
[2019-12-23 00:25] VITALS: BP 138/50
[2019-12-23 04:00] VITALS: BP 119/59; BP 133/42
[2019-12-23 08:00] VITALS: BP 145/75
--- NOTE | 2019-12-23 16:06 | NUR ---
Pt not ready to dc as of yet, SW to continue to follow to assist with safe dc planning of home with family care. Pt has walker and history of [facility] services if HH needed at dc. [facility] [phone]
--- NOTE | 2019-12-23 19:00 | NUR ---
ASSUMED PT CARE AT 0730. ASSESSMENT COMPLETED CHARTED. ABLE TO MAKE NEEDS KNOWN. UP WITH SBA. NO C/O PAIN OR DISCOMFORT. IV ABT RUNNING PER EMAR. 2L O2 ON NEEDED. RESTING IN BED MOST OF THE DAY. WILL CONTINUE TO MONITOR.
[2019-12-23 20:00] VITALS: BP 137/54
[2019-12-24] VITALS: BP 141/41
[2019-12-24 05:36] LABS: HEMATOCRIT 30.4 % (37.0-47.0); HEMOGLOBIN 10.3 gm/dL (12.0-15.0); MCHC 33.8 g/dL (28.0-37.0); MCV 94.8 fL (80.0-100.0); MPV 6.6 fl. (7.2-11.1); RBC 3.21 mil/uL (4.20-5.00); RDW-CV 14.6 % (10.5-14.5); WBC 12.9 thou/uL (4.0-11.0)
[2019-12-24 06:29] LABS: CALCIUM 7.2 mg/dL (8.5-10.1); CREATININE 1.4 mg/dL (0.6-1.3); MAGNESIUM 1.6 mg/dL (1.8-2.4); POTASSIUM 3.3 mmol/L (3.5-5.1)
[2019-12-24 08:00] VITALS: BP 160/61
--- NOTE | 2019-12-24 14:48 | NUR ---
Pt remains with needs for hospitalization. SW continuing to follow for dc planning home with family and possible [facility] if HH is needed.
[2019-12-24 16:00] VITALS: BP 126/32
--- NOTE | 2019-12-24 18:14 | NUR ---
ASSUMED PT CARE AT 17:15 AM REPORT RECEIVED FROM NURSE. PT IS AOX4. ON RA. MEDICAL SURGICAL STATUS. COMPLAINS OF PAIN IN RIGHT HIP. NORCO GIVEN. BUT PAIN WAS NOT RELIEVED WITH NORCO. HEATING PAD ORDERED. HEATING PAD APPLIED ON PT'S RIGHT HIP. PT STATED RELIEF FROM PAIN WITH HEATING PAD USE. ELECTROLYTE REPLACEMENT GIVEN TO PT. SEE EMAR. PT REMAINS OF RA DURING THE WHOLE SHIFT. PATIENT HAD A BOWEL MOVEMENT DURING THIS SHIFT. UP WITH STAND BY ASSIST TO RESTROOM. BED ALRM ON AT ALL TIME. PT RECEIVED A SHOWER THIS AM AND ATE HER MEALS SITTING AT THE BEDSIDE. IV ANTIBIOTIC GIVEN ORDERED. CALL LIGTH WITHIN REACH.
[2019-12-24 20:00] VITALS: BP 140/52
[2019-12-25] VITALS: BP 157/61
[2019-12-25 04:00] VITALS: BP 143/48
[2019-12-25 04:32] LABS: HEMATOCRIT 30.1 % (37.0-47.0); HEMOGLOBIN 10.3 gm/dL (12.0-15.0); MCH 32.2 pg (26.0-34.0); MCHC 34.1 g/dL (28.0-37.0); MCV 94.6 fL (80.0-100.0); MPV 6.5 fl. (7.2-11.1); RBC 3.19 mil/uL (4.20-5.00); RDW-CV 14.7 % (10.5-14.5); WBC 26.4 thou/uL (4.0-11.0)
[2019-12-25 04:45] LABS: CALCIUM 7.7 mg/dL (8.5-10.1); CREATININE 1.4 mg/dL (0.6-1.3); MAGNESIUM 1.8 mg/dL (1.8-2.4)
[2019-12-25 04:46] LABS: POTASSIUM 4.4 mmol/L (3.5-5.1)
--- NOTE | 2019-12-25 05:37 | NUR ---
ASSESSMENT COMPLETED AT BEDSIDE, PLEASE REFER TO CHARTING FOR DETAILS. MEDICATIONS ADMINISTERED FOR MAR. PT STATED SHE HAD A HARD TIME SLEEPING THE NIGHT PRIOR. ADMINISTERED MELITONIN WITH NO RESULTS, ADMINSTERED AMBIN WHICH WAS EFFECTIVE FOR PT BUT DID RESULT IN ONE EPISODE OF WONDERING, EASILY REDIRECTED AND WENT BACK TO SLEEP. HOURLY ROUNDING IN PLACE FOR SAFETY, BED ALARM ON AND CALL LIGHT WITHIN REACH.
[2019-12-25 08:00] VITALS: BP 135/59
--- NOTE | 2019-12-25 08:16 | NUR ---
ASSUMED PT CARE AT 07:15 AM. REPORT RECEIVED FROM NURSE. PT IS OAX4. ON RA. O2 SATURATION IS 93%. LUNG SOUNDS ARE COARSE BILATERALLY. VSS. SEE CHART. MEDSURG STATUS. COMPLAINS OF PAIN IN LEFT HIP AREA. HEATING PAD IN PLACE ON LEFT HIP AREA. HEATING PAD HELPS WITH COMFORT ACCORDING TO PATIENT. HOWEVER, PATIENT STATES THAT THE HEATING PAD MAKES HER FEEL COMFORTABLE. FALL PRECAUTION IN PLACE. WILL CONTINUE TO MONITOR PATIENT.
--- NOTE | 2019-12-25 16:40 | NUR ---
Pt possible to dc home Saturday with family. SW faxed initial referral information to [facility]. Fax final orders and med list to [facility] upon DC fax [phone]
[2019-12-25 17:08] VITALS: BP 137/54
--- NOTE | 2019-12-25 18:20 | NUR ---
PATIENT DENIES PAIN BY THE END OF SHIFT. IV ANTIBIOTIC ADMINISTERED ORDERED. HEATING PAD IS STILL IN PLACE ON LEFT HIP AREA. PT HAS GOOD APPETITE.
[2019-12-25 20:00] VITALS: BP 128/68
[2019-12-26] VITALS: BP 148/48
[2019-12-26 04:47] LABS: HEMATOCRIT 32.3 % (37.0-47.0); HEMOGLOBIN 10.9 gm/dL (12.0-15.0); MCH 31.5 pg (26.0-34.0); MCHC 33.6 g/dL (28.0-37.0); MCV 93.7 fL (80.0-100.0); MPV 6.3 fl. (7.2-11.1); RBC 3.45 mil/uL (4.20-5.00); RDW-CV 14.7 % (10.5-14.5); WBC 24.3 thou/uL (4.0-11.0)
[2019-12-26 05:18] LABS: ALBUMIN 2.7 g/dL (3.4-5.0); CREATININE 1.4 mg/dL (0.6-1.3); MAGNESIUM 1.8 mg/dL (1.8-2.4); POTASSIUM 3.9 mmol/L (3.5-5.1); TOTAL BILIRUBIN 0.2 mg/dL (<0.1-1.0)
--- NOTE | 2019-12-26 05:26 | NUR ---
ASSESSMENT COMPLETED AT BEDSIDE, PLEASE REFER TO CHARTING FOR DETAILS. MEDICATIONS ADMINISTERED PER MAR. HOURLY ROUNDING FOR SAFETY. FALL PRECAUTIONS IN PLACE, BED ALARM IS ON AND CALL LIGHT WITHIN REACH. PT REPORTED PAIN AT START OF SHIFT, PRN PAIN MEDICATION EFFECT, NO OTHER CONCERNS NOTED AT THIS TIME.
[2019-12-26 08:00] VITALS: BP 140/65
--- NOTE | 2019-12-26 08:30 | NUR ---
ASSUMED PT. CARE AND RECEIVED REPORT AT 0730. PT A/OX4, VSS, PT. MED/SURG STATUS. PT. C/O PAIN IN LEFT HIP/BACK PAIN 11/03. DENIES ANY OTHER NEW SYMPTOMS. FULL ASSESSMENT COMPLETED, REFER TO CHARTING. CALL LIGHT IN REACH, WILL CONTINUE WITH PLAN OF CARE.
[2019-12-26 12:57] VITALS: BP 140/65
[2019-12-26 18:02] VITALS: BP 136/46
[2019-12-26 20:00] VITALS: BP 170/69
[2019-12-27 02:33] VITALS: BP 159/60
--- NOTE | 2019-12-27 05:42 | NUR ---
ASSESSMENT COMPLETED AT BEDSIDE, PLEASE REFER TO CHARTING FOR DETAILS. MEDICATIONS ADMINISTERED PER MAR. HOURLY ROUNDING FOR SAFETY. FALL PRECAUTIONS IN PLACE, BED ALARM IS ON AND CALL LIGHT WITHIN REACH. NO OTHER CONCERNS NOTED AT THIS TIME.
[2019-12-27 08:30] VITALS: BP 148/57
[2019-12-27 08:52] LABS: HEMATOCRIT 32.6 % (37.0-47.0); MCH 31.9 pg (26.0-34.0); MCHC 33.7 g/dL (28.0-37.0); MCV 94.6 fL (80.0-100.0); MPV 6.2 fl. (7.2-11.1); RBC 3.44 mil/uL (4.20-5.00); RDW-CV 14.9 % (10.5-14.5)
[2019-12-27 09:15] LABS: CALCIUM 7.8 mg/dL (8.5-10.1); CREATININE 1.3 mg/dL (0.6-1.3); MAGNESIUM 1.8 mg/dL (1.8-2.4); POTASSIUM 3.6 mmol/L (3.5-5.1)
[2019-12-27 14:49] VITALS: BP 112/62
[2019-12-27 18:47] VITALS: BP 142/54
[2019-12-27 19:45] VITALS: BP 143/57
[2019-12-28 00:37] VITALS: BP 1450/45
[2019-12-28 00:49] VITALS: BP 147/53
--- NOTE | 2019-12-28 05:10 | NUR ---
PT SLEPT ON AND OFF OVERNIGHT. TOPICAL MEDICATION, PO PAIN MED AND HEAT APPLICATION USED FOR CO L HIP PAIN. NO IV ACCESS. NO STOOLS OVERNIGHT, PT AWARE AND SIGNS UP INDICATING NEED FOR STOOL SPECIMEN. SP CONTACT ISOLATION IN PLACE PENDING STOOLSAMPLE AND RESULTS. AOX4, ABLE TO USE CALL LITE AND MAKE NEEDS KNOWN. ROOM AIR SAT 91-93%. MEDSURG STATUS. LUNGS COARSE AND OCC CONGESTED COUGH HEARD. PT HOPEFUL FOR DC HOME TOMORROW. NO LABS THIS MORNING.
[2019-12-28 08:00] VITALS: BP 152/59
[2019-12-28] MEDS ORDERED: PREDNISONE 10 M10 MG PO (10:14)
[2019-12-28] MEDS ORDERED: ACIDOPHILUS1 EAC4 PO (10:14)
[2019-12-28] MEDS ORDERED: LEVAQUIN 500 M500 M1 PO (10:14)
[2019-12-28 12:00] VITALS: BP 145/65
[2019-12-28 13:00] VITALS: BP 140/65
[2019-12-28 14:00] VITALS: BP 140/65
--- NOTE | 2019-12-28 15:39 | NUR ---
ALESHA faxed final orders/med list/dc summary to pt/family preference of [facility]. Pt dc home today with family.
== END 2019-12-28 14:20 | disposition home health service (06) | DRG 177 ==
LOC: M.ERS 10:03 → M.TBA-ER 12:58 → M.2W 12:58
PROVIDERS: Personal Emergency Response Attendant; ADMIT Internal Medicine; ATTEND Internal Medicine
DX: J15.6 Pneumonia due to other Gram-negative bacteria (principal); J96.01 Acute respiratory failure with hypoxia; J44.1 Chronic obstructive pulmonary disease with (acute) exacerbation; K56.600 Partial intestinal obstruction, unspecified as to cause; E87.1 Hypo-osmolality and hyponatremia; F11.20 Opioid dependence, uncomplicated; J44.0 Chronic obstructive pulmonary disease with (acute) lower respiratory infection; I12.9 Hypertensive chronic kidney disease with stage 1 through stage 4 chronic kidney disease, or unspecified chronic kidney disease; N18.3 Chronic kidney disease, stage 3 (moderate); E03.9 Hypothyroidism, unspecified; G89.29 Other chronic pain; F03.90 Unspecified dementia, unspecified severity, without behavioral disturbance, psychotic disturbance, mood disturbance, and anxiety; E11.51 Type 2 diabetes mellitus with diabetic peripheral angiopathy without gangrene; R19.7 Diarrhea, unspecified; Z88.1 Allergy status to other antibiotic agents; Z88.8 Allergy status to other drugs, medicaments and biological substances; Z79.899 Other long term (current) drug therapy; Z98.51 Tubal ligation status; Z90.49 Acquired absence of other specified parts of digestive tract; Z95.828 Presence of other vascular implants and grafts; Z86.718 Personal history of other venous thrombosis and embolism; Z98.49 Cataract extraction status, unspecified eye; Z03.818 Encounter for observation for suspected exposure to other biological agents ruled out

== ENCOUNTER 2020-05-04 09:23 | Inpatient (IN) | payer MEDICARE ==
[~2020-05-04] VITALS: Ht 154.9 cm; Wt 43.8 kg
--- NOTE | ~2020-05-04 | CON ---
[address] [address] CONSULTATION Name: CHAYO PRESTON Seth Room: [address] IN M.R.#: [id number] Admission: 05/04/20 Attend Phys: Lamont Montes, Discharge: Date of : 45 Report #: [id number] THIS REPORT FOR: cc: Aleksey,Luca BURLESON Mouse,Luca BURLESON ~ Irineo Sanchez DPM DATE OF SERVICE: 05/11/2020 CHIEF COMPLAINT: Consultation for painful lesion to the left plantar lateral heel. HISTORY OF PRESENT ILLNESS: The patient was admitted for COPD exacerbation and hyponatremia with nausea and vomiting. She had cough, nausea, abdominal pain and fever. She has extensive past medical history significant for peripheral arterial disease with a Doppler ultrasound findings suggestive of high-grade stenosis to the right and left iliac arteries, occlusion of the left superficial femoral and popliteal arteries with reconstitution of the posterior tibial artery. PHYSICAL EXAMINATION: There is a fissured callus to the left plantar lateral heel that is painful to palpation. The lesion measures roughly 0.6 x 0.2 x 0.1 cm. There is hyperkeratosis with a central fissure with no drainage, inflammation or cardinal signs of infection. Both feet are warm with dopplerable dorsalis pedis and posterior tibial pulses. Toenails are thickened, dystrophic without paronychia. No other lesions noted. IMPRESSION: Painful fissured callus to left plantar lateral heel, peripheral arterial disease. PLAN: I gently trimmed the callus and applied a bordered foam to the lesion. The patient will likely require periodic callus debridement for comfort. By: 1539 1552Dantoni Sanchez DPM /estephania
[~2020-05-04 09:23] MED LIST changes: +LEVAQUIN 500 M500 M1 PO
[2020-05-04 09:36] VITALS: BP 180/63
[2020-05-04 10:11] LABS: ABSOLUTE EOSINOPHILS 0.1 thou/uL (0.0-0.7); ABSOLUTE LYMPHOCYTES 2.1 thou/uL (0.8-5.3); ABSOLUTE MONOCYTES 0.8 thou/uL (0.0-1.2); ABSOLUTE NEUTROPHILS 6.8 thou/uL (1.6-8.1); BASOPHILS 0.4 %; EOSINOPHILS 1.2 %; HEMATOCRIT 34.4 % (37.0-47.0); HEMOGLOBIN 11.5 gm/dL (12.0-15.0); LYMPHOCYTES 21.6 %; MCH 32.5 pg (26.0-34.0); MCHC 33.5 g/dL (28.0-37.0); MCV 96.9 fL (80.0-100.0); MONOCYTES 7.8 %; MPV 6.1 fl. (7.2-11.1); NUCLEATED RBCS 0 /100WBC; PLATELET COUNT* 368 thou/uL (150-400); RBC 3.55 mil/uL (4.20-5.00); RDW-CV 13.6 % (10.5-14.5); WBC 9.9 thou/uL (4.0-11.0)
[2020-05-04 10:21] LABS: CALCIUM 9.1 mg/dL (8.5-10.1); CREATININE 1.4 mg/dL (0.6-1.3); POTASSIUM 5.2 mmol/L (3.5-5.1)
[2020-05-04 10:31] LABS: ALBUMIN 3.5 g/dL (3.4-5.0); TOTAL BILIRUBIN 0.4 mg/dL (<0.1-1.0); TOTAL PROTEIN 7.6 g/dL (6.4-8.2)
[2020-05-04 11:43] LABS: INFLUENZA A ANTIGEN Negative (Negative); INFLUENZA B ANTIGEN Negative (Negative)
[2020-05-04 13:30] LABS: URINE BILIRUBIN NEGATIVE (Negative); URINE BLOOD NEGATIVE (Negative); URINE CLARITY CLEAR; URINE COLOR YELLOW; URINE GLUCOSE-RANDOM NEGATIVE (Negative); URINE KETONES NEGATIVE (Negative); URINE LEUKOCYTES-REFLEX NEGATIVE (Negative); URINE NITRITE-REFLEX NEGATIVE (Negative); URINE PROTEIN NEGATIVE (Negative); URINE UROBILINOGEN 0.2 E.U./dl (0.2-1.0)
[2020-05-04 15:29] VITALS: BP 132/51
[2020-05-04 17:00] VITALS: BP 130/62
--- NOTE | 2020-05-04 17:12 | EKG ---
[place] [address] ELECTROCARDIOGRAM REPORT Name: CHAYO PRESTON Room: [address] ADM IN .R.#: [id number] Admission: 05/04/20 Attend Phys: Lamont Bailey Discharge: Date of : 45 Date of Service: 05/04/20 1015 Report #: [id number] THIS REPORT FOR: //name// [facility] ED Test Date: 2020-05-04 Test Time: 10:15:54 Pat Name: CHAYO PRESTON Department: Room: [facility] Gender: F Manager Training: SHEREES : 1945 Requested By: Celio Barrett Order Number: [id number] MD: Ismael Zhang Measurements Intervals [place] Rate: 85 P: 50 MD: 146 QRS: -35 QRSD: 100 T: 92 QT: 336 QTc: 400 Interpretive Statements Sinus rhythm poor r wave progression Inferior infarct, old Lateral leads are also involved Compared to ECG 12/21/2019 10:35:07 Short MD interval no longer present Myocardial infarct finding still present Electronically Signed On 05-04-2020 17:12:10 COMPENSATION ANALYST by Ismael Zhang [email or web address] <ELECTRONICALLY SIGNED> By: Ismael Zhang MD, FACC 05/04/20 1712 1015 1015 Ismael Zhang MD, FACC /EPI
[2020-05-04 18:00] VITALS: BP 156/44
[2020-05-04 20:20] VITALS: BP 122/55
[2020-05-05 00:22] VITALS: BP 122/48
[2020-05-05 04:30] LABS: HEMATOCRIT 33.8 % (37.0-47.0); HEMOGLOBIN 11.3 gm/dL (12.0-15.0); MCH 32.6 pg (26.0-34.0); MCHC 33.4 g/dL (28.0-37.0); MCV 97.5 fL (80.0-100.0); MPV 6.5 fl. (7.2-11.1); RBC 3.46 mil/uL (4.20-5.00); RDW-CV 13.9 % (10.5-14.5); WBC 9.1 thou/uL (4.0-11.0)
[2020-05-05 05:08] LABS: ALBUMIN 2.8 g/dL (3.4-5.0); CALCIUM 8.3 mg/dL (8.5-10.1); CREATININE 0.9 mg/dL (0.6-1.3); MAGNESIUM 1.4 mg/dL (1.8-2.4); POTASSIUM 4.5 mmol/L (3.5-5.1); TOTAL BILIRUBIN 0.3 mg/dL (<0.1-1.0); TOTAL PROTEIN 6.4 g/dL (6.4-8.2)
[2020-05-05 05:18] VITALS: BP 131/71
[2020-05-05 08:00] VITALS: BP 142/64
[2020-05-05 10:05] LABS: CALCIUM 8.5 mg/dL (8.5-10.1); POTASSIUM 4.5 mmol/L (3.5-5.1)
[2020-05-05 10:08] LABS: PHOSPHORUS* 3.6 mg/dL (2.5-4.9)
[2020-05-05 11:52] VITALS: BP 147/59
[2020-05-05 16:30] VITALS: BP 123/58
[2020-05-05 20:10] VITALS: BP 150/62
[2020-05-06 00:09] VITALS: BP 96/41
[2020-05-06 04:48] VITALS: BP 127/77
[2020-05-06 07:30] VITALS: BP 144/46
[2020-05-06 11:42] VITALS: BP 122/53
[2020-05-06 16:00] VITALS: BP 119/60
[2020-05-06 19:40] VITALS: BP 119/52
[2020-05-07 00:05] VITALS: BP 123/67
[2020-05-07 04:05] VITALS: BP 113/59
[2020-05-07 04:19] LABS: HEMATOCRIT 26.8 % (37.0-47.0); MCH 32.6 pg (26.0-34.0); MCV 98.6 fL (80.0-100.0); MPV 6.1 fl. (7.2-11.1); RBC 2.72 mil/uL (4.20-5.00); RDW-CV 13.9 % (10.5-14.5); WBC 5.8 thou/uL (4.0-11.0)
[2020-05-07 04:48] LABS: ALBUMIN 2.5 g/dL (3.4-5.0); CALCIUM 7.3 mg/dL (8.5-10.1); CREATININE 0.9 mg/dL (0.6-1.3); MAGNESIUM 1.3 mg/dL (1.8-2.4); POTASSIUM 4.5 mmol/L (3.5-5.1); TOTAL BILIRUBIN 0.2 mg/dL (<0.1-1.0); TOTAL PROTEIN 5.5 g/dL (6.4-8.2)
[2020-05-07 04:56] LABS: HEMOGLOBIN 8.8 gm/dL (12.0-15.0)
[2020-05-07 08:00] VITALS: BP 146/60
[2020-05-07 11:00] VITALS: BP 126/66
[2020-05-07 16:00] VITALS: BP 134/67
[2020-05-07 20:00] VITALS: BP 133/54
[2020-05-08] VITALS: BP 133/54
[2020-05-08 02:52] LABS: CALCIUM 7.5 mg/dL (8.5-10.1); CREATININE 0.9 mg/dL (0.6-1.3); MAGNESIUM 1.3 mg/dL (1.8-2.4); POTASSIUM 4.3 mmol/L (3.5-5.1)
[2020-05-08 04:00] VITALS: BP 127/44
[2020-05-08 06:06] LABS: HBsAG-EMPLOYEE EXPOSURE Negative (Negative)
[2020-05-08 08:00] VITALS: BP 135/75
[2020-05-08 12:00] VITALS: BP 135/72
[2020-05-08 16:00] VITALS: BP 154/59
[2020-05-08 19:20] VITALS: BP 146/62
[2020-05-09] VITALS: BP 161/60
[2020-05-09 04:00] VITALS: BP 151/58
[2020-05-09 04:24] LABS: HEMATOCRIT 30.7 % (37.0-47.0); HEMOGLOBIN 10.4 gm/dL (12.0-15.0); MCHC 33.8 g/dL (28.0-37.0); MCV 97.4 fL (80.0-100.0); MPV 5.8 fl. (7.2-11.1); RBC 3.15 mil/uL (4.20-5.00); RDW-CV 13.9 % (10.5-14.5); WBC 6.5 thou/uL (4.0-11.0)
[2020-05-09 04:45] LABS: CALCIUM 7.9 mg/dL (8.5-10.1); MAGNESIUM 2.6 mg/dL (1.8-2.4); POTASSIUM 4.4 mmol/L (3.5-5.1); TOTAL BILIRUBIN 0.3 mg/dL (<0.1-1.0); TOTAL PROTEIN 6.6 g/dL (6.4-8.2)
[2020-05-09 08:00] VITALS: BP 134/55
[2020-05-09 12:08] VITALS: BP 122/60
[2020-05-09 17:00] VITALS: BP 121/53
[2020-05-09 23:46] VITALS: BP 127/56
[2020-05-10 08:00] VITALS: BP 147/81
[2020-05-10 11:00] VITALS: BP 130/78; BP 136/88
[2020-05-10 17:10] VITALS: BP 127/68
[2020-05-10 20:15] VITALS: BP 125/84
[2020-05-11 00:17] VITALS: BP 126/46
[2020-05-11 04:07] LABS: HEMATOCRIT 27.5 % (37.0-47.0); HEMOGLOBIN 9.5 gm/dL (12.0-15.0); MCHC 34.4 g/dL (28.0-37.0); MPV 6.2 fl. (7.2-11.1); RBC 2.86 mil/uL (4.20-5.00); RDW-CV 13.4 % (10.5-14.5)
[2020-05-11 04:44] LABS: CALCIUM 8.5 mg/dL (8.5-10.1); MAGNESIUM 2.4 mg/dL (1.8-2.4); POTASSIUM 4.7 mmol/L (3.5-5.1); TOTAL BILIRUBIN 0.3 mg/dL (<0.1-1.0); TOTAL PROTEIN 6.8 g/dL (6.4-8.2)
[2020-05-11 08:00] VITALS: BP 142/60
[2020-05-11 16:19] VITALS: BP 125/53
[2020-05-11 19:49] VITALS: BP 142/45
[2020-05-12 05:30] VITALS: BP 125/42
[2020-05-12 05:55] LABS: CALCIUM 8.6 mg/dL (8.5-10.1); CREATININE 1.1 mg/dL (0.6-1.3); MAGNESIUM 2.2 mg/dL (1.8-2.4); POTASSIUM 4.2 mmol/L (3.5-5.1)
[2020-05-12 08:15] VITALS: BP 142/46
[2020-05-12 16:40] VITALS: BP 108/50
[2020-05-12 20:57] VITALS: BP 130/49
[2020-05-13 05:29] LABS: CALCIUM 8.1 mg/dL (8.5-10.1); CREATININE 1.3 mg/dL (0.6-1.3); MAGNESIUM 2.2 mg/dL (1.8-2.4); POTASSIUM 4.6 mmol/L (3.5-5.1)
[2020-05-13] MEDS ORDERED: PREDNISONE 10 M10 MG PO (07:32)
[2020-05-13] MEDS ORDERED: CEFDINIR300 MG PO (07:32)
[2020-05-13] MEDS ORDERED: TESSALON PERLE100 MG PO (07:32)
[2020-05-13 07:45] VITALS: BP 138/54
[2020-05-13 13:05] VITALS: BP 130/49
[2020-05-13 15:28] VITALS: BP 136/50
[2020-05-13 17:47] VITALS: BP 130/49
== END 2020-05-13 17:01 | disposition home or self-care (01) | DRG 177 ==
LOC: M.ERS 09:23 → M.2W 11:26 → M.TBA-ER 11:26 → M.2W 17:10 → M.3W 05-11 15:38
PROVIDERS: Emergency Medicine Emergency Medical Services; Internal Medicine; ADMIT Family Medicine; ATTEND Family Medicine
DX: J15.6 Pneumonia due to other Gram-negative bacteria (principal); N17.0 Acute kidney failure with tubular necrosis; E43 Unspecified severe protein-calorie malnutrition; E87.1 Hypo-osmolality and hyponatremia; F11.20 Opioid dependence, uncomplicated; J44.1 Chronic obstructive pulmonary disease with (acute) exacerbation; J44.0 Chronic obstructive pulmonary disease with (acute) lower respiratory infection; Z68.1 Body mass index [BMI] 19.9 or less, adult; I12.9 Hypertensive chronic kidney disease with stage 1 through stage 4 chronic kidney disease, or unspecified chronic kidney disease; N18.30 Chronic kidney disease, stage 3 unspecified; F03.90 Unspecified dementia, unspecified severity, without behavioral disturbance, psychotic disturbance, mood disturbance, and anxiety; M25.559 Pain in unspecified hip; G89.29 Other chronic pain; E87.5 Hyperkalemia; L84 Corns and callosities; Z20.828 Contact with and (suspected) exposure to other viral communicable diseases; M19.90 Unspecified osteoarthritis, unspecified site; E83.42 Hypomagnesemia; M54.9 Dorsalgia, unspecified; I70.203 Unspecified atherosclerosis of native arteries of extremities, bilateral legs; Z79.899 Other long term (current) drug therapy; Z90.49 Acquired absence of other specified parts of digestive tract; Z86.718 Personal history of other venous thrombosis and embolism; Z88.8 Allergy status to other drugs, medicaments and biological substances; Z88.1 Allergy status to other antibiotic agents; Z88.2 Allergy status to sulfonamides; Z87.891 Personal history of nicotine dependence

== ENCOUNTER 2020-08-16 14:46 | Inpatient (IN) | payer MEDICARE ==
[~2020-08-16] VITALS: Ht 124.5 cm; Wt 46.7 kg
[2020-08-16 14:56] VITALS: BP 162/61
[2020-08-16] MEDS ORDERED: PERCOCET 5-3251 EACH PO (15:07)
[2020-08-16] MEDS ORDERED: PLAVIX 75 MG TA75 MG PO (15:08)
[2020-08-16] MEDS ORDERED: ZESTRIL40 MG PO (15:08)
[2020-08-16 16:07] LABS: URINE BILIRUBIN NEGATIVE (Negative); URINE BLOOD NEGATIVE (Negative); URINE CLARITY CLEAR; URINE COLOR YELLOW; URINE GLUCOSE-RANDOM NEGATIVE (Negative); URINE KETONES NEGATIVE (Negative); URINE LEUKOCYTES-REFLEX NEGATIVE (Negative); URINE NITRITE-REFLEX NEGATIVE (Negative); URINE PROTEIN NEGATIVE (Negative); URINE UROBILINOGEN 0.2 E.U./dl (0.2-1.0)
[2020-08-16 16:16] LABS: HEMATOCRIT 32.2 % (37.0-47.0); HEMOGLOBIN 10.7 gm/dL (12.0-15.0); MCH 32.3 pg (26.0-34.0); MCHC 33.3 g/dL (28.0-37.0); MPV 6.1 fl. (7.2-11.1); NUCLEATED RBCS 0 /100WBC; PLATELET COUNT* 359 thou/uL (150-400); RBC 3.32 mil/uL (4.20-5.00); RDW-CV 14.3 % (10.5-14.5); WBC 17.9 thou/uL (4.0-11.0)
[2020-08-16 16:24] LABS: CALCIUM 9.3 mg/dL (8.5-10.1); CREATININE 1.3 mg/dL (0.6-1.3)
[2020-08-16 16:35] LABS: ALBUMIN 3.5 g/dL (3.4-5.0); TOTAL BILIRUBIN 0.4 mg/dL (<0.1-1.0); TOTAL PROTEIN 7.2 g/dL (6.4-8.2)
[2020-08-16 17:07] LABS: ABSOLUTE LYMPHOCYTES 2.5 thou/uL (0.8-5.3); ABSOLUTE MONOCYTES 0.5 thou/uL (0.0-1.2); ABSOLUTE NEUTROPHILS 14.9 thou/uL (1.6-8.1); PLATELET ESTIMATE ADEQUATE
[2020-08-16 18:10] VITALS: BP 113/69
[2020-08-16 20:00] VITALS: BP 147/55
[2020-08-17 04:00] VITALS: BP 114/38
[2020-08-17 05:39] LABS: HEMATOCRIT 29.5 % (37.0-47.0); HEMOGLOBIN 9.7 gm/dL (12.0-15.0); MCH 31.7 pg (26.0-34.0); MCHC 32.8 g/dL (28.0-37.0); MCV 96.6 fL (80.0-100.0); MPV 6.3 fl. (7.2-11.1); RBC 3.06 mil/uL (4.20-5.00); RDW-CV 14.7 % (10.5-14.5)
[2020-08-17 05:45] LABS: CALCIUM 8.7 mg/dL (8.5-10.1); MAGNESIUM 1.7 mg/dL (1.8-2.4); POTASSIUM 4.3 mmol/L (3.5-5.1)
[2020-08-17 08:00] VITALS: BP 135/75
--- NOTE | 2020-08-17 10:08 | EKG ---
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 : 1945 Requested By: Monica Wahl Order Number: [id number] MD: Zachary Burkett Measurements Intervals [place] Rate: 76 P: 52 PA: 149 QRS: -28 QRSD: 89 T: 56 QT: 414 QTc: 466 Interpretive Statements Sinus rhythm Borderline left axis deviation Compared to ECG 05/04/2020 10:15:54 Poor R-wave progression no longer present Myocardial infarct finding no longer present Electronically Signed On 08-17-2020 10:08:20 CDT by Zachary Burkett [email or web address] <ELECTRONICALLY SIGNED> By: Zachary Burkett MD, FACC 08/17/20 1008 1514 1514 Zachary Burkett MD, FAC /EPI
[2020-08-17 12:00] VITALS: BP 128/36
[2020-08-17 17:35] VITALS: BP 134/45
[2020-08-17 21:00] VITALS: BP 115/40
[2020-08-18 08:00] VITALS: BP 105/39
[2020-08-18 15:24] VITALS: BP 115/34
[2020-08-18 20:00] VITALS: BP 144/76
[2020-08-19 04:25] LABS: HEMATOCRIT 29.3 % (37.0-47.0); HEMOGLOBIN 9.6 gm/dL (12.0-15.0); MCH 31.6 pg (26.0-34.0); MCHC 32.9 g/dL (28.0-37.0); MCV 96.1 fL (80.0-100.0); MPV 6.8 fl. (7.2-11.1); RBC 3.05 mil/uL (4.20-5.00); RDW-CV 14.7 % (10.5-14.5); WBC 13.8 thou/uL (4.0-11.0)
[2020-08-19 04:50] LABS: CALCIUM 8.8 mg/dL (8.5-10.1); CREATININE 1.3 mg/dL (0.6-1.3); MAGNESIUM 1.9 mg/dL (1.8-2.4); POTASSIUM 3.9 mmol/L (3.5-5.1); TOTAL BILIRUBIN 0.2 mg/dL (<0.1-1.0); TOTAL PROTEIN 6.2 g/dL (6.4-8.2)
[2020-08-19 07:50] VITALS: BP 140/41
[2020-08-19 16:00] VITALS: BP 116/38
[2020-08-19 17:42] VITALS: BP 116/38
[2020-08-19 21:12] VITALS: BP 91/70
[2020-08-20 04:51] LABS: HEMATOCRIT 25.5 % (37.0-47.0); HEMOGLOBIN 8.6 gm/dL (12.0-15.0); MCH 31.8 pg (26.0-34.0); MCHC 33.7 g/dL (28.0-37.0); MCV 94.4 fL (80.0-100.0); MPV 6.4 fl. (7.2-11.1); RBC 2.7 mil/uL (4.20-5.00); RDW-CV 14.4 % (10.5-14.5); WBC 13.5 thou/uL (4.0-11.0)
[2020-08-20 05:01] LABS: ALBUMIN 2.9 g/dL (3.4-5.0); CALCIUM 8.5 mg/dL (8.5-10.1); CREATININE 1.6 mg/dL (0.6-1.3); MAGNESIUM 1.8 mg/dL (1.8-2.4); POTASSIUM 4.7 mmol/L (3.5-5.1); TOTAL BILIRUBIN 0.2 mg/dL (<0.1-1.0); TOTAL PROTEIN 5.8 g/dL (6.4-8.2)
[2020-08-20 10:41] VITALS: BP 115/38
[2020-08-20 21:00] VITALS: BP 126/44
[2020-08-21 05:41] LABS: CALCIUM 8.2 mg/dL (8.5-10.1); CREATININE 1.5 mg/dL (0.6-1.3); MAGNESIUM 2.2 mg/dL (1.8-2.4); POTASSIUM 5.5 mmol/L (3.5-5.1)
[2020-08-21 05:56] LABS: HEMATOCRIT 26.5 % (37.0-47.0); HEMOGLOBIN 8.7 gm/dL (12.0-15.0); MCH 31.6 pg (26.0-34.0); MCHC 32.9 g/dL (28.0-37.0); MPV 6.7 fl. (7.2-11.1); RBC 2.76 mil/uL (4.20-5.00); RDW-CV 14.7 % (10.5-14.5); WBC 11.9 thou/uL (4.0-11.0)
[2020-08-21 11:28] VITALS: BP 140/51
[2020-08-21 20:38] VITALS: BP 133/38
[2020-08-22] MEDS ORDERED: DOXYCYCLINE 10100 MG PO (07:25)
[2020-08-22] MEDS ORDERED: BENZONATATE100 MG PO (07:25)
[2020-08-22] MEDS ORDERED: PREDNISONE 10 M10 MG PO (07:25)
[2020-08-22] MEDS ORDERED: FLUCONAZOLE 10100 MG PO (07:25)
[2020-08-22] MEDS ORDERED: CEFDINIR300 MG PO (07:25)
[2020-08-22] MEDS ORDERED: NYSTATIN15 G3 TOP (07:35)
[2020-08-22] MEDS ORDERED: PERCOCET 5-3251 EACH PO (07:40)
[2020-08-22 08:15] VITALS: BP 144/50
[2020-08-22 11:38] VITALS: BP 116/38
== END 2020-08-22 13:10 | disposition home or self-care (01) | DRG 178 ==
LOC: M.ERS 14:46 → M.2W 16:41 → M.TBA-ER 16:41 → M.2W 18:33 → M.ORTHSURG 08-17 15:39
PROVIDERS: Internal Medicine; Nurse Practitioner Family; ADMIT Internal Medicine; ATTEND Internal Medicine
DX: J15.6 Pneumonia due to other Gram-negative bacteria (principal); R65.10 Systemic inflammatory response syndrome (SIRS) of non-infectious origin without acute organ dysfunction; J44.1 Chronic obstructive pulmonary disease with (acute) exacerbation; J44.0 Chronic obstructive pulmonary disease with (acute) lower respiratory infection; E87.1 Hypo-osmolality and hyponatremia; N18.30 Chronic kidney disease, stage 3 unspecified; D72.829 Elevated white blood cell count, unspecified; G89.29 Other chronic pain; M19.90 Unspecified osteoarthritis, unspecified site; I70.202 Unspecified atherosclerosis of native arteries of extremities, left leg; I12.9 Hypertensive chronic kidney disease with stage 1 through stage 4 chronic kidney disease, or unspecified chronic kidney disease; F03.90 Unspecified dementia, unspecified severity, without behavioral disturbance, psychotic disturbance, mood disturbance, and anxiety; B37.9 Candidiasis, unspecified; Z20.822 Contact with and (suspected) exposure to COVID-19; Z86.718 Personal history of other venous thrombosis and embolism; Z90.49 Acquired absence of other specified parts of digestive tract; Z98.49 Cataract extraction status, unspecified eye; Z79.899 Other long term (current) drug therapy; Z79.01 Long term (current) use of anticoagulants; Z88.8 Allergy status to other drugs, medicaments and biological substances; Z88.2 Allergy status to sulfonamides; Z88.1 Allergy status to other antibiotic agents

== ENCOUNTER 2020-08-24 09:26 | Inpatient (IN) | payer MEDICARE ==
[~2020-08-24] VITALS: Ht 160 cm; Wt 45.0 kg
[~2020-08-24 09:26] MED LIST changes: +BENZONATATE100 MG PO; +FLUCONAZOLE 10100 MG PO; +NYSTATIN15 G3 TOP; +PERCOCET 5-3251 EACH PO; +PLAVIX 75 MG TA75 MG PO; +ZESTRIL40 MG PO
[2020-08-24 09:44] VITALS: BP 168/47
[2020-08-24 10:57] LABS: HEMATOCRIT 35.2 % (37.0-47.0); HEMOGLOBIN 11.7 gm/dL (12.0-15.0); MCH 31.7 pg (26.0-34.0); MCHC 33.2 g/dL (28.0-37.0); MCV 95.4 fL (80.0-100.0); MPV 6.2 fl. (7.2-11.1); NUCLEATED RBCS 0 /100WBC; PLATELET COUNT* 444 thou/uL (150-400); RBC 3.69 mil/uL (4.20-5.00); RDW-CV 14.5 % (10.5-14.5); WBC 13.6 thou/uL (4.0-11.0)
[2020-08-24 11:05] LABS: CALCIUM 8.8 mg/dL (8.5-10.1); CREATININE 1.3 mg/dL (0.6-1.3); POTASSIUM 4.1 mmol/L (3.5-5.1)
[2020-08-24 11:10] LABS: ALBUMIN 3.5 g/dL (3.4-5.0); TOTAL BILIRUBIN 0.4 mg/dL (<0.1-1.0); TOTAL PROTEIN 6.6 g/dL (6.4-8.2)
[2020-08-24 11:40] LABS: ABSOLUTE EOSINOPHILS 0.4 thou/uL (0.0-0.7); ABSOLUTE LYMPHOCYTES 3.3 thou/uL (0.8-5.3); ABSOLUTE MONOCYTES 0.7 thou/uL (0.0-1.2); ABSOLUTE NEUTROPHILS 9.2 thou/uL (1.6-8.1)
[2020-08-24 11:41] LABS: PLATELET ESTIMATE ADEQUATE
[2020-08-24 17:30] VITALS: BP 167/65
[2020-08-24 19:49] LABS: URINE BILIRUBIN NEGATIVE (Negative); URINE BLOOD NEGATIVE (Negative); URINE CLARITY CLEAR; URINE COLOR YELLOW; URINE GLUCOSE-RANDOM NEGATIVE (Negative); URINE KETONES NEGATIVE (Negative); URINE LEUKOCYTES-REFLEX NEGATIVE (Negative); URINE NITRITE-REFLEX NEGATIVE (Negative); URINE PROTEIN NEGATIVE (Negative); URINE UROBILINOGEN 0.2 E.U./dl (0.2-1.0)
[2020-08-24 20:00] VITALS: BP 148/56
[2020-08-24 21:00] VITALS: BP 137/53
[2020-08-25 04:35] LABS: HEMATOCRIT 29.2 % (37.0-47.0); MCH 31.9 pg (26.0-34.0); MCHC 33.2 g/dL (28.0-37.0); MCV 95.8 fL (80.0-100.0); MPV 6.1 fl. (7.2-11.1); RBC 3.04 mil/uL (4.20-5.00); RDW-CV 14.6 % (10.5-14.5); WBC 12.4 thou/uL (4.0-11.0)
[2020-08-25 05:11] LABS: ALBUMIN 2.7 g/dL (3.4-5.0); CALCIUM 8.2 mg/dL (8.5-10.1); HEMOGLOBIN 9.7 gm/dL (12.0-15.0); POTASSIUM 4.8 mmol/L (3.5-5.1); TOTAL BILIRUBIN 0.4 mg/dL (<0.1-1.0); TOTAL PROTEIN 5.5 g/dL (6.4-8.2)
[2020-08-25 05:20] VITALS: BP 118/41
[2020-08-25 08:00] VITALS: BP 137/39
[2020-08-25 16:17] LABS: HEMATOCRIT 30.3 % (37.0-47.0); MCH 31.8 pg (26.0-34.0); MCV 96.4 fL (80.0-100.0); MPV 6.1 fl. (7.2-11.1); NUCLEATED RBCS 0 /100WBC; PLATELET COUNT* 353 thou/uL (150-400); RBC 3.14 mil/uL (4.20-5.00); RDW-CV 14.8 % (10.5-14.5); WBC 14.9 thou/uL (4.0-11.0)
[2020-08-25 16:51] LABS: ABSOLUTE MONOCYTES 0.4 thou/uL (0.0-1.2); ABSOLUTE NEUTROPHILS 13.4 thou/uL (1.6-8.1); PLATELET ESTIMATE ADEQUATE
[2020-08-25 19:45] VITALS: BP 134/50
[2020-08-26 05:30] VITALS: BP 144/50
[2020-08-26 07:45] VITALS: BP 115/40
[2020-08-26 08:48] LABS: ABSOLUTE EOSINOPHILS 0.1 thou/uL (0.0-0.7); ABSOLUTE LYMPHOCYTES 1.4 thou/uL (0.8-5.3); ABSOLUTE MONOCYTES 0.6 thou/uL (0.0-1.2); ABSOLUTE NEUTROPHILS 7.3 thou/uL (1.6-8.1); BASOPHILS 0.2 %; EOSINOPHILS 1.5 %; HEMATOCRIT 27.4 % (37.0-47.0); HEMOGLOBIN 9.2 gm/dL (12.0-15.0); MCHC 33.6 g/dL (28.0-37.0); MCV 95.1 fL (80.0-100.0); MPV 6.4 fl. (7.2-11.1); NUCLEATED RBCS 0 /100WBC; PLATELET COUNT* 338 thou/uL (150-400); POLYS 77.3 %; RBC 2.88 mil/uL (4.20-5.00); RDW-CV 15.1 % (10.5-14.5); WBC 9.5 thou/uL (4.0-11.0)
[2020-08-26 08:51] LABS: CALCIUM 8.3 mg/dL (8.5-10.1); CREATININE 1.3 mg/dL (0.6-1.3)
[2020-08-26 20:41] VITALS: BP 123/53
[2020-08-27 04:16] LABS: HEMATOCRIT 28.6 % (37.0-47.0); HEMOGLOBIN 9.6 gm/dL (12.0-15.0); MCHC 33.6 g/dL (28.0-37.0); MCV 95.5 fL (80.0-100.0); RBC 2.99 mil/uL (4.20-5.00); RDW-CV 14.7 % (10.5-14.5)
[2020-08-27 04:29] LABS: CALCIUM 7.4 mg/dL (8.5-10.1); CREATININE 1.3 mg/dL (0.6-1.3); POTASSIUM 3.8 mmol/L (3.5-5.1); WBC 28.1 thou/uL (4.0-11.0)
[2020-08-27 07:35] VITALS: BP 125/46
[2020-08-27 20:00] VITALS: BP 141/51; BP 150/72
[2020-08-28 07:55] VITALS: BP 136/52
[2020-08-28 12:39] LABS: HEMATOCRIT 31.1 % (37.0-47.0); MCH 31.5 pg (26.0-34.0); MCHC 32.3 g/dL (28.0-37.0); MCV 97.3 fL (80.0-100.0); MPV 6.5 fl. (7.2-11.1); RBC 3.19 mil/uL (4.20-5.00); RDW-CV 15.1 % (10.5-14.5); WBC 15.1 thou/uL (4.0-11.0)
[2020-08-28 12:50] LABS: CALCIUM 8.6 mg/dL (8.5-10.1); CREATININE 1.3 mg/dL (0.6-1.3); POTASSIUM 3.3 mmol/L (3.5-5.1)
[2020-08-28 15:48] VITALS: BP 115/46
[2020-08-28 20:00] VITALS: BP 131/56
[2020-08-29 04:31] LABS: ABSOLUTE EOSINOPHILS 0.1 thou/uL (0.0-0.7); ABSOLUTE LYMPHOCYTES 1.4 thou/uL (0.8-5.3); ABSOLUTE MONOCYTES 0.5 thou/uL (0.0-1.2); ABSOLUTE NEUTROPHILS 11.4 thou/uL (1.6-8.1); BASOPHILS 0.3 %; EOSINOPHILS 0.7 %; HEMATOCRIT 24.8 % (37.0-47.0); HEMOGLOBIN 8.2 gm/dL (12.0-15.0); LYMPHOCYTES 10.3 %; MCH 31.8 pg (26.0-34.0); MCHC 33.2 g/dL (28.0-37.0); MCV 95.8 fL (80.0-100.0); MONOCYTES 4.1 %; MPV 6.7 fl. (7.2-11.1); NUCLEATED RBCS 0 /100WBC; PLATELET COUNT* 202 thou/uL (150-400); POLYS 84.6 %; RBC 2.59 mil/uL (4.20-5.00); RDW-CV 15.2 % (10.5-14.5); WBC 13.5 thou/uL (4.0-11.0)
[2020-08-29 04:53] LABS: CALCIUM 7.6 mg/dL (8.5-10.1); CREATININE 1.2 mg/dL (0.6-1.3); POTASSIUM 3.4 mmol/L (3.5-5.1)
[2020-08-29 08:00] VITALS: BP 130/70
[2020-08-29 16:00] VITALS: BP 142/92
[2020-08-29 20:00] VITALS: BP 105/48
[2020-08-29 23:26] VITALS: BP 101/47
[2020-08-30 04:52] LABS: ABSOLUTE EOSINOPHILS 0.1 thou/uL (0.0-0.7); ABSOLUTE LYMPHOCYTES 1.3 thou/uL (0.8-5.3); ABSOLUTE MONOCYTES 0.5 thou/uL (0.0-1.2); ABSOLUTE NEUTROPHILS 7.1 thou/uL (1.6-8.1); BASOPHILS 0.2 %; EOSINOPHILS 0.7 %; HEMOGLOBIN 9.2 gm/dL (12.0-15.0); LYMPHOCYTES 14.8 %; MCH 32.4 pg (26.0-34.0); MCHC 34.2 g/dL (28.0-37.0); MPV 6.5 fl. (7.2-11.1); NUCLEATED RBCS 0 /100WBC; PLATELET COUNT* 186 thou/uL (150-400); POLYS 78.3 %; RBC 2.85 mil/uL (4.20-5.00); RDW-CV 14.7 % (10.5-14.5); WBC 9.1 thou/uL (4.0-11.0)
[2020-08-30 04:55] LABS: CALCIUM 8.5 mg/dL (8.5-10.1); CREATININE 1.1 mg/dL (0.6-1.3)
[2020-08-30 08:00] VITALS: BP 133/52
[2020-08-30 15:37] VITALS: BP 122/55
[2020-08-30 20:50] VITALS: BP 138/75
[2020-08-31 08:45] VITALS: BP 133/50
[2020-08-31 20:00] VITALS: BP 147/56
[2020-08-31 23:12] LABS: INFLUENZA A ANTIGEN Negative (Negative); INFLUENZA B ANTIGEN Negative (Negative)
[2020-09-01 07:40] VITALS: BP 133/43
[2020-09-01] MEDS ORDERED: LEVOFLOXACIN750 MG PO (08:12)
[2020-09-01] MEDS ORDERED: PREDNISONE 10 M10 MG PO (08:12)
[2020-09-01] MEDS ORDERED: NYSTATIN100000 UNI SW&SWALLOW (08:12)
[2020-09-01 12:44] VITALS: BP 133/43
[2020-09-01 13:28] VITALS: BP 133/43
== END 2020-09-01 13:05 | disposition home or self-care (01) | DRG 871 ==
LOC: M.ERS 09:26 → M.ORTHSURG 13:06 → M.TBA-ER 13:06 → M.ORTHSURG 19:58 → M.2W 08-29 17:47 → M.ORTHSURG 08-30 19:23
PROVIDERS: Internal Medicine; Nurse Practitioner; ADMIT Internal Medicine; ATTEND Internal Medicine
PROC: 05HY33Z Insertion of Infusion Device into Upper Vein, Percutaneous Approach (ICD-10-PCS; principal; 2020-08-24)
DX: A41.9 Sepsis, unspecified organism (principal); J15.6 Pneumonia due to other Gram-negative bacteria; J96.01 Acute respiratory failure with hypoxia; E43 Unspecified severe protein-calorie malnutrition; J44.0 Chronic obstructive pulmonary disease with (acute) lower respiratory infection; Z68.1 Body mass index [BMI] 19.9 or less, adult; Z20.822 Contact with and (suspected) exposure to COVID-19; G89.29 Other chronic pain; M25.559 Pain in unspecified hip; N18.30 Chronic kidney disease, stage 3 unspecified; F03.90 Unspecified dementia, unspecified severity, without behavioral disturbance, psychotic disturbance, mood disturbance, and anxiety; D72.829 Elevated white blood cell count, unspecified; G62.9 Polyneuropathy, unspecified; J84.10 Pulmonary fibrosis, unspecified; D64.9 Anemia, unspecified; I12.9 Hypertensive chronic kidney disease with stage 1 through stage 4 chronic kidney disease, or unspecified chronic kidney disease; I73.9 Peripheral vascular disease, unspecified; M54.9 Dorsalgia, unspecified; E03.9 Hypothyroidism, unspecified; Z95.820 Peripheral vascular angioplasty status with implants and grafts; Z98.49 Cataract extraction status, unspecified eye; Z86.718 Personal history of other venous thrombosis and embolism; Z88.6 Allergy status to analgesic agent; Z88.1 Allergy status to other antibiotic agents; Z88.2 Allergy status to sulfonamides; Z88.8 Allergy status to other drugs, medicaments and biological substances; Z87.891 Personal history of nicotine dependence; Z79.891 Long term (current) use of opiate analgesic; Z90.49 Acquired absence of other specified parts of digestive tract

== ENCOUNTER 2020-10-07 09:12 | Emergency (ER) | payer MEDICARE ==
[~2020-10-07] VITALS: Ht 152.4 cm; Wt 39.9 kg
[~2020-10-07 09:12] MED LIST changes: +LEVOFLOXACIN750 MG PO; +NYSTATIN100000 UNI SW&SWALLOW
[2020-10-07] MEDS ORDERED: HYDROCODON-ACE1 EA11 PO (09:58)
[2020-10-07 10:06] VITALS: BP 132/67
== END 2020-10-07 10:07 | disposition home or self-care (01) ==
LOC: M.ERS 09:12
DX: G89.29 Other chronic pain (principal); M54.42 Lumbago with sciatica, left side; J44.9 Chronic obstructive pulmonary disease, unspecified; I12.9 Hypertensive chronic kidney disease with stage 1 through stage 4 chronic kidney disease, or unspecified chronic kidney disease; N18.9 Chronic kidney disease, unspecified; Z86.718 Personal history of other venous thrombosis and embolism; Z87.891 Personal history of nicotine dependence; Z88.6 Allergy status to analgesic agent; Z88.1 Allergy status to other antibiotic agents; Z79.899 Other long term (current) drug therapy; Z98.51 Tubal ligation status

== ENCOUNTER 2020-10-26 09:19 | Emergency (ER) | payer MEDICARE ==
[~2020-10-26] VITALS: Ht 154.9 cm; Wt 39.9 kg
[~2020-10-26 09:19] MED LIST changes: +HYDROCODON-ACE1 EA11 PO
[2020-10-26 10:50] VITALS: BP 160/47
[2020-10-26] MEDS ORDERED: LIDODERM1 EACH TOP (10:50)
== END 2020-10-26 10:45 | disposition home or self-care (01) ==
LOC: M.ERS 09:19
DX: M47.816 Spondylosis without myelopathy or radiculopathy, lumbar region (principal); M25.552 Pain in left hip; G89.29 Other chronic pain; J44.9 Chronic obstructive pulmonary disease, unspecified; I12.9 Hypertensive chronic kidney disease with stage 1 through stage 4 chronic kidney disease, or unspecified chronic kidney disease; N18.30 Chronic kidney disease, stage 3 unspecified; Z87.891 Personal history of nicotine dependence; Z88.6 Allergy status to analgesic agent; Z88.1 Allergy status to other antibiotic agents; Z79.899 Other long term (current) drug therapy; Z98.51 Tubal ligation status; Z86.718 Personal history of other venous thrombosis and embolism

== ENCOUNTER 2020-11-09 10:32 | Emergency (ER) | payer MEDICARE ==
[~2020-11-09] VITALS: Ht 154.9 cm; Wt 39.9 kg
[2020-11-09 11:23] LABS: URINE BILIRUBIN NEGATIVE (Negative); URINE BLOOD NEGATIVE (Negative); URINE CLARITY CLEAR; URINE COLOR YELLOW; URINE GLUCOSE-RANDOM NEGATIVE (Negative); URINE KETONES NEGATIVE (Negative); URINE LEUKOCYTES-REFLEX NEGATIVE (Negative); URINE NITRITE-REFLEX NEGATIVE (Negative); URINE PROTEIN NEGATIVE (Negative); URINE SPECIFIC GRAVITY <= 1.005 (1.005-1.030); URINE UROBILINOGEN 0.2 E.U./dl (0.2-1.0)
[2020-11-09] MEDS ORDERED: ZANAFLEX4 MG PO (11:50)
[2020-11-09] MEDS ORDERED: HYDROCODON-ACE1 EAC7 PO (11:51)
[2020-11-09 12:34] VITALS: BP 183/57
== END 2020-11-09 12:36 | disposition home or self-care (01) ==
LOC: M.ERS 10:32
PROVIDERS: Nurse Practitioner Family
DX: M54.42 Lumbago with sciatica, left side (principal); M54.41 Lumbago with sciatica, right side; I12.9 Hypertensive chronic kidney disease with stage 1 through stage 4 chronic kidney disease, or unspecified chronic kidney disease; N18.30 Chronic kidney disease, stage 3 unspecified; G89.29 Other chronic pain; J44.9 Chronic obstructive pulmonary disease, unspecified; Z87.891 Personal history of nicotine dependence; Z88.6 Allergy status to analgesic agent; Z88.1 Allergy status to other antibiotic agents; Z88.2 Allergy status to sulfonamides; Z88.8 Allergy status to other drugs, medicaments and biological substances; Z90.49 Acquired absence of other specified parts of digestive tract; Z86.718 Personal history of other venous thrombosis and embolism; Z87.01 Personal history of pneumonia (recurrent); Z98.51 Tubal ligation status

== ENCOUNTER 2020-12-03 16:07 | Emergency (ER) | payer MEDICARE ==
[~2020-12-03] VITALS: Ht 144.8 cm; Wt 41.0 kg
[2020-12-03] MEDS ORDERED: NORVASC10 MG PO (16:17)
[2020-12-03] MEDS ORDERED: CEFDINIR300 MG PO (16:18)
[2020-12-03] MEDS ORDERED: GUAIFENESIN-CO473 ML PO (16:18)
[2020-12-03] MEDS ORDERED: MEDROLDOSEPACK PO ×2 (16:18→17:53)
[2020-12-03] MEDS ORDERED: HYDROCODON-ACE1 EAC7 PO (17:55)
[2020-12-03] MEDS ORDERED: ZOFRAN ODT4 MG PO (18:11)
[2020-12-03 18:28] VITALS: BP 157/71
== END 2020-12-03 18:27 | disposition home or self-care (01) ==
LOC: M.ERS 16:07
DX: M54.41 Lumbago with sciatica, right side (principal); Z20.822 Contact with and (suspected) exposure to COVID-19; J98.8 Other specified respiratory disorders; J44.9 Chronic obstructive pulmonary disease, unspecified; I13.10 Hypertensive heart and chronic kidney disease without heart failure, with stage 1 through stage 4 chronic kidney disease, or unspecified chronic kidney disease; N18.30 Chronic kidney disease, stage 3 unspecified; Z98.51 Tubal ligation status; Z90.49 Acquired absence of other specified parts of digestive tract; Z95.5 Presence of coronary angioplasty implant and graft; Z87.01 Personal history of pneumonia (recurrent); Z86.718 Personal history of other venous thrombosis and embolism; Z88.6 Allergy status to analgesic agent; Z88.1 Allergy status to other antibiotic agents; Z88.2 Allergy status to sulfonamides; Z88.8 Allergy status to other drugs, medicaments and biological substances; Z87.891 Personal history of nicotine dependence

== ENCOUNTER 2020-12-23 09:55 | Emergency (ER) | payer MEDICARE ==
[~2020-12-23] VITALS: Ht 152.4 cm; Wt 44.5 kg
[~2020-12-23 09:55] MED LIST changes: +GUAIFENESIN-CO473 ML PO; +ZOFRAN ODT4 MG PO
[2020-12-23] MEDS ORDERED: PREDNISONE 20 M20 M1 PO (12:17)
[2020-12-23 12:29] VITALS: BP 110/68
== END 2020-12-23 12:30 | disposition home or self-care (01) ==
LOC: M.ERS 09:55
DX: J06.9 Acute upper respiratory infection, unspecified (principal); Z20.822 Contact with and (suspected) exposure to COVID-19; J44.9 Chronic obstructive pulmonary disease, unspecified; Z87.891 Personal history of nicotine dependence; Z88.6 Allergy status to analgesic agent; Z88.1 Allergy status to other antibiotic agents; Z79.899 Other long term (current) drug therapy

== ENCOUNTER → 2021-01-11 | Outpatient (CLI) | payer MEDICARE | LOC: M.WC 10:00 | PROVIDERS: ATTEND Surgery | DX: I89.0 Lymphedema, not elsewhere classified (principal); I73.9 Peripheral vascular disease, unspecified; I10 Essential (primary) hypertension; J44.9 Chronic obstructive pulmonary disease, unspecified; Z87.891 Personal history of nicotine dependence; Z90.49 Acquired absence of other specified parts of digestive tract; Z98.49 Cataract extraction status, unspecified eye; Z95.828 Presence of other vascular implants and grafts ==

== ENCOUNTER 2021-01-22 01:53 | Inpatient (IN) | payer MEDICARE ==
[~2021-01-22] VITALS: Ht 147.3 cm; Wt 50.8 kg
[2021-01-22 02:00] VITALS: BP 129/57
[2021-01-22 02:24] LABS: URINE BILIRUBIN NEGATIVE (Negative); URINE BLOOD NEGATIVE (Negative); URINE CLARITY CLEAR; URINE COLOR STRAW; URINE GLUCOSE-RANDOM NEGATIVE (Negative); URINE KETONES NEGATIVE (Negative); URINE LEUKOCYTES-REFLEX NEGATIVE (Negative); URINE NITRITE-REFLEX NEGATIVE (Negative); URINE PROTEIN NEGATIVE (Negative); URINE UROBILINOGEN 0.2 E.U./dl (0.2-1.0)
[2021-01-22 03:30] LABS: HEMATOCRIT 31.7 % (37.0-47.0); HEMOGLOBIN 10.2 gm/dL (12.0-15.0); MCH 30.1 pg (26.0-34.0); MCHC 32.2 g/dL (28.0-37.0); MCV 93.7 fL (80.0-100.0); MPV 6.9 fl. (7.2-11.1); NUCLEATED RBCS 0 /100WBC; PLATELET COUNT* 363 thou/uL (150-400); RBC 3.39 mil/uL (4.20-5.00); RDW-CV 14.7 % (10.5-14.5); WBC 14.1 thou/uL (4.0-11.0)
[2021-01-22 03:39] LABS: CALCIUM 8.1 mg/dL (8.5-10.1); CREATININE 1.5 mg/dL (0.6-1.3); POTASSIUM 3.6 mmol/L (3.5-5.1)
[2021-01-22 03:49] LABS: ALBUMIN 3.5 g/dL (3.4-5.0); TOTAL BILIRUBIN 0.4 mg/dL (<0.1-1.0); TOTAL PROTEIN 6.7 g/dL (6.4-8.2)
[2021-01-22 03:52] LABS: MAGNESIUM 0.9 mg/dL (1.8-2.4)
[2021-01-22 07:28] LABS: ABSOLUTE LYMPHOCYTES 1.3 thou/uL (0.8-5.3); ABSOLUTE NEUTROPHILS 12.8 thou/uL (1.6-8.1); ATYPICAL LYMPHS 2 %; METAMYELOCYTES 1 %; PLATELET ESTIMATE ADEQUATE
--- NOTE | 2021-01-22 09:08 | EKG ---
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1945 Requested By: Graciela Bernard Order Number: [id number] MD: Ismael Zhang Measurements Intervals [place] Rate: 105 P: 63 MT: 136 QRS: -40 QRSD: 77 T: 135 QT: 290 QTc: 384 Interpretive Statements Sinus tachycardia Inferior infarct, old Probable anterior infarct, old Lateral leads are also involved Compared to ECG 08/16/2020 15:14:42 Myocardial infarct finding now present Sinus rhythm no longer present Electronically Signed On 01-22-2021 9:08:10 CDT by Ismael Zhang [email or web address] <ELECTRONICALLY SIGNED> By: Ismael Zhang MD, FACC 01/22/2108 6 6 Ismael Zhang MD, [facility] /EPI
[2021-01-22 10:18] VITALS: BP 120/52
--- NOTE | 2021-01-22 10:28 | NUR ---
PT GIVEN INPATIENT BED, CLEAR LIQUID BREAKFAST TRAY AND A PUREWICK.
--- NOTE | 2021-01-22 11:01 | NUR ---
PT'S DAUGHTER, JOE, HAS PT'S PERMISSION TO RECEIVE PT INFO
--- NOTE | 2021-01-22 11:02 | NUR ---
PT'S DOXYCYCLINE WAS TITRATED TO 50ML/HR DUE TO PT C/O BURNING AT IV SITE. PT DENIES CURRENT BURNING.
[2021-01-22 14:33] VITALS: BP 90/40
[2021-01-22 16:15] VITALS: BP 109/45
--- NOTE | 2021-01-22 17:06 | NUR ---
PATIENT COMES TO ROOM 102 VIA HOSPITAL BED FROM ER. PATIENT ADMITTED TODAY FOR SUDDEN SOA AND FEVER. TEMP 101f. IN ER. PATIENT IS AWAKE AND ORIENTED. DIFFICULT TO UNDERSTAND PATIENT WHEN SHE SPEAKS. IV SITE LFA PATENT. PATIENT ON O2W 2 LITERS PER NC. UP TO COMMODE UPON ARRIVAL. VOIDED 200ML CLEAR URINE, AND HAD BROWN FORMED BM. BACK TO BED WITH ASSIST.
[2021-01-22 19:45] VITALS: BP 106/42
[2021-01-23] VITALS: BP 123/60
[2021-01-23 04:00] VITALS: BP 127/83
[2021-01-23 04:35] LABS: HEMATOCRIT 25.9 % (37.0-47.0); HEMOGLOBIN 8.5 gm/dL (12.0-15.0); MCH 30.4 pg (26.0-34.0); MCHC 32.7 g/dL (28.0-37.0); MCV 93.1 fL (80.0-100.0); MPV 6.9 fl. (7.2-11.1); RBC 2.78 mil/uL (4.20-5.00); RDW-CV 15.1 % (10.5-14.5); WBC 18.9 thou/uL (4.0-11.0)
--- NOTE | 2021-01-23 04:52 | NUR ---
PT AO X4 LYING IN BED ASLEEP AT START OF SHIFT. SATTING APPROPRIATLY ON 2L NC. PT REPORTS NO PAIN BUT DID COMPLAIN OF RESTLESS LEG SX IN EARLY AM, STATES SHE USES A CREAM FOR THIS AT HOME. PT HAS SPEECH IMPEDIMENT AND IS DIFFICULT TO UNDERSTAND AT TIMES. PT STANDBY ASSIST TO BSC AND VOIDS CLEAR YELLOW URINE IN ADEQUATE AMOUNTS. VSS, BED ALARM ON FOR SAFETY, CALL LIGHT IN REACH. PT GETTING IV ANTIBIOTICS PER EMAR WITH OUT PROBLEM.
[2021-01-23 04:57] LABS: ALBUMIN 2.7 g/dL (3.4-5.0); CALCIUM 7.9 mg/dL (8.5-10.1); CREATININE 1.1 mg/dL (0.6-1.3); MAGNESIUM 1.6 mg/dL (1.8-2.4); POTASSIUM 3.9 mmol/L (3.5-5.1); TOTAL BILIRUBIN 0.2 mg/dL (<0.1-1.0)
[2021-01-23 07:15] VITALS: BP 1405/61
[2021-01-23 07:20] VITALS: BP 138/78
[2021-01-23 12:00] VITALS: BP 106/41
--- NOTE | 2021-01-23 14:22 | NUR ---
CM spoke with Pt's dtr via phone. Pt resides at home with her and dtr. Normally independent, family assist if needed. Pt has a walker that she can use. Pt has home o2 through [employer]. Hx of [facility]. Hx of skilled at [facility]. Therapy evals pending. WBC elevated. PUI. On 2L. Following for dc needs, anticipate home with HH.
[2021-01-23 16:00] VITALS: BP 117/72
--- NOTE | 2021-01-23 16:22 | NUR ---
AT 1215 PATIENT IV DC'D DUE TO INFILTRATION LEFT WRIST. DRESSING APPLIED UNTIL NO BLEEDING. ATTEMPT IV X2. UNSUCESSFUL. ANOTHER RN ATTEMPTED, AND UNSUCCESSFUL. PAGED DR SOTO IN REGARD TO PATIENTS POSSIBLE NEED FOR A PIC LINE. ALSO CALLED IR.
--- NOTE | 2021-01-23 18:23 | NUR ---
PATIENT HAD A FAIR DAY. PATIENT HAS MANY REQUESTS FREQUENTLY. PATIENT REMAINS ON OXYGEN TODAY. IV ACCESS IS POOR. PATIENT TO HAVE PIC LINE PLACED TOMORROW. PATIENT IS UP TO COMMODE MULTIPLE TIMES DURING THE DAY. PATIENT DOES HAVE NEW IV SITE RIGHT FOREARM. ANTIBIOTIC GOING AT PRESENT.
[2021-01-24 00:45] VITALS: BP 116/36
[2021-01-24 04:28] VITALS: BP 119/51
[2021-01-24 04:45] LABS: HEMATOCRIT 28.1 % (37.0-47.0); HEMOGLOBIN 9.1 gm/dL (12.0-15.0); MCH 30.4 pg (26.0-34.0); MCHC 32.4 g/dL (28.0-37.0); MCV 93.8 fL (80.0-100.0); MPV 7.5 fl. (7.2-11.1); RDW-CV 14.6 % (10.5-14.5); WBC 19.6 thou/uL (4.0-11.0)
--- NOTE | 2021-01-24 05:00 | NUR ---
PT AO X4, HEART NSR, SHE IS SATTING 90-95 ON 2L NC, PT HAS WET COUGH WITH COURSE LUNGS, COUGH WITH WHITE THICK FOAMY SPUTUM. ORDER WAS OBTAINED FOR COUGH MEDS WHICH HAS HELPED, PT WAS GIVEN LASIX 40MG IV LAST HS AND HAS HAD OVER 1000 mL CLEAR YELLOW URINE OUT. HEPARIN FOR VTE, MEDS GIVEN PER JUL, CALL LIGHT WITHIN REACH AND BED ALARM ON FOR PT SAFETY.
[2021-01-24 05:51] LABS: ALBUMIN 3.2 g/dL (3.4-5.0); CALCIUM 8.4 mg/dL (8.5-10.1); CREATININE 1.1 mg/dL (0.6-1.3); MAGNESIUM 1.6 mg/dL (1.8-2.4); POTASSIUM 4.3 mmol/L (3.5-5.1); TOTAL BILIRUBIN 0.2 mg/dL (<0.1-1.0); TOTAL PROTEIN 6.6 g/dL (6.4-8.2)
[2021-01-24 07:15] VITALS: BP 108/43
[2021-01-24 12:00] VITALS: BP 117/44
--- NOTE | 2021-01-24 15:05 | NUR ---
Covid negative. Therapies to see. DC iso. PNA, 2L o2.
[2021-01-24 16:00] VITALS: BP 98/39
--- NOTE | 2021-01-24 16:55 | NUR ---
PT REMAINED ALERT AND ORIENTED. PICC PLACED. HEART MONITORED. ACCU CHECKS COMPLETED. FALL RISK PRECAUTIONS IN PLACE. HOURLY ROUNDING COMPLETED. TRANSFER TO TELE AT SHIFT CHANGE
[2021-01-24 21:00] VITALS: BP 121/43
[2021-01-25 00:44] VITALS: BP 106/42
[2021-01-25 04:29] VITALS: BP 94/56
[2021-01-25 08:00] VITALS: BP 93/46
--- NOTE | 2021-01-25 12:46 | NUR ---
PLAN OF CARE: PHYSICIAN INFORMS THAT THE PT IS NOT MEDICALLY STABLE AT THIS TIME. PT REMAINS ON 3.5L O2, BUT USES HOME O2 AT BASELINE. CM WILL REMAIN AVAILABLE TO ASSIST AND FOLLOW WITH CM D/C PLANNING NEEDED.
[2021-01-25 16:00] VITALS: BP 104/42
[2021-01-25 20:20] VITALS: BP 125/54
[2021-01-26] VITALS (7 sets, daily range): BP systolic 99–121; BP diastolic 36–65
--- NOTE | 2021-01-26 04:13 | NUR ---
ASSUMED CARE OF PT AT 1900. PT IS ALERT AND ORIENTED. VSS. PERRLA. PT IS ON 4 LITERS NASAL CANNULA. PT IS IN SINUS RYTHM ON THE TELEMETRY. PT IS RESTING COMFORTABLY IN BED. RESPIRATIONS ARE EVEN AND NONLABORED. WILL CONTINUE TO MONITOR PT.
[2021-01-27 03:26] LABS: HEMATOCRIT 25.8 % (37.0-47.0); HEMOGLOBIN 8.5 gm/dL (12.0-15.0); MCHC 32.8 g/dL (28.0-37.0); MCV 91.5 fL (80.0-100.0); MPV 7.2 fl. (7.2-11.1); RBC 2.81 mil/uL (4.20-5.00); RDW-CV 14.9 % (10.5-14.5); WBC 11.6 thou/uL (4.0-11.0)
[2021-01-27 03:45] LABS: CALCIUM 7.7 mg/dL (8.5-10.1); CREATININE 1.5 mg/dL (0.6-1.3); POTASSIUM 4.5 mmol/L (3.5-5.1)
[2021-01-27 04:12] VITALS: BP 95/40
--- NOTE | 2021-01-27 04:25 | NUR ---
PATIENT HAS REMAINED ALERT AND ORIENTED X 4 WITH SLIGHT FORGETFULNESS. CALLS APPROPRIATELY. Q2H TURNS. FALL PRECAUTIONS IN PLACE. VITAL SIGNS STABLE ON O2 PAUL[place] 2.5L/MIN WITH SOFT BP. MEDICATED FOR CHRONIC PAIN X 2 OF THIS WRITING TO GOOD EFFECT. PUREWICK UTILIZED FOR URINARY INCONT. CONTINUE TO MONITOR.
[2021-01-27 08:00] VITALS: BP 98/46
[2021-01-27 12:11] VITALS: BP 91/39
--- NOTE | 2021-01-27 15:45 | NUR ---
PLAN OF CARE: PHYSICIAN INFORMS THAT PT MAY BE READY TO D/C OVER THE WEEKEND. PT MAY BENEFIT FROM HH AT D/C AND ALSO MAY NEED HOME OXYGEN PENDING R.T. REST AND EXERCISE. PT DID NOT HAVE HOME OXYGEN PRIOR TO ADMIT PER HER DTR. CM WILL REMAIN AVAILABLE TO ASSIST AND FOLLOW NEEDED.
[2021-01-27 20:00] VITALS: BP 113/46
[2021-01-28] VITALS: BP 110/37
[2021-01-28 04:00] VITALS: BP 110/60
--- NOTE | 2021-01-28 04:12 | NUR ---
ASSUMED PT CARE AT APPROX. 1930. PT IS A/OX4. PT IS TRACING SR ON CANDY VENDOR. PT HAS A NPC AND IS ON 4L NC. PT C/O GENERALIZED PAIN TO BACK, SHOULDERS, AND JOINTS. MEDICATION ADMINISTERED PRESCRIBED. FALL PRECAUTIONS IN PLACE FOR SAFETY. PT REPOSITIONED Q2H. HOURLY ROUNDS COMPLETED. PT CURRENTLY IN BED ASLEEP. NO ACUTE CHANGES THIS SHIFT. WILL CONT. TO MONITOR.
[2021-01-28 07:51] VITALS: BP 106/48
[2021-01-28 08:49] LABS: POTASSIUM 5.1 mmol/L (3.5-5.1)
[2021-01-28 12:22] VITALS: BP 92/40
--- NOTE | 2021-01-28 14:29 | EKG ---
[place] [address] ELECTROCARDIOGRAM REPORT Name: CHAYO PRESTON Room: [place] [address] ADM IN M.R.#: [id number] Admission: 01/22/21 Attend Phys: Izzy Aldana, Discharge: Date of : 45 Date of Service: 01/28/21 1419 Report #: [id number] THIS REPORT FOR: //name// [facility] Test Date: 2021-01-28 Test Time: 14:19:39 Pat Name: CHAYO PRESTON Department: Room: [place] [address] Gender: F Oncology Pharmacist: DOMINICK : 1945 Requested By: Colleen Ayala Order Number: [id number] MD: Alan Diana Measurements Intervals [place] Rate: 67 P: 36 KS: 140 QRS: -20 QRSD: 91 T: -1 QT: 404 QTc: 427 Interpretive Statements Sinus rhythm Inferolateral infarct, old Compared to ECG 01/27/2021 17:52:54 No significant changes Electronically Signed On 01-28-2021 14:29:07 CDT by Alan Diana [email or web address] <ELECTRONICALLY SIGNED> By: Alan Diana MD, FAC 01/28/21 1429 1419 1419 Alan Diana MD, [facility] /EPI
[2021-01-28 14:32] LABS: BE -7.8 mmol/L (-2 to +3); PCO2 41.5 mmHg (35.0-45.0); PO2 85.1 mmHg (75.0-100.0)
[2021-01-28 16:27] LABS: HEMATOCRIT 25.6 % (37.0-47.0); HEMOGLOBIN 8.4 gm/dL (12.0-15.0); MCH 30.1 pg (26.0-34.0); MCHC 32.9 g/dL (28.0-37.0); MCV 91.7 fL (80.0-100.0); NUCLEATED RBCS 0 /100WBC; PLATELET COUNT* 304 thou/uL (150-400); RBC 2.79 mil/uL (4.20-5.00); RDW-CV 15.1 % (10.5-14.5); WBC 11.9 thou/uL (4.0-11.0)
--- NOTE | 2021-01-28 16:42 | NUR ---
PT REMAINED ALERT AND ORIENTED. RAPID RESPONSE TODAY DUE TO DECREASE IN O2 SATS. O2 INCREASED. CHEST X-RAY WORSENED. ATIVAN AND LASIX GIVEN TO HELP WITH CRACKLES. TORREZ PLACED FOR RETENTION. CONSULTS PLACED FOR NEPHROLOGY AND POLMONOLOGY. PT RESTING IN BED AFTER IV ATIVAN. CALL LIGHT IN REACH. HOURLY ROUNDING COMPLETED. FALL RISK PRECAUTIONS IN PLACE.
[2021-01-28 16:43] LABS: ALBUMIN 2.6 g/dL (3.4-5.0); CALCIUM 7.7 mg/dL (8.5-10.1); CREATININE 2.2 mg/dL (0.6-1.3); POTASSIUM 4.6 mmol/L (3.5-5.1); TOTAL BILIRUBIN 0.3 mg/dL (<0.1-1.0); TOTAL PROTEIN 5.5 g/dL (6.4-8.2)
[2021-01-28 17:26] LABS: ABSOLUTE EOSINOPHILS 0.2 thou/uL (0.0-0.7); ABSOLUTE LYMPHOCYTES 0.5 thou/uL (0.8-5.3); ABSOLUTE MONOCYTES 0.4 thou/uL (0.0-1.2); ABSOLUTE NEUTROPHILS 10.8 thou/uL (1.6-8.1)
[2021-01-28 17:27] LABS: HYPOCHROMASIA Occasional; PLATELET ESTIMATE ADEQUATE
[2021-01-28 19:45] VITALS: BP 91/37
[2021-01-28 23:00] VITALS: BP 92/44
[2021-01-29] VITALS (18 sets, daily range): BP systolic 80–141; BP diastolic 34–111
--- NOTE | 2021-01-29 05:07 | NUR ---
PT A&O X 4. O2 SAT NOT STABLE AT THE BEGINNING OF THE SHIFT. 4L- 10L VIA HF NC WITH BUBBLER. MUSCLE RELAXER GIVEN PER PT REQUEST. PT SLEPT MOST OF THE NIGHT. NPO FOR ST EVAL. TORREZ IN PLACE. WILL CONTINUE TO MONITOR.
[2021-01-29 05:13] LABS: HEMATOCRIT 26.5 % (37.0-47.0); HEMOGLOBIN 8.8 gm/dL (12.0-15.0); MCH 30.2 pg (26.0-34.0); MCHC 33.2 g/dL (28.0-37.0); MCV 91.1 fL (80.0-100.0); MPV 6.9 fl. (7.2-11.1); RBC 2.91 mil/uL (4.20-5.00); RDW-CV 15.2 % (10.5-14.5); WBC 11.6 thou/uL (4.0-11.0)
[2021-01-29 05:44] LABS: CREATININE 2.2 mg/dL (0.6-1.3); POTASSIUM 4.4 mmol/L (3.5-5.1)
--- NOTE | 2021-01-29 19:00 | NUR ---
PT. AOX4, SBP RANGE 80-100 AND DSP 30-40. DISCUSSED POC WITH DR. ESCALANTE, FREQUENT BP, HR AND SPO2 CHECKS, PT. STABILIZED TOWARDS END OF SHIFT. DAUGHTER VISITED BY BEDSIDE. PT. CONTINUED TO BE NPO PENDING QUARRY SUPERVISOR OPEN PIT SWALLOW EVAL. CALL LIGHT AND PERSONAL BELONGINGS PLACED WITHIN REACH. PT. RECOVERED TO 101/41 AND SPO2 AT 96% 6l O2 AT SHIFT CHANGE, IN STABLE CONDITION.
[2021-01-30] VITALS: BP 93/31
--- NOTE | 2021-01-30 04:24 | NUR ---
PT A&O X4. O2 SAT STABLE WITH 6-10L. NORCO GIVEN X 2 FOR BACK PAIN. NPO EXCEPT MEDS. UA DONE. TORREZ IN PLACE. IVF INFUISING ORDERED. CALL LIGHT WITHIN REACH. WILL CONTINUE TO MONITOR.
[2021-01-30 04:26] VITALS: BP 100/35
[2021-01-30 05:22] LABS: ALBUMIN 2.4 g/dL (3.4-5.0); CALCIUM 7.9 mg/dL (8.5-10.1); POTASSIUM 4.2 mmol/L (3.5-5.1); TOTAL BILIRUBIN 0.3 mg/dL (<0.1-1.0); TOTAL PROTEIN 5.1 g/dL (6.4-8.2)
[2021-01-30 09:00] VITALS: BP 96/37
[2021-01-30 11:27] VITALS: BP 101/39
[2021-01-30 15:42] VITALS: BP 112/41
--- NOTE | 2021-01-30 18:50 | NUR ---
PT. AOX4, VSS, BP AND SPO2 STABLE. RESUMED DIET POST SWALLOW STUDY BY GRAPHICS EDIT TECHNICIAN. NS CONTINUOUIS INFUSING AT 40 ML/HR TO PICC LINE ON R UA, 3L, NO COMPLICATIONS. CALL LIGHT AND PERSONAL BELONGINGS PLACED WITHIN REACH. PT. IN BED, IN STABLE CONDITION, WATCHING TV AT THIS TIME.
[2021-01-30 20:00] VITALS: BP 98/28
[2021-01-31] VITALS: BP 109/39
[2021-01-31 04:00] VITALS: BP 117/42
--- NOTE | 2021-01-31 04:10 | NUR ---
PT ALERT ORIENTED FORGETFUL. TURN Q [address] GR[address] TORREZ WITH CLEAR YELLOW. O2 AT 4 LITERS NC. NO EPISOIDS OF DESATURATION THIS SHIFT.
[2021-01-31 05:33] LABS: CREATININE 1.5 mg/dL (0.6-1.3); POTASSIUM 3.6 mmol/L (3.5-5.1)
[2021-01-31 08:00] VITALS: BP 109/41
[2021-01-31] MEDS ORDERED: TESSALON PERLE100 MG PO (09:41)
[2021-01-31] MEDS ORDERED: PREDNISONE 10 M10 MG PO (09:41)
[2021-01-31] MEDS ORDERED: CEFDINIR300 MG PO (09:41)
[2021-01-31 10:11] LABS: DIRECT BILIRUBIN 0.1 mg/dL (<0.1-0.3); TOTAL BILIRUBIN 0.3 mg/dL (<0.1-1.0)
[2021-01-31 11:59] VITALS: BP 118/45
[2021-01-31 16:12] VITALS: BP 118/48
--- NOTE | 2021-01-31 16:28 | NUR ---
PHYSICIAN INFORMS OF PLAN FOR THE PT TO D/C TODAY PENDING R.T. REST AND EXERCISE TESTING. PER RN R.T. PROVIDED VERBAL CONFIRMATION THAT THE PT NEEDED OXYGEN, AND PHYSICAL THERAPIST NOW RECOMMENDING SNF. RN TO INFORM PHYSICIAN. CM WILL REMAIN AVAILABLE TO ASSIST AND FOLLOW NEEDED.
--- NOTE | 2021-01-31 17:13 | NUR ---
PATIENT RESTING IN BED, EATING DINNER. SAT 96% ON 4L NASAL CANNULA. PICC TO RIGHT UPPER ARM WITH TRIPLE LUMEN, PATENT. TORREZ SECURELY INPLACE, TO DEPENDENT DRAINAGE WITHOUT COMPLICATIONS. ALERT AND ORIENTED X4 WIHT SOME FORGETFULLNESS. BLOOD SUGARS MONITORED. INSULIN GIVEN NEEDED. BED IN LOW/LOCKED POSITION. CALL LIGHT WITHIN REACH. ALL QUESTIONS AND CONCERNS ADDRESSED. NO C/O PAIN.
--- NOTE | 2021-01-31 17:41 | EKG ---
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
[2021-01-31 20:00] VITALS: BP 143/53
[2021-02-01] VITALS (9 sets, daily range): BP systolic 105–128; BP diastolic 37–49
--- NOTE | 2021-02-01 04:41 | NUR ---
PT ALERT ORIENTED. BEDREST TURN Q 2 HRS. PT STATED NO BM FOR 2 DAYS. PRUNE JUICE GIVEN. CONVEYANCER TRACING SR. O2 AT 4 LITERS NC. LORE DE LA O DD.
[2021-02-01 04:46] LABS: HEMATOCRIT 23.9 % (37.0-47.0); MCH 30.4 pg (26.0-34.0); MCHC 33.6 g/dL (28.0-37.0); MCV 90.4 fL (80.0-100.0); MPV 6.8 fl. (7.2-11.1); NUCLEATED RBCS 0 /100WBC; PLATELET COUNT* 270 thou/uL (150-400); RBC 2.64 mil/uL (4.20-5.00); RDW-CV 15.3 % (10.5-14.5); WBC 21.2 thou/uL (4.0-11.0)
[2021-02-01 05:20] LABS: ALBUMIN 2.7 g/dL (3.4-5.0); CALCIUM 8.1 mg/dL (8.5-10.1); CREATININE 1.2 mg/dL (0.6-1.3); MAGNESIUM 2.5 mg/dL (1.8-2.4); POTASSIUM 3.3 mmol/L (3.5-5.1); TOTAL BILIRUBIN 0.4 mg/dL (<0.1-1.0); TOTAL PROTEIN 5.4 g/dL (6.4-8.2)
[2021-02-01 05:43] LABS: ABSOLUTE LYMPHOCYTES 1.5 thou/uL (0.8-5.3); ABSOLUTE MONOCYTES 0.2 thou/uL (0.0-1.2); ABSOLUTE NEUTROPHILS 19.5 thou/uL (1.6-8.1); ANISOCYTOSIS 1+; PLATELET ESTIMATE ADEQUATE; POIKILOCYTOSIS 1+
[2021-02-01] MEDS ORDERED: LEVOFLOXACIN500 MG PO (13:21)
[2021-02-01] MEDS ORDERED: PREDNISONE 20 M20 MG PO (13:21)
--- NOTE | 2021-02-01 16:11 | 2DMMODE ---
[place] [address] 2 D/M-MODE ECHOCARDIOGRAM Name: CHAYO PRESTON Room: [address] IN [place].#: [id number] Admission: 01/22/21 Attend Phys: Izzy Aldana, Discharge: Date of : 45 Date of Service: 02/01/21 1611 Report #: [id number] THIS REPORT FOR: cc: Luca Ryder Brad DO Holkins,Zachary Aleman MD [facility] ~ APPROVED REPORT Study performed: 02/01/2021 10:01:37 EXAM: Comprehensive 2D, Doppler, and color-flow Echocardiogram Patient Location: In-Patient Room #: [facility] Status: routine BSA: 1.42 HR: 82 bpm BP: 128/45 mmHg Rhythm: NSR Other Information Study Quality: Good Indications Dyspnea Fever 2D Dimensions IVSd: 6.23 (7-11mm) LVOT Diam: 20.02 (18-24mm) LVDd: 42.18 mm PWd: 7.28 (7-11mm) Ascending Ao: 27.34 (22-36mm) LVDs: 26.37 (25-40mm) Volumes Left Atrial Volume (Systole) LA ESV Index: 18.20 mL/m2 Aortic Valve AoV Peak Deepak.: 1.69 m/s AO Peak Gr.: 11.46 mmHg LVOT Max P.43 mmHg AO Mean Gr.: 5.99 mmHg LVOT Mean P.82 mmHg LVOT Max V: 1.27 m/s AO V2 VTI: 36.94 cm LVOT Mean V: 0.76 m/s CHERELLE (VTI): 2.43 cm2 LVOT V1 VTI: 28.51 cm AI Humphreys: 4.57 m/s2 [place] [address] 2 D/M-MODE ECHOCARDIOGRAM Name: CHAYO PRESTON Room: [address] IN ..#: [id number] Admission: 01/22/21 Attend Phys: Izzy Aldana, Discharge: Date of : 45 Date of Service: 02/01/21 1611 Report #: [id number] AI PHT: 251.31 ms Mitral Valve E/A Ratio: 0.75 MV Decel. Time: 182.33 ms MV E Max Deepak.: 0.88 m/s MV PHT: 52.88 ms MVA (PHT): 4.16 cm2 TDI E/Lateral E': 9.78 E/Medial E': 12.57 Medial E' Deepak.: 0.07 m/s Lateral E' Deepak.: 0.09 m/s Pulmonary Valve PV Peak Deepak.: 1.02 m/s PV Peak Gr.: 4.17 mmHg Tricuspid Valve RAP Estimate: 5.00 mmHg TR Peak Gr.: 25.69 mmHg RVSP: 31.00 mmHg PA Pressure: 31.00 mmHg Left Ventricle The left ventricle is normal size. There is normal LV segmental wall motion. There is normal left ventricular wall thickness. Left ventricular systolic function is normal. The left ventricular ejection fraction is within the normal range. LVEF is 60-65%. Grade I - abnormal relaxation pattern. Right Ventricle The right ventricle is normal size. The right ventricular systolic function is normal. Atria The left atrium size is normal. The right atrium size is normal. Aortic Valve Mild aortic valve sclerosis. Mild to moderate aortic regurgitation. There is no aortic valvular stenosis. Mitral Valve The mitral valve is normal in structure. There is no mitral valve regurgitation noted. No evidence of mitral valve stenosis[place] [address] 2 D/M-MODE ECHOCARDIOGRAM Name: CHAYO PRESTON Seth Room: [address]#: [id number] Admission: 01/22/21 Attend Phys: Izzy Aldana, Discharge: Date of : 45 Date of Service: 02/01/21 1611 Report #: [id number] The tricuspid valve is normal in structure. Mild tricuspid regurgitation. Mild pulmonary hypertension. Pulmonic Valve The pulmonary valve is normal in structure. There is no pulmonic valvular regurgitation. Great Vessels The aortic root is normal in size. IVC is normal in size and collapses >50% with inspiration. Pericardium There is no pericardial effusion. <Conclusion> The left ventricle is normal size. There is normal left ventricular wall thickness. Left ventricular systolic function is normal. The left ventricular ejection fraction is within the normal range. LVEF is 60-65%. Grade I - abnormal relaxation pattern. The right ventricle is normal size. The left atrium size is normal. Mild aortic valve sclerosis. Mild to moderate aortic regurgitation. There is no aortic valvular stenosis. The mitral valve is normal in structure. The tricuspid valve is normal in structure. Mild tricuspid regurgitation. Mild pulmonary hypertension. IVC is normal in size and collapses >50% with inspiration. There is no pericardial effusion. There is normal LV segmental wall motion. <ELECTRONICALLY SIGNED> By: Zachary Burkett MD, FACC 02/01/21 161 10 10 Zachary Burkett MD, FACC /INF
--- NOTE | 2021-02-01 18:57 | NUR ---
PATIENT DISCHARGED AT THIS TIME VIA WHEELCHAIR ACCOMPANIED BY DAUGHTER AND TO PRIVATE VEHICLE. PATIENT WAS DISCHARGED HOME ON 4L OXYGEN, NASAL CANNULA. DAUGHTER CALLED [facility] BEFORE LEAVING. TORREZ REMOVED AT THIS TIME, CATHETER TUBING INTACT. PICC LINE REMOVED AT THIS TIME. CATHETER INTACT. GAUZE APPLIED TO AREA WITH PRESSURE. SITE COVERED WITH GAUZE AND BANDAID. PATIENT TOLERATED PROCEDURES WITHOUT DIFFICULTIES. GLYCERIN SUPPOSITORY GIVEN X1. MIRALAX GIVEN X1. POTASSIUM GIVEN X1. DISCHARGE INSTRUCTIONS REVIEWED WITH DAUGHTER, SHE ACKNOWLEDGE UNDERSTANDING. NO QUESTIONS OR CONCERNS VOICED.
== END 2021-02-02 00:04 | disposition home or self-care (01) | DRG 177 ==
LOC: M.ERS 01:53 → M.ORTHSURG 05:20 → M.TBA-ER 05:20 → M.ORTHSURG 16:45 → M.2W 01-24 18:52
PROVIDERS: Emergency Medicine; Family Medicine; Internal Medicine; Internal Medicine Critical Care Medicine; Internal Medicine Nephrology; Pediatrics; ADMIT Internal Medicine; ATTEND Internal Medicine
DX: J15.6 Pneumonia due to other Gram-negative bacteria (principal); J96.21 Acute and chronic respiratory failure with hypoxia; J44.1 Chronic obstructive pulmonary disease with (acute) exacerbation; T88.3XXA Malignant hyperthermia due to anesthesia, initial encounter; N17.9 Acute kidney failure, unspecified; E87.1 Hypo-osmolality and hyponatremia; E87.4 Mixed disorder of acid-base balance; E46 Unspecified protein-calorie malnutrition; B37.0 Candidal stomatitis; J44.0 Chronic obstructive pulmonary disease with (acute) lower respiratory infection; Z20.822 Contact with and (suspected) exposure to COVID-19; N18.30 Chronic kidney disease, stage 3 unspecified; F03.90 Unspecified dementia, unspecified severity, without behavioral disturbance, psychotic disturbance, mood disturbance, and anxiety; G89.29 Other chronic pain; M25.559 Pain in unspecified hip; K59.00 Constipation, unspecified; I12.9 Hypertensive chronic kidney disease with stage 1 through stage 4 chronic kidney disease, or unspecified chronic kidney disease; Y83.8 Other surgical procedures as the cause of abnormal reaction of the patient, or of later complication, without mention of misadventure at the time of the procedure; Y82.8 Other medical devices associated with adverse incidents; M54.9 Dorsalgia, unspecified; D64.9 Anemia, unspecified; E03.9 Hypothyroidism, unspecified; Z68.23 Body mass index [BMI] 23.0-23.9, adult; Z79.899 Other long term (current) drug therapy; Z90.49 Acquired absence of other specified parts of digestive tract; Z86.718 Personal history of other venous thrombosis and embolism; Z98.49 Cataract extraction status, unspecified eye; Z88.6 Allergy status to analgesic agent; Z88.1 Allergy status to other antibiotic agents; Z88.2 Allergy status to sulfonamides; Z88.8 Allergy status to other drugs, medicaments and biological substances; Z87.891 Personal history of nicotine dependence; Y92.89 Other specified places as the place of occurrence of the external cause